=== PATIENT | male | born 1940 | race Caucasian/White ===

== ENCOUNTER → 2016-06-06 | Outpatient (CLI) | payer MEDICARE ==
[~2016-06-06] MED LIST: AMIO200T PO; APIX5TAB PO; BACTOIN EACH NARE; BUME1TAB PO; BUME1TAB28 PO; CARV12.52 PO; CARV3.125 PO; CARV6.25 PO; CEPH500C PO; CLON2TAB PO; COLC1TAB15 PO; COQ-100C2 PO; COUM2TAB PO; DIAZ5 PO; DIGO0.12 PO; ISOS20TA PO; ISOS60TA PO; MAGN1TAB14 PO; METO2.5T PO; MIRA33504 PO; MORP10S2 PO; MORP20SO2 SL; MORP25IN2; MULT-135 PO; NEXI40CA PO; PLAV75TA29 PO; POTA-163 PO; POTA75TA2 PO; PRED10 PO; REQU3TAB PO; ROSU10 PO; SPIRCAP INH; SYMB160A INH; VENTAER INH; VITATAB11 PO
[2016-06-06 14:18] LABS: BLOOD GAS CARBOXYHEMOGLOBIN 2.1 % (0-4); BLOOD GAS HCO3 26 mmol/L (22-26); BLOOD GAS O2 HGB SATURATION 79 % (90-100); BLOOD GAS OXYGEN CONTENT 13.3 Vol % (12.0-20.0); BLOOD GAS PCO2 34 mmHg (38-42); BLOOD GAS PO2 45 mmHg (61-120); BLOOD GAS TOTAL HGB 11.9 G/DL (12.0-16.0); TEMP CORR TO 98.6
[2016-06-06 14:19] LABS: CRITICAL VALUE YES; DRAW SITE RT RADIAL; FIO2 21 %; NUMBER OF ARTERIAL PUNCTURES 1; STAT NO; ULNAR PULSE PRESENT
--- NOTE | 2016-06-07 09:45 | RSPPFT ---
DATE OF PROCEDURE: 06/06/16 COMMENTS: Spirometry with FVC of 1.6 predicted 2.9, FEV1 of 0.9 predicted 2.0, FEV1/FVC ratio 57% predicted 70%. Post-bronchodilator FVC increases to 1.9 and FEV1 1.0. Severe air trapping is present with RV at 3.6 predicted 2.1. DLCO is 32% of predicted. IMPRESSION: On the basis of the above, patient has a moderately severe obstructive lung defect with responsiveness to acutely inhaled bronchodilator, significant air trapping and decreased DLCO. Patient does de-saturate with exertion.
== END ==
LOC: HRSP 13:10
PROVIDERS: ATTEND Internal Medicine Pulmonary Disease
DX: J61 Pneumoconiosis due to asbestos and other mineral fibers (principal)
CPT/HCPCS: 36600; 82805; 94060; 94620; 94726; 94729

== ENCOUNTER 2016-06-13 04:55 | Emergency (ER) | payer MEDICARE ==
[~2016-06-13] VITALS: Ht 170.2 cm; Wt 86.5 kg
[~2016-06-13 04:55] MED LIST changes: -AMIO200T PO; -APIX5TAB PO; -BACTOIN EACH NARE; -BUME1TAB PO; -BUME1TAB28 PO; -CARV12.52 PO; -CARV3.125 PO; -CARV6.25 PO; -CEPH500C PO; -CLON2TAB PO; -COLC1TAB15 PO; -COQ-100C2 PO; -COUM2TAB PO; -DIGO0.12 PO; -ISOS20TA PO; -ISOS60TA PO; -MAGN1TAB14 PO; -METO2.5T PO; -MIRA33504 PO; -MORP10S2 PO; -MORP20SO2 SL; -MORP25IN2; -MULT-135 PO; -NEXI40CA PO; -PLAV75TA29 PO; -POTA-163 PO; -POTA75TA2 PO; -PRED10 PO; -REQU3TAB PO; -ROSU10 PO; -SPIRCAP INH; -SYMB160A INH; -VITATAB11 PO
[2016-06-13 04:59] VITALS: BP 118/64; PULSE 83; RESP 18; TEMP 97.8; O2SAT 90
--- NOTE | 2016-06-13 05:16 | PD ---
HPI . Epistaxis Chief Complaint: Nosebleed Time Seen by Provider: 05:04 Travel History International Travel<30 days: No Contact w/Intl Traveler<30days: No Traveled to known affect area: No History of Present Illness HPI Patient presents with a chief complaint of epistaxis. He reports frequent nosebleeds. He is on oxygen at home. He has treated it at home with some nasal packing. Bleeding is currently controlled. PFSH Past Medical History Hx Anticoagulant Therapy: Yes Anemia: Yes Arthritis: Yes Atrial Fibrillation: Yes Anxiety: Yes Heart Rhythm Problems: Yes Cardiomyopathy: Yes High Cholesterol: Yes Chest Pain: Yes Congestive Heart Failure: Yes COPD: Yes Coronary Artery Disease: Yes Diabetes: No Diminished Hearing: Yes GERD: Yes Gout: Yes Hiatal Hernia: Yes Hypertension: Yes Kidney Stones: Yes Neurologic: No Immunizations Current: Yes Pneumonia: Yes Renal Failure: Yes Sleep Apnea: Yes (wears cpap) Past Surgical History AICD: Yes (pacer/defib [facility]) Cholecystectomy: Yes Coronary Artery Bypass Graft: Yes (multiple) Pacemaker: Yes ([facility]) Other Surgery: Yes Social History Alcohol Use: No Tobacco Use: No Substance Use: No Allergies-Medications (Allergen,Severity, Reaction): Coded Allergies: Ambien (Unverified Allergy, Mild, 06/13/16) Decadron (Verified Allergy, Unknown, 06/13/16) "steroid psychosis" HMG-CoA Reductase Inhibitors (Verified Allergy, Unknown, 06/13/16) muscle pain Hydrocodone (Verified Allergy, Unknown, 06/13/16) chest pain Reported Meds & Prescriptions Reported Meds & Active Scripts Active Valium (Diazepam) 5 Mg Tab 5 Mg PO TID PRN Reported Isosorbide Mononitrate 20 Mg Tab 60 Mg PO DAILY Take 2 doses 7 hours apart. Potassimin (Potassium) 75 Mg Tab 80 Meq PO BID Requip (Ropinirole) 3 Mg Tab 3 Mg PO HS Plavix (Clopidogrel Bisulfate) 75 Mg Tab 75 Mg PO DAILY Nexium (Esomeprazole DR) 40 Mg Capdr 40 Mg PO DAILY Morphine Liq (Morphine Sulfate) 20 Mg/5 Ml Liq 20 Mg PO Q4H Morphine Sulfate 25 Mg/Ml Inj Metolazone 2.5 Mg Tab 2.5 Mg PO DAILY Magnesium 400 Mg Tab 400 Mg PO DAILY Digoxin 0.125 Mg Tab 0.125 Mg PO DAILY Crestor (Rosuvastatin Calcium) 10 Mg Tab 10 Mg PO DAILY PRN Coumadin (Warfarin) 2 Mg Tab 2 Mg PO DAILY Coreg (Carvedilol) 6.25 Mg Tab 6.25 Mg PO BID Colchicine 0.6 Mg Tab 0.6 Mg PO DAILY Bumex (Bumetanide) 2 Mg Tab 2 Mg PO BID Clonazepam 2 Mg Tab 2 Mg PO DAILY Bactroban Nasal Oint (Mupirocin Nasal Oint) 2% Oint 1 Applic EACH NARE BID For 5 days. Amiodarone (Amiodarone HCl) 200 Mg Tab 200 Mg PO DAILY Ventolin Hfa 18 GM Inh (Albuterol Sulfate) 90 Mcg/Act Aer 2 Puff INH Q4-6H PRN Review of Systems HENT: Positive: Nosebleed Respiratory: Positive: Shortness of Breath (chronic shortness of breath on home oxygen) Physical Exam Narrative GENERAL: Healthy-appearing older man sitting on the side of the bed with oxygen. SKIN: Warm and dry. HEAD: Atraumatic. Normocephalic. EYES: Pupils equal and round. ENT: He has scant blood on the tissue that is in his left nostril. Kiesselbach' s plexus is hyperemic on the left. There is no active bleeding. NECK: Trachea midline. CARDIOVASCULAR: Regular rate and rhythm. RESPIRATORY: No accessory muscle use. MUSCULOSKELETAL: No obvious deformities. No edema. NEUROLOGICAL: Awake and alert. No obvious cranial nerve deficits. Motor grossly within normal limits. Normal speech. PSYCHIATRIC: Appropriate mood and affect; insight and judgment normal. Data Data Last Documented VS Vital Signs Date Time Temp Pulse Resp B/P Pulse Ox O2 Delivery O2 Flow Rate FiO2 06/13/16 04:59 97.8 83 18 118/64 90 Nasal Cannula Orders Cocaine 4% Top Soln (Cocaine 4% Top Soln (06/13/16 05:30) Lorazepam (Ativan) (06/13/16 06:00) MDM Medical Decision Making Medical Screen Exam Complete: Yes Emergency Medical Condition: Yes Differential Diagnosis Differential diagnosis of epistaxis includes but is not limited to local trauma , friable mucous membranes, coagulopathy, platelet dysfunction, upper respiratory infection, nasal fracture Narrative Course Patient presents for treatment of epistaxis. Procedures Procedure Narrative NASAL PACKING: The L nare was anesthetized topically with cocaine. The nare was packed with a cotton ball. I tried to insert a Merocel sponge. However, the patient has had a previous nasal fracture and insertion of Merocel sponge was not possible. Adequate control of bleeding was obtained. The patient was observed without recurrence of bleeding. Patient tolerated procedure well. Diagnosis Primary Impression: Epistaxis Patient Instructions: Epistaxis (DC), General Instructions Additional Instructions: You may remove the cotton ball before bed tonight. Disposition: 01 DISCHARGE HOME Condition: Stable Sharona Lemus MD Jun 13, 2016 05:16
[2016-06-13] MEDS ORDERED: COCAINE HCL 4% SOLN 4 ML VIAL TOPICAL ONE (05:30)
[2016-06-13] MEDS ORDERED: NEXI40CA PO (05:53)
[2016-06-13] MEDS ORDERED: PLAV75TA29 PO (05:53)
[2016-06-13] MEDS ORDERED: CLON2TAB PO (05:53)
[2016-06-13] MEDS ORDERED: COLC1TAB15 PO (05:53)
[2016-06-13] MEDS ORDERED: BUME1TAB28 PO (05:53)
[2016-06-13] MEDS ORDERED: DIGO0.12 PO (05:53)
[2016-06-13] MEDS ORDERED: ROSU10 PO (05:53)
[2016-06-13] MEDS ORDERED: MAGN1TAB14 PO (05:53)
[2016-06-13] MEDS ORDERED: MORP25IN2 (05:53)
[2016-06-13] MEDS ORDERED: METO2.5T PO (05:53)
[2016-06-13] MEDS ORDERED: CARV6.25 PO (05:53)
[2016-06-13] MEDS ORDERED: MORP10S2 PO (05:53)
[2016-06-13] MEDS ORDERED: AMIO200T PO (05:53)
[2016-06-13] MEDS ORDERED: BACTOIN EACH NARE (05:53)
[2016-06-13] MEDS ORDERED: COUM2TAB PO (05:53)
[2016-06-13] MEDS ORDERED: ISOS20TA PO (05:57)
[2016-06-13] MEDS ORDERED: REQU3TAB PO (05:57)
[2016-06-13] MEDS ORDERED: POTA75TA2 PO (05:57)
[2016-06-13] MEDS ORDERED: LORazepam 2 MG TAB PO ONE (06:00)
[2016-06-13 06:52] VITALS: BP 99/58; PULSE 81; RESP 20; O2SAT 98
[2016-06-13 06:55] VITALS: BP 99/58
== END 2016-06-13 07:07 | disposition home or self-care (01) ==
LOC: NEPC 04:55
DX: R04.0 Epistaxis (principal); Z99.81 Dependence on supplemental oxygen; I48.91 Unspecified atrial fibrillation; E78.00 Pure hypercholesterolemia, unspecified; J44.9 Chronic obstructive pulmonary disease, unspecified; I25.10 Atherosclerotic heart disease of native coronary artery without angina pectoris; K21.9 Gastro-esophageal reflux disease without esophagitis; I10 Essential (primary) hypertension; M10.9 Gout, unspecified; G47.30 Sleep apnea, unspecified; Z79.01 Long term (current) use of anticoagulants

== ENCOUNTER 2016-07-17 15:03 | Inpatient (IN) | payer MEDICARE ==
[~2016-07-17] VITALS: Ht 167.6 cm; Wt 90.1 kg
[~2016-07-17 15:03] MED LIST changes: +AMIO200T PO; +BACTOIN EACH NARE; +BUME1TAB28 PO; +CARV6.25 PO; +CLON2TAB PO; +COLC1TAB15 PO; +COUM2TAB PO; +DIGO0.12 PO; +ISOS20TA PO; +MAGN1TAB14 PO; +METO2.5T PO; +MORP10S2 PO; +MORP25IN2; +NEXI40CA PO; +PLAV75TA29 PO; +POTA75TA2 PO; +REQU3TAB PO; +ROSU10 PO
[2016-07-17 15:06] VITALS: BP 105/61; PULSE 83; RESP 16; TEMP 97.4; O2SAT 95
[2016-07-17] MEDS ORDERED: BUMETANIDE INJ 1 MG/4 ML VIAL IV PUSH ONE (16:15)
[2016-07-17] MEDS ORDERED: SODIUM CHLORIDE 0.9% FLUSH 5 ML FLUSH IVF PRN (16:15)
[2016-07-17 16:34] LABS: BASOPHIL % 0.7 % (0.0-2.0); EOSINOPHIL # 0.1 TH/MM3 (0-0.4); HEMO FLAGS DIFF FINAL; LYMPH % 10.5 % (9.0-44.0); LYMPHOCYTE # 0.7 TH/MM3 (1.0-4.8); MEAN CELL VOLUME 85.4 FL (80.0-100.0); MEAN CORPUSCULAR HEMOGLOBIN 28.4 PG (27.0-34.0); MEAN CORPUSCULAR HGB CONC 33.3 % (32.0-36.0); MONO % 8.9 % (0.0-8.0); NEUT % 77.9 % (16.0-70.0); PLATELET COUNT 110 TH/MM3 (150-450); RED BLOOD COUNT 4.22 MIL/MM3 (4.50-5.90); RED CELL DISTRIBUTION WIDTH 21.6 % (11.6-17.2); WHITE BLOOD COUNT 6.4 TH/MM3 (4.0-11.0)
--- NOTE | 2016-07-17 16:38 | RADRPT ---
EXAM DATE/TIME: 07/17/2016 16:31 [facility] COMPARISON: CHEST SINGLE AP, August 25, 2015, 6:33. INDICATIONS : Patient has become increasinly more short of breath in the past week. MEDICAL HISTORY : None. SURGICAL HISTORY : CABG. Pacemaker. ENCOUNTER: Initial ACUITY: 1 week PAIN SCORE: 0/10 LOCATION: Bilateral chest FINDINGS: Again noted is prior median sternotomy cardiac surgery with a pacemaker AICD device overlying the lef t hemithorax. Atherosclerotic changes are noted of the aorta with compensated left ventricular cardio megaly. No acute process or infiltrate. CONCLUSION: No acute disease. Matt Brown MD on July 17, 2016 at 16:36 Board Certified Radiologist. This report was verified electronically.
[2016-07-17 16:47] LABS: APTT (PATIENT) 32.5 SEC (24.3-30.1); INTERNATIONAL NORMALIZED RATIO 2.1 RATIO; PROTHROMBIN TIME - PATIENT 24.3 SEC (9.8-11.6)
[2016-07-17 16:52] LABS: ANION GAP 10 MEQ/L (5-15); AST (GOT) 17 U/L (15-37); BICARBONATE 31.4 MEQ/L (21.0-32.0); BLOOD UREA NITROGEN 37 MG/DL (7-18); CHLORIDE 95 MEQ/L (98-107); GLOMERULAR FILTRATION RATE 20 ML/MIN (>89); POTASSIUM 4.1 MEQ/L (3.5-5.1); SODIUM (NA) 136 MEQ/L (136-145)
[2016-07-17 16:58] LABS: ALKALINE PHOSPHATASE 80 U/L (45-117); ALT (GPT) 20 U/L (12-78); TOTAL BILIRUBIN ADULT 1.1 MG/DL (0.2-1.0)
[2016-07-17] MEDS ORDERED: MORP20SO2 SL (17:09)
[2016-07-17] MEDS ORDERED: CARV12.52 PO (17:09)
[2016-07-17] MEDS ORDERED: COUM2TAB PO (17:10)
[2016-07-17] MEDS ORDERED: SYMB160A INH (17:10)
[2016-07-17] MEDS ORDERED: MIRA33504 PO (17:10)
[2016-07-17] MEDS ORDERED: MULT-135 PO (17:10)
[2016-07-17] MEDS ORDERED: SPIRCAP INH (17:10)
[2016-07-17] MEDS ORDERED: POTA-163 PO (17:10)
[2016-07-17] MEDS ORDERED: COQ-100C2 PO (17:10)
[2016-07-17] MEDS ORDERED: VITATAB11 PO (17:10)
[2016-07-17 17:30] VITALS: O2SAT 97
--- NOTE | 2016-07-17 17:40 | PD ---
HPI Chief Complaint: Respiratory Symptoms Time Seen by Provider: 15:59 Travel History International Travel<30 days: No Contact w/Intl Traveler<30days: No Traveled to known affect area: No History of Present Illness HPI This is a 75-year-old male who has a history of congestive heart failure and chronic kidney disease who presents to the emergency department with increasing generalized weakness and exertional shortness of breath it's been present over the past week worsening yesterday, constant. He has had increasing leg swelling. He went to his primary care doctor who told him to take Bumex as long as his blood pressure was okay, but his says his blood pressures been running in the 80s and 90s so she wasn't able to give him his diuretic. He denies any chest pain, fevers, chills or other symptoms. PFSH Past Medical History Hx Anticoagulant Therapy: Yes (PLAVIX, COUMADIN ) Anemia: Yes Arthritis: Yes Atrial Fibrillation: Yes Anxiety: Yes Heart Rhythm Problems: Yes Cardiomyopathy: Yes Cardiovascular Problems: Yes (CHF, CARDIAC STENT ) High Cholesterol: Yes Chest Pain: Yes Congestive Heart Failure: Yes COPD: Yes Coronary Artery Disease: Yes Diabetes: No Diminished Hearing: Yes GERD: Yes Gout: Yes Hiatal Hernia: Yes Hypertension: Yes Kidney Stones: Yes Neurologic: No Respiratory: Yes (COPD, POSSIBLE MA ) Immunizations Current: Yes Pneumonia: Yes Renal Failure: Yes Sleep Apnea: Yes (wears cpap) Past Surgical History AICD: Yes (pacer/defib [facility]) Cholecystectomy: Yes Coronary Artery Bypass Graft: Yes (multiple) Pacemaker: Yes ([facility]) Other Surgery: Yes Social History Alcohol Use: No Tobacco Use: No Substance Use: No Allergies-Medications (Allergen,Severity, Reaction): Coded Allergies: Ambien (Unverified Allergy, Mild, 07/17/16) Decadron (Verified Allergy, Unknown, 07/17/16) "steroid psychosis" HMG-CoA Reductase Inhibitors (Verified Allergy, Unknown, 07/17/16) muscle pain Hydrocodone (Verified Allergy, Unknown, 07/17/16) chest pain Reported Meds & Prescriptions Reported Meds & Active Scripts Active Valium (Diazepam) 5 Mg Tab 5 Mg PO TID PRN Reported Symbicort Inh (Budesonide/Formoterol Fumarate) 160-4.5 Mcg/Act Aero 2 Puff INH BID Spiriva Handihaler (Tiotropium Inh) 18 Mcg Cap 18 Mcg INH DAILY 1 capsule = 18 mcg Coq-10 (Coenzyme Q10 (Ubidecarenone)) 100 Mg Cap 100 Mg PO DAILY Multi Vitamin (Multiple Vitamin) 1 Tab Tab 1 Tab PO DAILY Vitamin B Complex (B-Complex Vitamins) 1 Tab 1 Tab PO DAILY Miralax Powder (Polyethylene Glycol 3350 Powder) 17 Gm Powd 17 Gm PO DAILY PRN Mix and dissolve one measuring capful (17 grams) in water or juice. Coumadin (Warfarin) 2 Mg Tab 1 Mg PO MOFR Take 1/2 tablet (1mg) daily in the pm on Friday and Friday Potassium Chloride ER (Potassium Chloride) 20 Meq Tab 80 Meq PO BID Morphine Liq (Morphine Sulfate) 20 Mg/Ml Liq 10 Mg SL Q3H PRN Give (0.5 ml)for severe pain/shortness of breath Carvedilol 12.5 Mg Tab 12.5 Mg PO BID Isosorbide Mononitrate 20 Mg Tab 60 Mg PO DAILY Take 2 doses 7 hours apart. Requip (Ropinirole) 3 Mg Tab 3 Mg PO HS Plavix (Clopidogrel Bisulfate) 75 Mg Tab 75 Mg PO DAILY Nexium (Esomeprazole DR) 40 Mg Capdr 40 Mg PO DAILY Metolazone 2.5 Mg Tab 2.5 Mg PO SUTH Take 1 tablet (2.5mg) 30 minutes before taking Bumex on Friday and Magnesium 400 Mg Tab 400 Mg PO DAILY Digoxin 0.125 Mg Tab 0.125 Mg PO MOWEFR Take 1 tablet (0.125mg) daily on Friday,Friday and Friday Crestor (Rosuvastatin Calcium) 10 Mg Tab 10 Mg PO DAILY Coumadin (Warfarin) 2 Mg Tab 2 Mg PO SUTUWETHSA Take 1 tablet (2mg) daily in the pm on Friday,Friday,Friday, and Friday Colchicine 0.6 Mg Tab 0.6 Mg PO MOWEFR Take 1 tablet (0.6mg) daily on Friday,Friday and Friday Bumex (Bumetanide) 2 Mg Tab 2 Mg PO BID Clonazepam 2 Mg Tab 2 Mg PO HS Bactroban Nasal Oint (Mupirocin Nasal Oint) 2% Oint 1 Applic EACH NARE DAILY PRN Amiodarone (Amiodarone HCl) 200 Mg Tab 100 Mg PO MOWEFR Take 1/2 tablet (100mg) daily on Friday,Friday and Friday Ventolin Hfa 18 GM Inh (Albuterol Sulfate) 90 Mcg/Act Aer 2 Puff INH BID PRN Review of Systems Except as stated in HPI: all other systems reviewed are Neg Physical Exam Narrative GENERAL:Well appearing, no acute distress SKIN: Warm and dry. HEAD: Atraumatic. Normocephalic. EYES: Pupils equal and round. No injection or drainage. ENT: Moist mucous membranes NECK: Trachea midline. CARDIOVASCULAR: Regular rate and rhythm. No murmur appreciated. 3+ pitting edema in the bilateral lower extremities. RESPIRATORY: Clear to auscultation. Breath sounds equal bilaterally. GASTROINTESTINAL: Abdomen soft, non-tender, nondistended. MUSCULOSKELETAL: No obvious deformities. NEUROLOGICAL: Awake and alert. No obvious cranial nerve deficits. Moving all extremities. PSYCHIATRIC: Appropriate mood and affect; insight and judgment normal. Data Data Last Documented VS Vital Signs Date Time Temp Pulse Resp B/P Pulse Ox O2 Delivery O2 Flow Rate FiO2 07/17/16 19:13 97 Nasal Cannula 4 07/17/16 16:08 86 18 07/17/16 15:06 97.4 105/61 Orders Complete Blood Count With Diff (07/17/16 16:11) Comprehensive Metabolic Panel (07/17/16 16:11) B-Type Natriuretic Peptide (07/17/16 16:11) Act Partial Throm Time (Ptt) (07/17/16 16:11) Prothrombin Time / Inr (Pt) (07/17/16 16:11) Troponin I (07/17/16 16:11) Iv Access Insert/Monitor (07/17/16 16:11) Ecg Monitoring (07/17/16 16:11) Oximetry (07/17/16 16:11) Oxygen Administration (07/17/16 16:11) Chest, Single Ap (07/17/16 16:11) Sodium Chloride 0.9% Flush (Ns Flush) (07/17/16 16:15) Bumetanide Inj (Bumex Inj) (07/17/16 16:15) Admit Order (Ed Use Only) (07/17/16 19:23) Labs Laboratory Tests Test 07/17/16 16:00 White Blood Count 6.4 TH/MM3 Red Blood Count 4.22 MIL/MM3 Hemoglobin 12.0 GM/DL Hematocrit 36.0 % Mean Corpuscular Volume 85.4 FL Mean Corpuscular Hemoglobin 28.4 PG Mean Corpuscular Hemoglobin 33.3 % Concent Red Cell Distribution Width 21.6 % Platelet Count 110 TH/MM3 Mean Platelet Volume 9.6 FL Neutrophils (%) (Auto) 77.9 % Lymphocytes (%) (Auto) 10.5 % Monocytes (%) (Auto) 8.9 % Eosinophils (%) (Auto) 2.0 % Basophils (%) (Auto) 0.7 % Neutrophils # (Auto) 5.0 TH/MM3 Lymphocytes # (Auto) 0.7 TH/MM3 Monocytes # (Auto) 0.6 TH/MM3 Eosinophils # (Auto) 0.1 TH/MM3 Basophils # (Auto) 0.0 TH/MM3 CBC Comment DIFF FINAL Differential Comment Prothrombin Time 24.3 SEC Prothromb Time International 2.1 RATIO Ratio Activated Partial 32.5 SEC Thromboplast Time Sodium Level 136 MEQ/L Potassium Level 4.1 MEQ/L Chloride Level 95 MEQ/L Carbon Dioxide Level 31.4 MEQ/L Anion Gap 10 MEQ/L Blood Urea Nitrogen 37 MG/DL Creatinine 3.03 MG/DL Estimat Glomerular Filtration 20 ML/MIN Rate Random Glucose 137 MG/DL Calcium Level 9.5 MG/DL Total Bilirubin 1.1 MG/DL Aspartate Amino Transf 17 U/L (AST/SGOT) Alanine Aminotransferase 20 U/L (ALT/SGPT) Alkaline Phosphatase 80 U/L Troponin I 0.02 NG/ML B-Type Natriuretic Peptide 244 PG/ML Total Protein 7.7 GM/DL Albumin 3.8 GM/DL [facility] Medical Decision Making Medical Screen Exam Complete: Yes Emergency Medical Condition: Yes Interpretation(s) Afebrile, no tachycardia, normotensive Anemia Thrombocytopenia Renal insufficiency similar to prior BNP is 244 Troponin is 0.02 Differential Diagnosis Congestive heart failure, pneumonia, COPD, asbestosis, myocardial infarction Narrative Course This is a 75-year-old male who has a history of congestive heart failure and COPD as well as chronic kidney disease who presents to the emergency department with increasing shortness of breath and weakness. His has noted increasing leg swelling and he has gained about 4 pounds. She has been hesitant to give the patient has Bumex because his blood pressure has been in the 90s systolic. Here in the emergency department patient has had a blood pressure anywhere from the 90s to 110s systolic. He looks quite well. He was placed on a monitor and an IV was established. Labs are at his baseline. Chest x-rays reassuring. He was given a dose of IV Bumex and diuresed appropriately. I was hoping to discharge the patient but we performed an ambulatory oxygen saturation and he became dyspneic and desaturated to 86% once walking a short distance. I think his hypoxia is likely secondary to his chronic pulmonary fibrosis and asbestosis, but may also be secondary to some volume overload. Patient will be admitted for continued IV diuresis and possible pulmonary consultation. Physician Communication Physician Communication Discussed with Dr. Mendoza Diagnosis Primary Impression: Hypoxia Admitting Information Admitting Physician Requests: Admit Kya Santos MD Jul 17, 2016 17:40
[2016-07-17 19:41] VITALS: BP 104/71; PULSE 60; RESP 16; TEMP 97.8; O2SAT 97
[2016-07-17] MEDS ORDERED: MORPHINE SULFATE ORAL SOLN 10 MG/0.5 ML SYRINGE SL PRN (20:45)
[2016-07-17] MEDS ORDERED: NALOXONE HCL 0.4 MG/ML AMP IV PRN (20:45)
[2016-07-17] MEDS ORDERED: ALBUTEROL SULFATE 90 MCG/ACT HFA 8 GM INHALER INH PRN (20:45)
[2016-07-17] MEDS ORDERED: AMIODARONE 200 MG TAB PO SCH (20:45)
[2016-07-17] MEDS ORDERED: SODIUM CHLORIDE 0.9% FLUSH 5 ML FLUSH FLUSH PRN (20:45)
[2016-07-17] MEDS ORDERED: MUPIROCIN 2% OINT 1 APPLIC/GM SYR EACH NARE PRN (20:45)
[2016-07-17] MEDS: CARVEDILOL 12.5 MG TAB PO SCH (21:00)
[2016-07-17] MEDS ORDERED: methylPREDNISolone SOD SUCC 125 MG/2 ML VIAL IVP SCH (21:00)
[2016-07-17] MEDS: BUMETANIDE INJ 1 MG/4 ML VIAL IV PUSH SCH (21:00)
[2016-07-17 21:39] VITALS: BP 95/66; PULSE 84; RESP 16; O2SAT 97
[2016-07-17] MEDS: SODIUM CHLORIDE 0.9% FLUSH 5 ML FLUSH FLUSH SCH (21:40)
[2016-07-17 22:00] VITALS: BP 91/67; PULSE 83; RESP 19; TEMP 95.4; O2SAT 94
[2016-07-17 22:20] LABS: BLOOD, URINE NEG (NEG); COMMENT (UR) CULT NOT INDICATED; CULTURE IF INDICATED CULT NOT INDICATED; GLUCOSE,URINE NEG (NEG); HYALINE CAST, URINE 4 /lpf (RARE); KETONE, URINE NEG (NEG); MUCUS URINE FEW /lpf (OCC); NITRITE,URINE NEG (NEG); PH, URINE 6.5 (5.0-8.5); URINE COLOR YELLOW (YELLW/STRAW)
[2016-07-18] VITALS (14 sets, daily range): BP systolic 83–109; BP diastolic 62–84; PULSE 80–86; RESP 16–20; TEMP 95.6–98.2; O2SAT 91–99
[2016-07-18] MEDS: POTASSIUM CHLORIDE 20 MEQ CONTROLLED RELEASE TAB PO SCH ×3 (00:04→23:21)
[2016-07-18] MEDS: clonazePAM 1 MG TAB PO SCH ×2 (00:05→23:20)
[2016-07-18] MEDS: BUDESONIDE-FORMOTEROL 160/4.5 MCG INHALER INH SCH ×3 (00:06→21:00)
[2016-07-18] MEDS: ALBUMIN HUMAN 25% 12.5 GM/50 ML BAGP IV SCH ×3 (00:07→23:21)
[2016-07-18 02:56] LABS: AUTOMATED NEUTROPHIL # 5.1 TH/MM3 (1.8-7.7); BASOPHIL # 0.1 TH/MM3 (0-0.2); BASOPHIL % 0.8 % (0.0-2.0); EOSINOPHIL # 0.1 TH/MM3 (0-0.4); EOSINOPHIL % 1.6 % (0.0-4.0); HEMATOCRIT 32.5 % (39.0-51.0); HEMO FLAGS DIFF FINAL; LYMPH % 11.8 % (9.0-44.0); LYMPHOCYTE # 0.8 TH/MM3 (1.0-4.8); MEAN CELL VOLUME 85.5 FL (80.0-100.0); MEAN CORPUSCULAR HEMOGLOBIN 28.3 PG (27.0-34.0); MEAN CORPUSCULAR HGB CONC 33.1 % (32.0-36.0); MONO % 9.5 % (0.0-8.0); NEUT % 76.3 % (16.0-70.0); PLATELET COUNT 104 TH/MM3 (150-450); RED CELL DISTRIBUTION WIDTH 22.1 % (11.6-17.2); WHITE BLOOD COUNT 6.7 TH/MM3 (4.0-11.0)
[2016-07-18 03:18] LABS: BICARBONATE 30.2 MEQ/L (21.0-32.0); POTASSIUM 4.5 MEQ/L (3.5-5.1); URIC ACID 11.7 MG/DL (2.6-7.2)
[2016-07-18 03:22] LABS: INDIRECT BILIRUBIN 0.6 MG/DL (0.0-0.8); TOTAL BILIRUBIN ADULT 1.1 MG/DL (0.2-1.0)
[2016-07-18] MEDS: TIOTROPIUM BROMIDE 18 MCG INH INH SCH (09:00)
[2016-07-18] MEDS: BUMETANIDE INJ 1 MG/4 ML VIAL IV PUSH SCH (09:00)
[2016-07-18] MEDS: SODIUM CHLORIDE 0.9% FLUSH 5 ML FLUSH FLUSH SCH ×2 (09:00→23:22)
[2016-07-18] MEDS ORDERED: NON-FORMULARY DRUG (B-Complex Vitamins (Vitamin B Complex) 1 TAB) PO SCH (09:00)
[2016-07-18] MEDS ORDERED: NON-FORMULARY DRUG (Coenzyme Q10 (Ubidecarenone) (Coq-10) 100 MG) PO SCH (09:00)
[2016-07-18] MEDS: METOLAZONE 2.5 MG TAB PO SCH (09:00)
[2016-07-18] MEDS: ISOSORBIDE MONONITRATE 60 MG TAB PO SCH (09:09)
[2016-07-18] MEDS: CLOPIDOGREL 75 MG TAB PO SCH (09:09)
[2016-07-18] MEDS: ATORVASTATIN 20 MG TAB PO SCH (09:10)
[2016-07-18] MEDS: MAGNESIUM OXIDE 400 MG TAB PO SCH (09:10)
[2016-07-18] MEDS: MULTIVITAMIN TAB PO SCH (09:10)
[2016-07-18] MEDS: VITAMIN B COMPLEX/VIT C TAB PO SCH (09:11)
[2016-07-18] MEDS: CARVEDILOL 12.5 MG TAB PO SCH ×2 (09:11→23:20)
[2016-07-18] MEDS: PANTOPRAZOLE SOD 40 MG DELAYED RELEASE TAB PO SCH (09:11)
--- NOTE | 2016-07-18 09:42 | HHI.HP ---
HPI Service [facility] Primary Care Physician Paul Reyez M.D. Admission Diagnosis hypoxia Diagnoses: Chief Complaint: SOB Travel History International Travel<30 Days: No Contact w/Intl Traveler <30 Da: No Traveled to Known Affected Are: No History of Present Illness This is a pleasant 75-year-old white male with significant past medical history of CAD, cardiomyopathy, chronic kidney disease stage IV, restrictive lung disease and interstitial fibrosis, oxygen dependent, obstructive sleep apnea, chronic A. fib, AICD, cardiac cath in 2016 with stent placement. Patient is a part-time resident in the area, the rest of the year he lives in [facility]. 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 Patient presented to the emergency room with complaint of increasing generalized weakness and worsening dyspnea on exertion. Patient is not a very good historian, he is requesting that I speak to his who just left. He is able to provide some details and the rest is obtained from review of previous admissions and the ER record. According to the patient, he has had ongoing shortness of breath for the last 4 months that has been worsening in the last couple of days. Although he has lost some weight as he's had very little appetite, he has been retaining fluid in the last couple days. Per ER report, he went to see primary care physician who told him to take Bumex as long as his blood pressure was okay but his indicated that the blood pressure had been running in the 80s and 90s so she was not able to give him the diuretic. Review from previous admission shows that patient's blood pressure typically runs 90s to 100s. Indicates he's had increased dyspnea on exertion, he's only able to walk 10 feet and then becomes extreme severely short of breath with some mild chest tightness. Denies any fever, no chills. Has had a cough that is mild, no sputum. He has been extremely weak. He uses oxygen at home at 2 L. He did have a cardiac catheter last year and had a stent placement. He does have chronic kidney disease stage IV and continues to make urine. Patient was evaluated in the emergency room, laboratory workup was completed. Temperature 97.4, pulse rate 86, respiratory rate 18, blood pressure 105/61 sats 97%. WBC 6.4, hemoglobin 12, hematocrit 36. Platelet count 110. B UN appears at baseline, B1 37, creatinine 3.03 with GFR of 20. B natruretic peptide 244. Chest x-ray did not reveal any acute findings. He was given IV Bumex in the emergency room and has been diuresing well. He has leg edema has improved. Patient was ambulated in the emergency room and was noted with dyspnea and desaturated to 86. Patient is now evaluated in his room, he's noted with periorbital cyanosis and clubbing. He is short of breath with conversation. Sats are 91% on 4 L. I have put a stat request to transfer patient to [facility]. Patient is admitted for further evaluation and treatment. Review of Systems Constitutional: COMPLAINS OF: Fatigue, Weight loss, Chills, Change in appetite Endocrine: DENIES: Heat/cold intolerance, Polydipsia, Polyuria, Polyphagia Respiratory: COMPLAINS OF: Cough, Shortness of breath Cardiovascular: COMPLAINS OF: Dyspnea on Exertion, Lower Extremity Edema Past Family Social History Past Medical History Coronary artery disease A. fib Chronic kidney disease stage IV COPD AICD, originally placed 2012 Multiple cardiac catheterizations Hyperlipidemia Asbestosis Cardiomegaly Bibasilar interstitial fibrosis Severe restrictive disease Gout Hypertension GERD Had hiatal hernia CHF Restless leg syndrome Loss of hearing Angina Blepharitis Anxiety depression Obstructive sleep apnea Chronic anemia Kidney stones Gynecomastia EF 40-50% per echo in 2012 Previous blood transfusions cardiac cath and stent Summer 2015 after he went back to [place] Past Surgical History Angioplasty 1989 Multiple cardiac catheterization Cholecystectomy MILAGROS and cardioversion in 1999, 2006, 2008 CABG 5 in 1990 CABG 5 in 1996 Defibrillator placement Reported Medications Reported Meds & Active Scripts Active Valium (Diazepam) 5 Mg Tab 5 Mg PO TID PRN Reported Symbicort Inh (Budesonide/Formoterol Fumarate) 160-4.5 Mcg/Act Aero 2 Puff INH BID Spiriva Handihaler (Tiotropium Inh) 18 Mcg Cap 18 Mcg INH DAILY 1 capsule = 18 mcg Coq-10 (Coenzyme Q10 (Ubidecarenone)) 100 Mg Cap 100 Mg PO DAILY Multi Vitamin (Multiple Vitamin) 1 Tab Tab 1 Tab PO DAILY Vitamin B Complex (B-Complex Vitamins) 1 Tab 1 Tab PO DAILY Miralax Powder (Polyethylene Glycol 3350 Powder) 17 Gm Powd 17 Gm PO DAILY PRN Mix and dissolve one measuring capful (17 grams) in water or juice. Coumadin (Warfarin) 2 Mg Tab 1 Mg PO MOFR Take 1/2 tablet (1mg) daily in the pm on Friday and Friday Potassium Chloride ER (Potassium Chloride) 20 Meq Tab 80 Meq PO BID Morphine Liq (Morphine Sulfate) 20 Mg/Ml Liq 10 Mg SL Q3H PRN Give (0.5 ml)for severe pain/shortness of breath Carvedilol 12.5 Mg Tab 12.5 Mg PO BID Isosorbide Mononitrate 20 Mg Tab 60 Mg PO DAILY Take 2 doses 7 hours apart. Requip (Ropinirole) 3 Mg Tab 3 Mg PO HS Plavix (Clopidogrel Bisulfate) 75 Mg Tab 75 Mg PO DAILY Nexium (Esomeprazole DR) 40 Mg Capdr 40 Mg PO DAILY Metolazone 2.5 Mg Tab 2.5 Mg PO SUTH Take 1 tablet (2.5mg) 30 minutes before taking Bumex on Friday and Magnesium 400 Mg Tab 400 Mg PO DAILY Digoxin 0.125 Mg Tab 0.125 Mg PO MOWEFR Take 1 tablet (0.125mg) daily on Friday,Friday and Friday Crestor (Rosuvastatin Calcium) 10 Mg Tab 10 Mg PO DAILY Coumadin (Warfarin) 2 Mg Tab 2 Mg PO SUTUWETHSA Take 1 tablet (2mg) daily in the pm on Friday,Friday,Friday, and Friday Colchicine 0.6 Mg Tab 0.6 Mg PO MOWEFR Take 1 tablet (0.6mg) daily on Friday,Friday and Friday Bumex (Bumetanide) 2 Mg Tab 2 Mg PO BID Clonazepam 2 Mg Tab 2 Mg PO HS Bactroban Nasal Oint (Mupirocin Nasal Oint) 2% Oint 1 Applic EACH NARE DAILY PRN Amiodarone (Amiodarone HCl) 200 Mg Tab 100 Mg PO MOWEFR Take 1/2 tablet (100mg) daily on Friday,Friday and Friday Ventolin Hfa 18 GM Inh (Albuterol Sulfate) 90 Mcg/Act Aer 2 Puff INH BID PRN Allergies: Coded Allergies: Ambien (Unverified Allergy, Mild, 07/17/16) Decadron (Verified Allergy, Unknown, 07/17/16) "steroid psychosis" HMG-CoA Reductase Inhibitors (Verified Allergy, Unknown, 07/17/16) muscle pain Hydrocodone (Verified Allergy, Unknown, 07/17/16) chest pain Active Ordered Medications Inpatient Medications Albumin Human (Albumin 25% Inj) 12.5 gm Q12H IV Last administered on 07/18/16 00:07; Start 07/17/16 at 21:00; Stop 07/18/16 at 23:00 Albuterol Sulfate (Proair Hfa Inh) 2 puff BID PRN INH SHORTNESS OF BREATH; Start 07/17/16 at 20:45 Amiodarone HCl (Cordarone) 100 mg MOWEFR PO ; Start 07/19/16 at 09:00 Atorvastatin Calcium (Lipitor) 20 mg DAILY PO Last administered on 07/18/16 09 :10; Start 07/18/16 at 09:00 Budesonide/ Formoterol Fumarate (Symbicort 160-4.5 Inh) 2 puff BID INH Last administered on 07/18/16 00:06; Start 07/17/16 at 21:00 Bumetanide (Bumex Inj) 1 mg BID@,18 IV PUSH ; Start 07/17/16 at 21:00 Carvedilol (Coreg) 12.5 mg BID PO Last administered on 07/18/16 09:11; Start 07/17/16 at 21:00 Clonazepam (KlonoPIN) 2 mg HS PO Last administered on 07/18/16 00:05; Start at 21:00 Clopidogrel Bisulfate (Plavix) 75 mg DAILY PO Last administered on 07/18/16 09 :09; Start 07/18/16 at 09:00 Colchicine (Colchicine) 0.6 mg MOWEFR PO ; Start 07/19/16 at 09:00 Diazepam (Valium) 5 mg TID PRN PO SPASM; Start 07/17/16 at 20:45 Digoxin (Lanoxin) 0.125 mg MOWEFR PO ; Start 07/19/16 at 09:00 Isosorbide Mononitrate (Imdur) 60 mg DAILY PO Last administered on 07/18/16 09 :09; Start 07/18/16 at 09:00 IV Flush (NS Flush) 2 ml BID FLUSH Last administered on 07/17/16 21:40; Start 07/17/16 at 21:00 Magnesium Oxide (Mag-Ox) 400 mg DAILY PO Last administered on 07/18/16 09:10; Start 07/18/16 at 09:00 Methylprednisolone Sodium Succinate (SoluMEDROL INJ) 80 mg PAPER SORTER AND COUNTER IVP ; Start 07/17/16 at 21:00; Stop 07/18/16 at 20:59 Metolazone (Zaroxolyn) 2.5 mg SUTH PO ; Start 07/18/16 at 09:00 Morphine Sulfate (Roxanol Liq) 10 mg Q3H PRN SL PAIN SCALE 6 TO 10; Start at 20:45 Multivitamins (Theragran) 1 tab DAILY PO Last administered on 07/18/16 09:10; Start 07/18/16 at 09:00 Mupirocin (Bactroban Nasal 2% Oint) 1 applic DAILY PRN EACH NARE DRY NOSE; Start 07/17/16 at 20:45 Naloxone HCl (Narcan Inj) 0.4 mg UNSCH PRN IV SEE LABEL COMMENTS; Start at 20:45 Pantoprazole Sodium (Protonix) 40 mg DAILY PO Last administered on 07/18/16 09 :11; Start 07/18/16 at 09:00 Patient Medication Teaching (Coumadin Booklet) 1 ONCE ONCE XX ; Start 07/18/16 at 16:00; Stop 07/18/16 at 16:01 Polyethylene Glycol (Miralax) 17 gm DAILY PRN PO CONSTIPATION; Start 07/17/16 at 20:45 Potassium Chloride (KCl) 80 meq BID PO Last administered on 07/18/16 09:11; Start 07/17/16 at 21:00 Ropinirole HCl (Requip) 3 mg HS PO Last administered on 07/18/16 00:05; Start 07/17/16 at 21:00 Tiotropium [place] (Spiriva Inh) 18 mcg DAILY INH ; Start 07/18/16 at 09:00 Vitamin B Complex/ Vitamin C ([place] C) 1 tab DAILY PO Last administered on 09:11; Start 07/18/16 at 09:00 Warfarin Sodium (Coumadin) 2 mg SUTUWETHSA PO ; Start 07/18/16 at 16:00 Family History Positive for history of coronary artery disease Social History Patient is , 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 Has grown children. Has never smoked, no alcohol, no illegal drug use. Physical Exam Vital Signs Vital Signs Date Time Temp Pulse Resp B/P Pulse Ox O2 Delivery O2 Flow Rate FiO2 07/18/16 04:45 97.9 80 19 89/66 91 07/18/16 00:45 96.3 80 20 89/62 92 07/17/16 23:30 Nasal Cannula 4.00 07/17/16 22:00 95.4 83 19 91/67 94 07/17/16 21:39 84 16 95/66 97 Room Air 07/17/16 19:41 97.8 60 16 104/71 97 Room Air 07/17/16 19:13 97 Nasal Cannula 4 07/17/16 17:30 97 Nasal Cannula 4 07/17/16 16:08 86 18 96 Nasal Cannula 4 07/17/16 15:06 97.4 83 16 105/61 95 Nasal Cannula 4 Physical Exam GENERAL: This is a well-nourished, well-developed patient, in no apparent distress. SKIN: Bluish discoloration around lips, finger tips with clubbing, and cyanosis. HEAD: Atraumatic. Normocephalic. No temporal or scalp tenderness. EYES: Pupils equal round and reactive. Extraocular motions intact. No scleral icterus. No injection or drainage. ENT: Nose without bleeding, purulent drainage or septal hematoma. Throat without erythema, tonsillar hypertrophy or exudate. Uvula midline. Airway patent. NECK: Trachea midline. No JVD or lymphadenopathy. Supple, nontender, no meningeal signs. CARDIOVASCULAR: Regular rate and rhythm with soft murmur. Bilat LE with pretibial edema, pulses 1+ bilat. RESPIRATORY: Bibasilar rales. Mildly SOB with conversation GASTROINTESTINAL: Abdomen soft, non-tender, nondistended. No hepato-splenomegaly , or palpable masses. No guarding. MUSCULOSKELETAL: Extremities without clubbing. No joint tenderness, effusion, or edema noted. No calf tenderness. Negative Homans sign bilaterally. NEUROLOGICAL: Awake and alert. Cranial nerves II through XII intact. Motor and sensory grossly within normal limits. Five out of 5 muscle strength in all muscle groups. Normal speech. Laboratory Laboratory Tests Test 2/22/17 2/22/17 2/22/17 2/23/17 16:00 21:40 21:41 02:15 White Blood Count 6.4 6.7 Red Blood Count 4.22 3.80 Hemoglobin 12.0 10.7 Hematocrit 36.0 32.5 Mean Corpuscular Volume 85.4 85.5 Mean Corpuscular Hemoglobin 28.4 28.3 Mean Corpuscular Hemoglobin 33.3 33.1 Concent Red Cell Distribution Width 21.6 22.1 Platelet Count 110 104 Mean Platelet Volume 9.6 9.9 Neutrophils (%) (Auto) 77.9 76.3 Lymphocytes (%) (Auto) 10.5 11.8 Monocytes (%) (Auto) 8.9 9.5 Eosinophils (%) (Auto) 2.0 1.6 Basophils (%) (Auto) 0.7 0.8 Neutrophils # (Auto) 5.0 5.1 Lymphocytes # (Auto) 0.7 0.8 Monocytes # (Auto) 0.6 0.6 Eosinophils # (Auto) 0.1 0.1 Basophils # (Auto) 0.0 0.1 CBC Comment DIFF FINAL DIFF FINAL Differential Comment Prothrombin Time 24.3 Prothromb Time International 2.1 Ratio Activated Partial 32.5 Thromboplast Time Sodium Level 136 138 Potassium Level 4.1 4.5 Chloride Level 95 99 Carbon Dioxide Level 31.4 30.2 Anion Gap 10 9 Blood Urea Nitrogen 37 36 Creatinine 3.03 2.76 Estimat Glomerular Filtration 20 23 Rate Random Glucose 137 87 Calcium Level 9.5 9.0 Total Bilirubin 1.1 1.1 Aspartate Amino Transf 17 14 (AST/SGOT) Alanine Aminotransferase 20 16 (ALT/SGPT) Alkaline Phosphatase 80 66 Troponin I 0.02 0.02 0.02 B-Type Natriuretic Peptide 244 Total Protein 7.7 6.6 Albumin 3.8 3.6 Total Creatine Kinase 24 22 Urine Color YELLOW Urine Turbidity CLEAR Urine pH 6.5 Urine Specific [place] 1.007 Urine Protein NEG Urine Glucose (UA) NEG Urine Ketones NEG Urine Occult Blood NEG Urine Nitrite NEG Urine Bilirubin NEG Urine Urobilinogen LESS THAN 2.0 Urine Leukocyte Esterase NEG Urine WBC LESS THAN 1 Urine Hyaline Casts 4 Urine Mucus FEW Microscopic Urinalysis Comment CULT NOT INDICATED Uric Acid 11.7 Direct Bilirubin 0.5 Indirect Bilirubin 0.6 Result Diagram: 07/18/1621407/18/16214 Imaging Last Impressions Chest X-Ray 07/17/16 1611 Signed Impressions: Service Date/Time: Sunday, July 17, 2016 16:31 - CONCLUSION: No acute disease. Matt Brown MD Assessment and Plan Problem List: (1) Hypoxia (2) Cardiomyopathy (3) Obstructive sleep apnea (4) CKD (chronic kidney disease) stage 4, GFR 15-29 ml/min (5) COPD exacerbation (6) Interstitial fibrosis (7) Hx of CABG (8) CAD (coronary artery disease) (9) Low blood pressure Assessment and Plan Admit to Dr. Carter 75-year-old male with significant past medical history of this CHF, chronic kidney disease, interstitial fibrosis, COPD, CAD and stents. Patient presented to emergency room with worsening shortness of breath, possible CHF exacerbation versus hypoxia secondary to interstitial fibrosis. Hypoxia, pulm fibrosis exacerbation -Consult pulmonology for evaluation DuoNeb's as needed Continue with oxygen therapy to keep sats greater than 92%. -Solu-Medrol 40 mg IV twice a day CHF exacerbation, as echocardiogram August 2015, showed EF of 30-40%. Patient has AICD -Change Bumex to 1 mg by mouth twice a day -Echocardiogram has been ordered, follow up on result Chronic kidney disease stage IV, Monitor renal function closely Avoid nephrotoxic agents Coronary artery disease with recent stent, Continue to monitor Continue home medications Chronic A. fib, on Coumadin Continue with Coumadin Follow INR daily -Continue with carvedilol, amiodarone, digoxin -Continuous cardiac telemetry Hyperlipidemia Continue with home medications History of gout, stable Continue with home medications Home medications reviewed, initiated as indicated For DVT prophylaxis, continue Coumadin Patient's condition is guarded. Due to hypoxia, presence of cyanosis. Patient will be transferred to [facility] for closer monitoring, may need noninvasive ventilation Plan of care has been discussed with the patient, attending and registered nurse. Further management of the patient will be dependent on the hospital course This patient was seen by myself and Dr. Carter, this H&P is written on her behalf Physician Certification 2 Midnight Certification Type: Admission for Inpatient Services Order for Inpatient Services The services are ordered in accordance with Medicare regulations or non- Medicare payer requirements, as applicable. In the case of services not specified as inpatient-only, they are appropriately provided as inpatient services in accordance with the 2-midnight benchmark. Estimated LOS (days): 2 2 days is the estimated time the patient will need to remain in the hospital, assuming treatment plan goals are met and no additional complications. Post-Hospital Plan: Not yet determined Problem Qualifiers (1) Cardiomyopathy: Qualified Code: I42.9 - Cardiomyopathy, unspecified type (2) CAD (coronary artery disease): Qualified Code: I25.10 - Coronary artery disease involving alturas coronary artery of alturas heart without angina pectoris (3) Low blood pressure: Qualified Code: I95.9 - Hypotension, unspecified hypotension type Marlee Choi Jul 18, 2016 09:42
[2016-07-18] MEDS: BUMETANIDE 1 MG TAB PO SCH ×2 (13:12→17:40)
[2016-07-18] MEDS: DIAZEPAM 5 MG TAB PO PRN ×3 (13:12→23:37)
[2016-07-18] MEDS: WARFARIN SOD 2 MG TAB PO SCH (15:35)
--- NOTE | 2016-07-18 16:39 | EC ---
Study Study Date:07/18/2016 STUDY CONCLUSIONS SUMMARY - Left ventricle: The cavity size was normal. Systolic function was moderately reduced. The estimated ejection fraction was in the range of 35% to 40%. Diffuse hypokinesis. - Aortic valve: Right coronary, left coronary, and noncoronary cusp mobility was severely restricted. There was mild stenosis by mean gradient, but visually appears moderate to severe, possible psuedo- vs low flow low gradient . Valve area: 0.56cm^2(VTI). Valve area: 0.61cm^2 (Vmax). - Mitral valve: Mild regurgitation. - Left atrium: The atrium was moderately dilated. - Right ventricle: The cavity size was mildly dilated. - Tricuspid valve: Mild regurgitation. - Pulmonary arteries: PA peak pressure: 60mm Hg (S). - Pericardium, extracardiac: A small pericardial effusion vs fat pad was noted. No evidence of tamponade. If LV function is below 40, please consider prescribing an ACEI or ARB or document rationale for non-use. PROCEDURE DATA STUDY STATUS: Elective. Procedure: Transthoracic echocardiography. Image quality was good. Scanning was performed from the parasternal, apical, and subcostal acoustic windows. Study completion: The patient tolerated the procedure well. Transthoracic echocardiography. M-mode, complete 2D, complete spectral Doppler, and color Doppler. Patient status: Inpatient. CARDIAC ANATOMY LEFT VENTRICLE: The cavity size was normal. Systolic function was moderately reduced. The estimated ejection fraction was in the range of 35% to 40%. Diffuse hypokinesis. AORTIC VALVE: Trileaflet; moderately calcified leaflets. Right coronary, left coronary, and noncoronary cusp mobility was severely restricted. Doppler: There was mild stenosis by mean gradient, but visually appears moderate to severe, possible psuedo- vs low flow low gradient . No regurgitation. Valve area: 0.56cm^2(VTI). Valve area: 0.61cm^2 (Vmax). Mean gradient: 11mm Hg (S). Peak gradient: 19mm Hg (S). MITRAL VALVE: The valve appears to be grossly normal. Doppler: There was no evidence for stenosis. Mild regurgitation. LEFT ATRIUM: The atrium was moderately dilated. RIGHT VENTRICLE: The cavity size was mildly dilated. Pacer wire or catheter noted in right ventricle. PULMONIC VALVE: Not well visualized. TRICUSPID VALVE: The valve appears to be grossly normal. Doppler: There was no evidence for stenosis. Mild regurgitation. RIGHT ATRIUM: The atrium was normal in size. PERICARDIUM: A small pericardial effusion vs fat pad was noted. No evidence of tamponade. BASIC MEASUREMENTS ADULT Normal Left ventricle LV internal dimension, ED, chordal level, *53 mm 43-52 PLAX LV internal dimension, ES, chordal level, *44.4 mm 23-38 PLAX Fractional shortening, chordal level, PLAX *16 % >29 LV posterior wall thickness, ED 12.2 mm IVS/LVPW ratio, ED *1.39 <1.3 Ventricular septum Septal thickness, ED 16.9 mm Aortic valve Leaflet separation *8 mm 15-26 Right ventricle RV internal dimension, ED, PLAX 28.6 mm 19-38 BASIC MEASUREMENTS ADULT Normal Aortic valve Leaflet separation *8 mm 15-26 Aorta Root diameter, ED 29 mm 20-37 Left atrium Anterior-posterior dimension, ES *53 mm 19-40 LA/aortic root ratio 1.83 DOPPLER MEASUREMENTS ADULT Normal Main pulmonary artery Pressure, S *60 mm Hg =30 Aortic valve Peak velocity, S 216 cm/s Mean velocity, S 154 cm/s VTI, S 40.9 cm Mean gradient, S 11 mm Hg Peak gradient, S 19 mm Hg Valve area, VTI 0.56 cm^2 Valve area, Vmax 0.61 cm^2 Tricuspid valve Regurgitant peak velocity 352 cm/s Peak RV-RA gradient, S 50 mm Hg Maximal regurgitant velocity 352 cm/s Systemic veins Estimated CVP 10 mm Hg Right ventricle RV pressure, S *60 mm Hg <30 LEGEND: Mean values are shown as u=mean value. Asterisk (*) moss values outside specified normal range. Prepared and signed by German Segura [id number]
[2016-07-18] MEDS: methylPREDNISolone SOD SUCC 40 MG/1 ML VIAL IV PUSH SCH (23:21)
[2016-07-18] MEDS: POLYETHYLENE GLYCOL 17 GM PKG PO PRN (23:39)
[2016-07-19] VITALS (25 sets, daily range): BP systolic 96–110; BP diastolic 66–84; PULSE 80–86; RESP 16–22; TEMP 97.7–98.1; O2SAT 92–94
[2016-07-19 07:09] LABS: HEMATOCRIT 32.9 % (39.0-51.0); MEAN CELL VOLUME 85.6 FL (80.0-100.0); MEAN CORPUSCULAR HEMOGLOBIN 28.7 PG (27.0-34.0); MEAN CORPUSCULAR HGB CONC 33.5 % (32.0-36.0); PLATELET COUNT 102 TH/MM3 (150-450); RED BLOOD COUNT 3.84 MIL/MM3 (4.50-5.90); RED CELL DISTRIBUTION WIDTH 21.8 % (11.6-17.2); REVIEW FLAG FINAL; WHITE BLOOD COUNT 4.8 TH/MM3 (4.0-11.0)
[2016-07-19 07:34] LABS: INTERNATIONAL NORMALIZED RATIO 1.9 RATIO; PROTHROMBIN TIME - PATIENT 21.7 SEC (9.8-11.6)
[2016-07-19 07:52] LABS: BICARBONATE 27.9 MEQ/L (21.0-32.0); POTASSIUM 5.4 MEQ/L (3.5-5.1)
--- NOTE | 2016-07-19 08:02 | MB ---
cc: TOBY VILLAR DATE OF CONSULTATION: 07/18/2016 Mr. Levin is a 75-year-old white male with a history of coronary artery disease, coronary bypass, ischemic cardiomyopathy, chronic kidney disease, asbestosis, chronic atrial fibrillation and ICD placement. He presented with generalized weakness, exertional dyspnea and increased lower extremity edema. He saw Dr. Reyez and was supposed to take Bumex but his blood pressure was low and his did not give him his diuretic. He has not had any chest pain. He is feeling better after significant diuresis. PAST MEDICAL HISTORY 1. Coronary artery disease. 2. Coronary artery bypass x5 in 1990 and x5 in 1996. 3. ICD placement in 2012. 4. Ischemic cardiomyopathy with moderate left ventricular systolic function. 5. Chronic atrial fibrillation. 6. COPD on home oxygen. 7. Dyslipidemia. 8. Asbestosis. 9. Interstitial fibrosis. 10.Gout. 11.Hypertension. 12.Gastroesophageal reflux disease. MEDICATIONS 1. Coumadin. 2. Colchicine. 3. Digoxin. 4. Amiodarone. 5. Warfarin. 6. Plavix. 7. Isosorbide. 8. Metolazone. 9. Multivitamin. 10.Spiriva. 11.Protonix. 12.Atorvastatin. 13.Vitamin-B. 14.Vitamin-C. 15.Carvedilol. 16.Clonazepam. 17.Potassium. 18.Ropinirole. 19.Albumin. ALLERGIES 1. AMBIEN. 2. DECADRON. 3. HMG. 4. COENZYME. 5. REDUCTASE INHIBITORS. 6. HYDROCODONE. SOCIAL HISTORY The patient does not smoke. He does not drink alcohol. FAMILY HISTORY Positive for coronary artery disease in both parents. REVIEW OF SYSTEMS Otherwise negative. PHYSICAL EXAMINATION VITAL SIGNS: Blood pressure 89/66, pulse 80 and regular. HEENT: Negative. NECK: 2+ carotid upstrokes. No bruit. LUNGS: Clear. HEART: Regular, with no murmur or gallop. ABDOMEN: Soft. No bruit. EXTREMITIES: 2+ pitting edema up to the knees. 1+ distal pulses. NEUROLOGIC: Grossly nonfocal. LABORATORY Hemoglobin 10.7. Potassium 4.5, creatinine 3.03 and 2.76. Troponin 0.02 x3. BNP 244. AST and ALT normal. DIAGNOSIS 1. Respiratory insufficiency. 2. COPD. 3. Pulmonary fibrosis. 4. Acute exacerbation of chronic systolic congestive heart failure. 5. Ischemic cardiomyopathy with moderate left ventricular systolic function. 6. Coronary artery disease, history of redo coronary bypass. 7. Chronic kidney disease. DISPOSITION Mr. Levin will be monitored on telemetry. His symptoms are likely related to his COPD and pulmonary fibrosis since his BNP is relatively low. He has had exacerbation of his congestive heart failure and fluid overload related to his chronic kidney disease as well. He has responded to diuresis. His renal function has remained stable. I recommend to continue therapy for congestive heart failure including diuresis. I recommend pulmonary evaluation and management. We will closely monitor his renal function. I will follow him for cardiology during his hospitalization. MD ROMY Kimbrough/JUAN JOSÉ /9:34 AM /7:38 AM YONATHAN
[2016-07-19] MEDS: CARVEDILOL 12.5 MG TAB PO SCH ×2 (08:23→22:03)
[2016-07-19] MEDS: ATORVASTATIN 20 MG TAB PO SCH (08:23)
[2016-07-19] MEDS: VITAMIN B COMPLEX/VIT C TAB PO SCH (08:23)
[2016-07-19] MEDS: DIGOXIN 0.125 MG TAB PO SCH (08:23)
[2016-07-19] MEDS: COLCHICINE 0.6 MG TAB PO SCH (08:23)
[2016-07-19] MEDS: MAGNESIUM OXIDE 400 MG TAB PO SCH (08:23)
[2016-07-19] MEDS: SODIUM CHLORIDE 0.9% FLUSH 5 ML FLUSH FLUSH SCH ×2 (08:23→22:03)
[2016-07-19] MEDS: MULTIVITAMIN TAB PO SCH (08:23)
[2016-07-19] MEDS: methylPREDNISolone SOD SUCC 40 MG/1 ML VIAL IV PUSH SCH ×2 (08:23→22:02)
[2016-07-19] MEDS: BUMETANIDE 1 MG TAB PO SCH ×2 (08:24→17:37)
[2016-07-19] MEDS: POTASSIUM CHLORIDE 20 MEQ CONTROLLED RELEASE TAB PO SCH ×2 (08:24→21:00)
[2016-07-19] MEDS: AMIODARONE 200 MG TAB PO SCH (08:24)
[2016-07-19] MEDS: ISOSORBIDE MONONITRATE 60 MG TAB PO SCH (08:24)
[2016-07-19] MEDS: CLOPIDOGREL 75 MG TAB PO SCH (08:24)
[2016-07-19] MEDS: PANTOPRAZOLE SOD 40 MG DELAYED RELEASE TAB PO SCH (08:24)
[2016-07-19] MEDS: BUDESONIDE-FORMOTEROL 160/4.5 MCG INHALER INH SCH ×2 (08:25→21:00)
[2016-07-19] MEDS: TIOTROPIUM BROMIDE 18 MCG INH INH SCH (08:25)
[2016-07-19] MEDS ORDERED: SODIUM POLYSTYRENE SULFONATE SUSP 15 GM/60 ML CUP PO ONE (10:00)
--- NOTE | 2016-07-19 10:27 | HHI.PR ---
Subjective Interval History awake alert and oriented laying in bed still appears cyanotic able to talk in sentences, but admits to Shortness of breath on 4L NC wore CPAP last night no fever no other complaints no family at bedside Vitals/Results Intake & Output 07/18/16 07/18/16 07/19/16 15:00 23:00 07:00 Intake Total 460 ml 580 ml Output Total 650 ml 400 ml Balance -190 ml 180 ml Intake Oral 360 ml 480 ml IV Total 100 ml 100 ml Output Urine Total 650 ml 400 ml # Bowel Movements 1 Vital Signs Vital Signs Date Time Temp Pulse Resp B/P Pulse Ox O2 Delivery O2 Flow Rate FiO2 07/19/16 08:00 97.8 80 19 110/84 92 07/19/16 08:00 86 07/19/16 07:02 Nasal Cannula 4.00 07/19/16 06:00 82 07/19/16 05:00 82 07/19/16 04:00 80 07/19/16 04:00 97.7 83 21 103/75 94 07/19/16 02:00 80 07/19/16 01:00 82 07/19/16 00:00 82 07/19/16 00:00 98.0 86 18 99/67 92 07/18/16 23:00 82 07/18/16 22:00 80 07/18/16 21:00 80 07/18/16 20:00 97.8 80 20 83/69 92 07/18/16 20:00 82 07/18/16 19:00 92 Nasal Cannula 4.00 07/18/16 17:00 82 07/18/16 16:00 98.2 86 16 92/68 92 07/18/16 16:00 86 07/18/16 15:19 18 07/18/16 15:00 82 07/18/16 14:00 84 07/18/16 13:25 98.1 81 16 109/84 99 07/18/16 13:25 85 07/18/16 13:00 86 07/18/16 12:00 96.0 83 20 93/64 97 CBC/BMP: 07/19/16 0622 07/19/16 0622 Lab Results Laboratory Tests Test 07/19/16 06:22 White Blood Count 4.8 TH/MM3 Red Blood Count 3.84 MIL/MM3 Hemoglobin 11.0 GM/DL Hematocrit 32.9 % Mean Corpuscular Volume 85.6 FL Mean Corpuscular Hemoglobin 28.7 PG Mean Corpuscular Hemoglobin 33.5 % Concent Red Cell Distribution Width 21.8 % Platelet Count 102 TH/MM3 Mean Platelet Volume 10.0 FL Prothrombin Time 21.7 SEC Prothromb Time International 1.9 RATIO Ratio Sodium Level 135 MEQ/L Potassium Level 5.4 MEQ/L Chloride Level 98 MEQ/L Carbon Dioxide Level 27.9 MEQ/L Anion Gap 9 MEQ/L Blood Urea Nitrogen 40 MG/DL Creatinine 2.69 MG/DL Estimat Glomerular Filtration 23 ML/MIN Rate Random Glucose 134 MG/DL Calcium Level 9.4 MG/DL Physical Exam General General Appearance: Well Nourished Appearance Remarks auricular cyanosis bharat oral cyanosis Eyes Eye Exam: Pupils Equal, Pupils Reactive Throat Throat Exam: Oral Mucosa [place] & Moist Neck Neck Exam: Neck Supple, Trachea Midline Pulmonary Resp Exam: Clear Bilaterally, Breath Sounds Equal Cardiology CV Exam: Regular, Normal Sinus Rhythm Gastrointestinal/Abdomen GI Exam: Soft, Non-Tender, Bowel Sounds Present Musculoskeletal MS Exam: Joints Intact, Normal Gait, Normal Tone Integumentary Skin Exam: Clear, Warm, Dry, Intact Extremeties Extremities Exam: No Edema Neurologic Neuro Exam: Alert, Awake, Oriented, Speech Clear, Moving All Extremities Psychiatric Psych Exam: Appropriate Responses Assessment/Plan Assessment/Plan Assessment and Plan Assessment and Plan Problem List: (1) Hypoxia (2) Cardiomyopathy (3) Obstructive sleep apnea (4) CKD (chronic kidney disease) stage 4, GFR 15-29 ml/min (5) COPD exacerbation (6) Interstitial fibrosis (7) Hx of CABG (8) CAD (coronary artery disease) (9) Low blood pressure Assessment and Plan Admit to Dr. Carter 75-year-old male with significant past medical history of this CHF, chronic kidney disease, interstitial fibrosis, COPD, CAD and stents. Patient presented to emergency room with worsening shortness of breath, possible CHF exacerbation versus hypoxia secondary to interstitial fibrosis. Hypoxia, pulm fibrosis exacerbation -Consult pulmonology for evaluation DuoNeb's as needed Continue with oxygen therapy to keep sats greater than 92%. -Solu-Medrol 40 mg IV twice a day _CT chest ordered CHF exacerbation, as echocardiogram August 2015, showed EF of 30-40%. Patient has AICD -Change Bumex to 1 mg by mouth twice a day -Echocardiogram has been ordered, follow up on result -Appreciate Cardiology input, CHF exacerbation, unlikely per Cardiology Chronic kidney disease stage IV, Monitor renal function closely Avoid nephrotoxic agents Coronary artery disease with recent stent, Continue to monitor Continue home medications Chronic A. fib, on Coumadin Continue with Coumadin Follow INR daily -Continue with carvedilol, amiodarone, digoxin -Continuous cardiac telemetry Hyperlipidemia Continue with home medications History of gout, stable Continue with home medications Home medications reviewed, initiated as indicated For DVT prophylaxis, continue Coumadin discussed with patient Namrata Carter MD Jul 19, 2016 10:27
--- NOTE | 2016-07-19 11:49 | PD.CARD.PN ---
Objective Medications Atyp lower ant CP, mild SOB Vital Signs / I&O Vital Signs Date Time Temp Pulse Resp B/P Pulse Ox O2 Delivery O2 Flow Rate FiO2 07/19/16 08:00 97.8 80 19 110/84 92 07/19/16 08:00 86 07/19/16 07:02 Nasal Cannula 4.00 07/19/16 06:00 82 07/19/16 05:00 82 07/19/16 04:00 80 07/19/16 04:00 97.7 83 21 103/75 94 07/19/16 02:00 80 07/19/16 01:00 82 07/19/16 00:00 82 07/19/16 00:00 98.0 86 18 99/67 92 07/18/16 23:00 82 07/18/16 22:00 80 07/18/16 21:00 80 07/18/16 20:00 97.8 80 20 83/69 92 07/18/16 20:00 82 07/18/16 19:00 92 Nasal Cannula 4.00 07/18/16 17:00 82 07/18/16 16:00 98.2 86 16 92/68 92 07/18/16 16:00 86 07/18/16 15:19 18 07/18/16 15:00 82 07/18/16 14:00 84 07/18/16 13:25 98.1 81 16 109/84 99 07/18/16 13:25 85 07/18/16 13:00 86 07/18/16 12:00 96.0 83 20 93/64 97 I/O 07/18/16 07/18/16 07/18/16 07/19/16 07/19/16 07/19/16 07:00 15:00 23:00 07:00 15:00 23:00 Intake Total 240 ml 460 ml 580 ml Output Total 300 ml 650 ml 400 ml Balance -60 ml -190 ml 180 ml Intake Oral 240 ml 360 ml 480 ml IV Total 100 ml 100 ml Output Urine Total 300 ml 650 ml 400 ml # Voids 1 # Bowel Movements 0 1 Physical Exam GENERAL: In NAD. SKIN: Warm and dry. HEAD: Normocephalic. EYES: No scleral icterus. No injection or drainage. NECK: Supple, trachea midline. No JVD or lymphadenopathy. CARDIOVASCULAR: Regular rate and rhythm without murmurs, gallops, or rubs. RESPIRATORY: Breath sounds equal bilaterally. No accessory muscle use. Few rhonchi. GASTROINTESTINAL: Abdomen soft, non-tender, nondistended. MUSCULOSKELETAL: No cyanosis, trace edema. Laboratory Laboratory Tests Test 07/19/16 06:22 White Blood Count 4.8 TH/MM3 Red Blood Count 3.84 MIL/MM3 Hemoglobin 11.0 GM/DL Hematocrit 32.9 % Mean Corpuscular Volume 85.6 FL Mean Corpuscular Hemoglobin 28.7 PG Mean Corpuscular Hemoglobin 33.5 % Concent Red Cell Distribution Width 21.8 % Platelet Count 102 TH/MM3 Mean Platelet Volume 10.0 FL Prothrombin Time 21.7 SEC Prothromb Time International 1.9 RATIO Ratio Sodium Level 135 MEQ/L Potassium Level 5.4 MEQ/L Chloride Level 98 MEQ/L Carbon Dioxide Level 27.9 MEQ/L Anion Gap 9 MEQ/L Blood Urea Nitrogen 40 MG/DL Creatinine 2.69 MG/DL Estimat Glomerular Filtration 23 ML/MIN Rate Random Glucose 134 MG/DL Calcium Level 9.4 MG/DL Imaging Last Impressions Chest X-Ray 07/17/16 1611 Signed Impressions: Service Date/Time: Sunday, July 17, 2016 16:31 - CONCLUSION: No acute disease. Matt Brown MD Assessment and Plan Problem List: (1) COPD exacerbation (2) Interstitial fibrosis (3) Hx of CABG (4) Cardiomyopathy (5) CAD (coronary artery disease) (6) CKD (chronic kidney disease) stage 4, GFR 15-29 ml/min (7) Hypertension (8) Systolic CHF, acute on chronic Assessment and Plan Continue tx for COPD exac and pulmonary fibrosis. Continue diuresis for CHF/ fluid overload. Closely monitor renal fx. Increase activity. Problem Qualifiers (1) Cardiomyopathy: Qualified Code: I42.9 - Cardiomyopathy, unspecified type (2) CAD (coronary artery disease): Qualified Code: I25.10 - Coronary artery disease involving [place] coronary artery of [place] heart without angina pectoris (3) Hypertension: Qualified Code: I10 - Essential hypertension Nathan Tiwari MD Jul 19, 2016 11:49
--- NOTE | 2016-07-19 12:46 | MB ---
cc: DOLORES HAIDER MD, ARJUN D. MD DATE OF CONSULTATION: 07/19/2016 REASON FOR CONSULTATION Pulmonary management. HISTORY OF PRESENT ILLNESS Mr. Levin is a pleasant 75-year-old male from [place], [place]. He has a history of asbestosis, pulmonary fibrosis, coronary artery disease and cardiomyopathy. He has sleep apnea and he uses oxygen all the time, 4 liter nasal cannula. He can barely walk 20 feet and gets short of breath. Over the last one month or so he has been getting more short of breath. He also gained some weight. He did not have any fever or chills. No chest pain. No nausea or vomiting. Because of worsening of his symptoms he came to the hospital. He had a workup done. His chest x-ray shows no acute disease. His WBC count is 4.8, hemoglobin 11,000, hematocrit 32.9, MCV 85, platelet count 102. Sodium 135, potassium 5.4, chloride 98, CO2 27, BUN 40, creatinine 2.69. BNP 244. His INR is 1.9. PAST MEDICAL HISTORY 1. COPD. 2. Pulmonary fibrosis. 3. Asbestosis. 4. Obstructive sleep apnea. 5. Coronary artery disease. 6. Cardiomyopathy. 7. AICD placement. 8. Chronic atrial fibrillation. 9. History of gout. 10.History of angioplasty and multiple cardiac catheterizations. 11.CABG done twice. 12.Defibrillator placement. MEDICATIONS He is currently takin. Coumadin 1 mg. 2. Colchicine 0.6 mg. 3. Digoxin 0.125 mg a day. 4. Albuterol Nebs. 5. Solu-Medrol 40 mg q.12h. 6. Bumex 1 mg twice a day. 7. Plavix 75 mg a day. 8. Imdur 60 mg a day. 9. Metolazone 2.5 mg twice a week. 10.Spiriva once a day. 11.Protonix 40 mg a day. 12.Lipitor 20 mg a day. 13.Symbicort twice a day. 14.Coreg 12.25 mg twice a day. 15.Klonopin 2 mg at bedtime. 16.Requip 3 mg at bedtime. ALLERGIES 1. AMBIEN. 2. DECADRON. 3. HMG-COA REDUCTASE INHIBITORS. 4. HYDROCODONE. SOCIAL HISTORY No history of smoking. No alcohol abuse. 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 FAMILY HISTORY He is . He has one child. REVIEW OF SYSTEMS He walks only 20-30 feet, gets short of breath, uses CPAP every night. Weight is stable. He did gain some weight, which he has lost after diuresis. No seizure, stroke or epilepsy. PHYSICAL EXAMINATION GENERAL: A well-developed, well-nourished male with mild shortness of breath. VITAL SIGNS: Blood pressure 110/84, heart rate 86, respirations 20, temperature 97.8, saturation 92% on four liter nasal cannula. HEENT: Unremarkable. NECK: Supple. JVP not raised. CHEST: Scattered rales. CARDIOVASCULAR: S1, S2, normal. ABDOMEN: Benign. EXTREMITIES: 1+ pedal edema. IMPRESSION 1. Pulmonary fibrosis. 2. Asbestosis. 3. COPD. 4. Obstructive sleep apnea. 5. Hypoxia. 6. Congestive heart failure. 7. Defibrillator placement. 8. Coronary artery disease status post CABG. PLAN He will use CPAP at nighttime. Oxygen at four liter nasal cannula. Keep the saturation greater than 92%. The patient is being diuresed. Monitor electrolytes. Continue Solu-Medrol, Symbicort twice a day, Spiriva once a day. Further treatment will depend on the course in the hospital. Thank you Dr. Haider for this consult. MD MARYJO Costa/JUAN JOSÉ /11:55 AM /12:24 PM [facility]
[2016-07-19] MEDS: WARFARIN SOD 1 MG TAB PO SCH (16:02)
--- NOTE | 2016-07-19 16:28 | EKG ---
Date Performed: 07/18/2016 Time Performed: 14:29:32 PTAGE: 75 years EKG: A-sensed ventricular-paced rhythm --- Suggests dextrocardia --- Abnormal ECG PREVIOUS TRACING : 08/28/2015 15.28 Since previous tracing, no significant change noted DOCTOR: Le Doty Interpretating Date/Time 07/19/2016 16:27:04
--- NOTE | 2016-07-19 17:41 | RADRPT ---
EXAM DATE/TIME: 07/19/2016 16:53 [facility] COMPARISON: No previous studies available for comparison. INDICATIONS : Short of breath. RADIATION DOSE: 9.59 CTDIvol (mGy) MEDICAL HISTORY : Cardiovascular disease. Chronic obstructive pulmonary disease. SURGICAL HISTORY : Cholecystectomy. ENCOUNTER: Initial ACUITY: 1 day PAIN SCALE: 5/10 LOCATION: chest TECHNIQUE: Volumetric scanning of the chest was performed. Using automated exposure control and adjustment of t he mA and/or kV according to patient size, radiation dose was kept as low as reasonably achievable to obtain optimal diagnostic quality images. FINDINGS: There is a moderate right pleural effusion and mild lung base atelectasis. There is no evidence of uriarte spicious mass or nodule. Contralateral left lung is clear. The heart is enlarged. Pacemaker is present. Coronary artery calcifications and other atherosclerotic calcifications are present. There is no evidence of mediastinal mass or adenopathy. There is no evidence of axillary adenopathy or chest wall obstruction. CONCLUSION: Right pleural effusion. Paul Thurman MD on July 19, 2016 at 17:37 Board Certified Radiologist. This report was verified electronically.
[2016-07-19] MEDS: clonazePAM 1 MG TAB PO SCH (22:03)
[2016-07-19] MEDS: DIAZEPAM 5 MG TAB PO PRN (23:38)
[2016-07-20] VITALS (12 sets, daily range): BP systolic 93–111; BP diastolic 67–77; PULSE 81–86; RESP 16–20; TEMP 97.4–98; O2SAT 92–99
[2016-07-20 05:24] LABS: AUTOMATED NEUTROPHIL # 6.5 TH/MM3 (1.8-7.7); BASOPHIL % 0.6 % (0.0-2.0); EOSINOPHIL # 0.1 TH/MM3 (0-0.4); EOSINOPHIL % 0.9 % (0.0-4.0); HEMATOCRIT 31.4 % (39.0-51.0); HEMO FLAGS DIFF FINAL; LYMPH % 4.1 % (9.0-44.0); LYMPHOCYTE # 0.3 TH/MM3 (1.0-4.8); MEAN CELL VOLUME 85.7 FL (80.0-100.0); MEAN CORPUSCULAR HEMOGLOBIN 29.4 PG (27.0-34.0); MEAN CORPUSCULAR HGB CONC 34.3 % (32.0-36.0); MONO % 3.5 % (0.0-8.0); NEUT % 90.9 % (16.0-70.0); PLATELET COUNT 105 TH/MM3 (150-450); RED BLOOD COUNT 3.66 MIL/MM3 (4.50-5.90); RED CELL DISTRIBUTION WIDTH 21.7 % (11.6-17.2); WHITE BLOOD COUNT 7.2 TH/MM3 (4.0-11.0)
[2016-07-20 05:49] LABS: BICARBONATE 30.1 MEQ/L (21.0-32.0); POTASSIUM 4.4 MEQ/L (3.5-5.1)
[2016-07-20 07:23] LABS: PROTHROMBIN TIME - PATIENT 22.8 SEC (9.8-11.6)
[2016-07-20] MEDS: SODIUM CHLORIDE 0.9% FLUSH 5 ML FLUSH FLUSH SCH ×2 (08:43→21:16)
[2016-07-20] MEDS: TIOTROPIUM BROMIDE 18 MCG INH INH SCH (08:44)
[2016-07-20] MEDS: ISOSORBIDE MONONITRATE 60 MG TAB PO SCH (08:44)
[2016-07-20] MEDS: BUMETANIDE 1 MG TAB PO SCH ×2 (08:44→18:00)
[2016-07-20] MEDS: MAGNESIUM OXIDE 400 MG TAB PO SCH (08:45)
[2016-07-20] MEDS: PANTOPRAZOLE SOD 40 MG DELAYED RELEASE TAB PO SCH (08:45)
[2016-07-20] MEDS: MULTIVITAMIN TAB PO SCH (08:47)
[2016-07-20] MEDS: ATORVASTATIN 20 MG TAB PO SCH (08:48)
[2016-07-20] MEDS: VITAMIN B COMPLEX/VIT C TAB PO SCH (08:48)
[2016-07-20] MEDS: CLOPIDOGREL 75 MG TAB PO SCH (08:48)
[2016-07-20] MEDS: CARVEDILOL 12.5 MG TAB PO SCH ×2 (08:48→21:00)
[2016-07-20] MEDS: methylPREDNISolone SOD SUCC 40 MG/1 ML VIAL IV PUSH SCH ×2 (08:49→21:16)
[2016-07-20] MEDS: POTASSIUM CHLORIDE 20 MEQ CONTROLLED RELEASE TAB PO SCH ×3 (08:49→20:59)
[2016-07-20] MEDS: BUDESONIDE-FORMOTEROL 160/4.5 MCG INHALER INH SCH ×2 (08:50→20:55)
--- NOTE | 2016-07-20 11:09 | HHI.PR ---
Subjective Interval History awake alert and oreinted laying in bed on 4 L N[place] appears comfortable less cyanotic today no other complaints no family at bed side Vitals/Results Intake & Output 07/19/16 07/19/16 07/20/16 15:00 23:00 07:00 Intake Total 540 ml Output Total 1150 ml 250 ml Balance -610 ml -250 ml Intake Oral 540 ml Output Urine Total 1150 ml 250 ml # Bowel Movements 0 Vital Signs Vital Signs Date Time Temp Pulse Resp B/P Pulse Ox O2 Delivery O2 Flow Rate FiO2 07/20/16 08:00 Nasal Cannula 4.00 07/20/16 08:00 97.4 84 18 111/76 93 07/20/16 08:00 84 07/20/16 05:07 99 BiPAP 4.00 07/20/16 05:00 84 07/20/16 04:20 98.0 81 16 104/77 93 07/20/16 04:00 86 07/20/16 03:00 84 07/20/16 02:00 84 07/20/16 01:09 94 Nasal Cannula 4.00 07/20/16 01:00 82 07/20/16 00:00 82 07/19/16 23:30 97.7 80 16 99/68 93 07/19/16 23:00 80 07/19/16 22:00 80 07/19/16 21:00 80 07/19/16 20:00 80 07/19/16 19:50 97.8 82 16 104/69 94 07/19/16 19:00 80 07/19/16 18:00 86 07/19/16 17:00 85 07/19/16 16:00 86 07/19/16 16:00 98.1 83 16 96/66 94 07/19/16 15:00 82 07/19/16 14:00 82 07/19/16 13:00 82 07/19/16 12:00 83 07/19/16 12:00 97.9 82 22 100/71 92 CBC/BMP: 07/20/16 0422 07/20/16 0422 Lab Results Laboratory Tests Test 07/20/16 04:22 White Blood Count 7.2 TH/MM3 Red Blood Count 3.66 MIL/MM3 Hemoglobin 10.8 GM/DL Hematocrit 31.4 % Mean Corpuscular Volume 85.7 FL Mean Corpuscular Hemoglobin 29.4 PG Mean Corpuscular Hemoglobin 34.3 % Concent Red Cell Distribution Width 21.7 % Platelet Count 105 TH/MM3 Mean Platelet Volume 10.0 FL Neutrophils (%) (Auto) 90.9 % Lymphocytes (%) (Auto) 4.1 % Monocytes (%) (Auto) 3.5 % Eosinophils (%) (Auto) 0.9 % Basophils (%) (Auto) 0.6 % Neutrophils # (Auto) 6.5 TH/MM3 Lymphocytes # (Auto) 0.3 TH/MM3 Monocytes # (Auto) 0.3 TH/MM3 Eosinophils # (Auto) 0.1 TH/MM3 Basophils # (Auto) 0.0 TH/MM3 CBC Comment DIFF FINAL Differential Comment Prothrombin Time 22.8 SEC Prothromb Time International 2.0 RATIO Ratio Sodium Level 139 MEQ/L Potassium Level 4.4 MEQ/L Chloride Level 99 MEQ/L Carbon Dioxide Level 30.1 MEQ/L Anion Gap 10 MEQ/L Blood Urea Nitrogen 43 MG/DL Creatinine 2.52 MG/DL Estimat Glomerular Filtration 25 ML/MIN Rate Random Glucose 122 MG/DL Calcium Level 9.3 MG/DL Physical Exam General General Appearance: Well Nourished Appearance Remarks facial cyanosis improving Eyes Eye Exam: Pupils Equal, Pupils Reactive Throat Throat Exam: Oral Mucosa [place] & Moist Neck Neck Exam: Neck Supple, Trachea Midline Pulmonary Resp Exam: Clear Bilaterally, Breath Sounds Equal Cardiology CV Exam: Regular, Normal Sinus Rhythm Gastrointestinal/Abdomen GI Exam: Soft, Non-Tender, Bowel Sounds Present Musculoskeletal MS Exam: Joints Intact, Normal Gait, Normal Tone Integumentary Skin Exam: Clear, Warm, Dry, Intact Extremeties Extremities Exam: No Edema Neurologic Neuro Exam: Alert, Awake, Oriented, Speech Clear, Moving All Extremities Psychiatric Psych Exam: Appropriate Responses Assessment/Plan Assessment/Plan Assessment and Plan Assessment and Plan Problem List: (1) Hypoxia (2) Cardiomyopathy (3) Obstructive sleep apnea (4) CKD (chronic kidney disease) stage 4, GFR 15-29 ml/min (5) COPD exacerbation (6) Interstitial fibrosis (7) Hx of CABG (8) CAD (coronary artery disease) (9) Low blood pressure Assessment and Plan 75-year-old male with significant past medical history of this CHF, chronic kidney disease, interstitial fibrosis, COPD, CAD and stents. Patient presented to emergency room with worsening shortness of breath, possible CHF exacerbation versus hypoxia secondary to interstitial fibrosis. Hypoxia, pulm fibrosis exacerbation Pulmonary following DuoNeb's as needed Continue with oxygen therapy to keep sats greater than 92%. -Solu-Medrol 40 mg IV twice a day _CT chest noted CHF exacerbation, as echocardiogram August 2015, showed EF of 30-40%. Patient has AICD -Change Bumex to 1 mg by mouth twice a day -Echocardiogram EF 35-40%, diffuse hypokinesis -Appreciate Cardiology input, CHF exacerbation, unlikely per Cardiology Chronic kidney disease stage IV, Monitor renal function closely Avoid nephrotoxic agents Coronary artery disease with recent stent, Continue to monitor Continue home medications Chronic A. fib, on Coumadin Continue with Coumadin Follow INR daily -Continue with carvedilol, amiodarone, digoxin -Continuous cardiac telemetry Hyperlipidemia Continue with home medications History of gout, stable Continue with home medications Home medications reviewed, initiated as indicated For DVT prophylaxis, continue Coumadin discussed with patient continue current care slowly improving Namrata Carter MD Jul 20, 2016 11:09
[2016-07-20] MEDS: WARFARIN SOD 2 MG TAB PO SCH (16:00)
[2016-07-20] MEDS: clonazePAM 1 MG TAB PO SCH (20:59)
[2016-07-21] VITALS (18 sets, daily range): BP systolic 88–109; BP diastolic 65–86; PULSE 78–96; RESP 16–20; TEMP 97.7–98.2; O2SAT 93–97
[2016-07-21] MEDS: DIAZEPAM 5 MG TAB PO PRN (00:01)
[2016-07-21 04:39] LABS: AUTOMATED NEUTROPHIL # 8.7 TH/MM3 (1.8-7.7); BASOPHIL % 0.2 % (0.0-2.0); HEMATOCRIT 34.6 % (39.0-51.0); HEMO FLAGS DIFF FINAL; LYMPHOCYTE # 0.4 TH/MM3 (1.0-4.8); MEAN CELL VOLUME 86.6 FL (80.0-100.0); MEAN CORPUSCULAR HEMOGLOBIN 28.2 PG (27.0-34.0); MEAN CORPUSCULAR HGB CONC 32.5 % (32.0-36.0); MONO % 2.9 % (0.0-8.0); NEUT % 92.9 % (16.0-70.0); PLATELET COUNT 118 TH/MM3 (150-450); RED CELL DISTRIBUTION WIDTH 21.9 % (11.6-17.2); WHITE BLOOD COUNT 9.3 TH/MM3 (4.0-11.0)
[2016-07-21 04:51] LABS: INTERNATIONAL NORMALIZED RATIO 2.1 RATIO; PROTHROMBIN TIME - PATIENT 23.6 SEC (9.8-11.6)
[2016-07-21 04:59] LABS: BICARBONATE 31.1 MEQ/L (21.0-32.0); POTASSIUM 4.9 MEQ/L (3.5-5.1)
[2016-07-21] MEDS: VITAMIN B COMPLEX/VIT C TAB PO SCH (08:30)
[2016-07-21] MEDS: PANTOPRAZOLE SOD 40 MG DELAYED RELEASE TAB PO SCH (08:31)
[2016-07-21] MEDS: MAGNESIUM OXIDE 400 MG TAB PO SCH (08:31)
[2016-07-21] MEDS: ISOSORBIDE MONONITRATE 60 MG TAB PO SCH (08:31)
[2016-07-21] MEDS: CARVEDILOL 12.5 MG TAB PO SCH (08:31)
[2016-07-21] MEDS: BUMETANIDE 1 MG TAB PO SCH ×2 (08:31→17:53)
[2016-07-21] MEDS: ATORVASTATIN 20 MG TAB PO SCH (08:31)
[2016-07-21] MEDS: MULTIVITAMIN TAB PO SCH (08:31)
[2016-07-21] MEDS: CLOPIDOGREL 75 MG TAB PO SCH (08:31)
[2016-07-21] MEDS: TIOTROPIUM BROMIDE 18 MCG INH INH SCH (08:31)
[2016-07-21] MEDS: BUDESONIDE-FORMOTEROL 160/4.5 MCG INHALER INH SCH ×2 (08:32→21:00)
[2016-07-21] MEDS: SODIUM CHLORIDE 0.9% FLUSH 5 ML FLUSH FLUSH SCH (08:32)
[2016-07-21] MEDS: methylPREDNISolone SOD SUCC 40 MG/1 ML VIAL IV PUSH SCH ×2 (08:32→21:09)
[2016-07-21] MEDS: METOLAZONE 2.5 MG TAB PO SCH (08:33)
[2016-07-21] MEDS: POTASSIUM CHLORIDE 20 MEQ CONTROLLED RELEASE TAB PO SCH ×2 (08:36→21:00)
[2016-07-21] MEDS: POLYETHYLENE GLYCOL 17 GM PKG PO PRN (09:50)
--- NOTE | 2016-07-21 12:21 | HHI.PR ---
Subjective Interval History patient sleepy today, arousable less cyanotic appearing remains on 4l NC durign day , and on CPAP at night low BP today no family at bed side Vitals/Results Intake & Output 07/20/16 07/20/16 07/21/16 15:00 23:00 07:00 Intake Total 720 ml Balance 720 ml Intake Oral 720 ml # Voids 4 # Bowel Movements 0 Vital Signs Vital Signs Date Time Temp Pulse Resp B/P Pulse Ox O2 Delivery O2 Flow Rate FiO2 07/21/16 10:55 89 07/21/16 09:00 96 07/21/16 08:00 89 07/21/16 08:00 97.7 86 20 99/86 96 07/21/16 07:25 96 Nasal Cannula 4.00 07/21/16 04:00 98.0 78 16 88/65 93 07/21/16 04:00 94 Nasal Cannula 4.00 07/21/16 00:40 98.0 83 16 90/70 93 07/20/16 20:01 98.0 82 16 93/67 93 07/20/16 16:20 84 07/20/16 16:20 97.8 84 20 96/74 92 07/20/16 12:20 81 07/20/16 12:20 97.6 86 20 94/70 92 CBC/BMP: 07/21/16 0426 07/21/16 0416 Lab Results Laboratory Tests Test 07/21/16 07/21/16 04:16 04:26 Prothrombin Time 23.6 SEC Prothromb Time International 2.1 RATIO Ratio Sodium Level 139 MEQ/L Potassium Level 4.9 MEQ/L Chloride Level 98 MEQ/L Carbon Dioxide Level 31.1 MEQ/L Anion Gap 10 MEQ/L Blood Urea Nitrogen 51 MG/DL Creatinine 2.38 MG/DL Estimat Glomerular Filtration 27 ML/MIN Rate Random Glucose 114 MG/DL Calcium Level 9.0 MG/DL White Blood Count 9.3 TH/MM3 Red Blood Count 4.00 MIL/MM3 Hemoglobin 11.3 GM/DL Hematocrit 34.6 % Mean Corpuscular Volume 86.6 FL Mean Corpuscular Hemoglobin 28.2 PG Mean Corpuscular Hemoglobin 32.5 % Concent Red Cell Distribution Width 21.9 % Platelet Count 118 TH/MM3 Mean Platelet Volume 9.7 FL Neutrophils (%) (Auto) 92.9 % Lymphocytes (%) (Auto) 4.0 % Monocytes (%) (Auto) 2.9 % Eosinophils (%) (Auto) 0.0 % Basophils (%) (Auto) 0.2 % Neutrophils # (Auto) 8.7 TH/MM3 Lymphocytes # (Auto) 0.4 TH/MM3 Monocytes # (Auto) 0.3 TH/MM3 Eosinophils # (Auto) 0.0 TH/MM3 Basophils # (Auto) 0.0 TH/MM3 CBC Comment DIFF FINAL Differential Comment Physical Exam General General Appearance: Well Nourished Appearance Remarks facial cyanosis improving Eyes Eye Exam: Pupils Equal, Pupils Reactive Throat Throat Exam: Oral Mucosa [place] & Moist Neck Neck Exam: Neck Supple, Trachea Midline Pulmonary Resp Exam: Clear Bilaterally, Breath Sounds Equal Cardiology CV Exam: Regular, Normal Sinus Rhythm Gastrointestinal/Abdomen GI Exam: Soft, Non-Tender, Bowel Sounds Present Musculoskeletal MS Exam: Joints Intact, Normal Gait, Normal Tone Integumentary Skin Exam: Clear, Warm, Dry, Intact Extremeties Extremities Exam: No Edema Neurologic Neuro Exam: Alert, Awake, Oriented, Speech Clear, Moving All Extremities Psychiatric Psych Exam: Appropriate Responses Assessment/Plan Assessment/Plan Assessment and Plan Assessment and Plan Problem List: (1) Hypoxia (2) Cardiomyopathy (3) Obstructive sleep apnea (4) CKD (chronic kidney disease) stage 4, GFR 15-29 ml/min (5) COPD exacerbation (6) Interstitial fibrosis (7) Hx of CABG (8) CAD (coronary artery disease) (9) Low blood pressure Assessment and Plan 75-year-old male with significant past medical history of this CHF, chronic kidney disease, interstitial fibrosis, COPD, CAD and stents. Patient presented to emergency room with worsening shortness of breath, possible CHF exacerbation versus hypoxia secondary to interstitial fibrosis. Hypoxia, pulm fibrosis exacerbation Pulmonary following DuoNeb's as needed Continue with oxygen therapy to keep sats greater than 92%. -Solu-Medrol 40 mg IV twice a day, likely switch to po in am _CT chest noted CHF exacerbation, as echocardiogram August 2015, showed EF of 30-40%. Patient has AICD -Change Bumex to 1 mg by mouth twice a day -Echocardiogram EF 35-40%, diffuse hypokinesis -Appreciate Cardiology input, CHF exacerbation, unlikely per Cardiology Chronic kidney disease stage IV, Monitor renal function closely Avoid nephrotoxic agents Coronary artery disease with recent stent, Continue to monitor Continue home medications - low BP, dose of Coreg decreased to 6.25 mg po bid Chronic A. fib, on Coumadin Continue with Coumadin Follow INR daily -Continue with carvedilol, amiodarone, digoxin -Continuous cardiac telemetry Hyperlipidemia Continue with home medications History of gout, stable Continue with home medications Home medications reviewed, initiated as indicated For DVT prophylaxis, continue Coumadin discussed with patient continue current care slowly improving Namrata Carter MD Jul 21, 2016 12:20
[2016-07-21] MEDS: WARFARIN SOD 2 MG TAB PO SCH (16:00)
[2016-07-21] MEDS ORDERED: CARVEDILOL 6.25 MG TAB PO SCH (21:00)
[2016-07-21] MEDS: clonazePAM 1 MG TAB PO SCH (21:05)
[2016-07-22] VITALS (22 sets, daily range): BP systolic 94–110; BP diastolic 65–74; PULSE 80–96; RESP 18–20; TEMP 97–98; O2SAT 92–98
[2016-07-22] MEDS: DIAZEPAM 5 MG TAB PO PRN ×2 (00:13→22:33)
[2016-07-22 06:15] LABS: INTERNATIONAL NORMALIZED RATIO 2.2 RATIO; PROTHROMBIN TIME - PATIENT 24.9 SEC (9.8-11.6)
[2016-07-22] MEDS: SODIUM CHLORIDE 0.9% FLUSH 5 ML FLUSH FLUSH SCH (09:00)
[2016-07-22] MEDS: BUDESONIDE-FORMOTEROL 160/4.5 MCG INHALER INH SCH ×2 (09:00→21:00)
[2016-07-22] MEDS: TIOTROPIUM BROMIDE 18 MCG INH INH SCH (09:00)
[2016-07-22] MEDS: CLOPIDOGREL 75 MG TAB PO SCH (09:00)
[2016-07-22] MEDS: MULTIVITAMIN TAB PO SCH (09:36)
[2016-07-22] MEDS: PANTOPRAZOLE SOD 40 MG DELAYED RELEASE TAB PO SCH (09:36)
[2016-07-22] MEDS: WARFARIN SOD 1 MG TAB PO SCH (09:37)
[2016-07-22] MEDS: ISOSORBIDE MONONITRATE 60 MG TAB PO SCH (09:37)
[2016-07-22] MEDS: COLCHICINE 0.6 MG TAB PO SCH (09:37)
[2016-07-22] MEDS: VITAMIN B COMPLEX/VIT C TAB PO SCH (09:38)
[2016-07-22] MEDS: ATORVASTATIN 20 MG TAB PO SCH (09:38)
[2016-07-22] MEDS: AMIODARONE 200 MG TAB PO SCH (09:38)
[2016-07-22] MEDS: MAGNESIUM OXIDE 400 MG TAB PO SCH (09:38)
[2016-07-22] MEDS: POTASSIUM CHLORIDE 20 MEQ CONTROLLED RELEASE TAB PO SCH ×2 (09:38→21:00)
[2016-07-22] MEDS: DIGOXIN 0.125 MG TAB PO SCH (09:39)
[2016-07-22] MEDS: BUMETANIDE 1 MG TAB PO SCH ×2 (09:39→17:36)
[2016-07-22] MEDS: methylPREDNISolone SOD SUCC 40 MG/1 ML VIAL IV PUSH SCH (09:40)
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
--- NOTE | 2016-07-22 16:00 | HHI.PR ---
Subjective Remarks 75 YOWM with COPD,OZ,Asbestos exposure,CHF Feels better Up on the bedside No Fever No CP Uses CPAP at night Objective Vital Signs Vital Signs Date Time Temp Pulse Resp B/P Pulse Ox O2 Delivery O2 Flow Rate FiO2 07/22/16 15:53 97.0 94 18 100/68 96 07/22/16 15:51 93 07/22/16 14:50 94 07/22/16 13:04 84 07/22/16 12:41 94 07/22/16 11:43 84 07/22/16 11:43 07/22/16 10:20 98.0 84 20 110/68 98 07/22/16 10:16 84 07/22/16 07:55 Nasal Cannula 4.00 07/22/16 07:55 89 07/22/16 04:00 98.0 88 20 98/65 92 07/22/16 04:00 88 07/22/16 03:00 86 07/22/16 02:00 88 07/22/16 01:00 88 07/22/16 00:00 88 07/21/16 23:30 98.2 86 18 109/70 93 07/21/16 23:00 84 07/21/16 22:00 84 07/21/16 21:00 84 07/21/16 20:00 98.2 88 18 98/67 97 07/21/16 20:00 94 Nasal Cannula 4.00 07/21/16 20:00 88 07/21/16 18:16 80 07/21/16 17:47 83 07/21/16 16:06 98.1 90 18 102/67 97 07/21/16 16:06 84 I/O 07/21/16 07/21/16 07/21/16 07/22/16 07/22/16 07/22/16 07:00 15:00 23:00 07:00 15:00 23:00 Intake Total 720 ml 940 ml 1000 ml Output Total 650 ml 425 ml Balance 70 ml 515 ml 1000 ml Intake Oral 720 ml 940 ml 1000 ml IV Total 0 ml Output Urine Total 650 ml 425 ml # Voids 3 3 # Bowel Movements 0 Result Diagram: 07/21/16 0426 07/21/16 0416 Objective Remarks GENERAL: MBMN WM, NAD SKIN: Warm and dry. HEAD: Normocephalic. EYES: No scleral icterus. No injection or drainage. NECK: Supple, trachea midline. No JVD or lymphadenopathy. CARDIOVASCULAR: Regular rate and rhythm without murmurs, gallops, or rubs. RESPIRATORY: Breath sounds equal bilaterally. No accessory muscle use. GASTROINTESTINAL: Abdomen soft, non-tender, nondistended. MUSCULOSKELETAL: No cyanosis, or edema. BACK: Nontender without obvious deformity. No CVA tenderness. A/P Assessment and Plan COPD OZ Asbestos exposure Pulm Fibrosis CHF CAD, s/p CABG PLAN: Diurease Aerosol nebs DC Solumedrol Pred 10 mg bid Supplement 02 CPAP at night Uziel Mcneal MD Jul 22, 2016 16:00
[2016-07-22] MEDS ORDERED: WARFARIN SOD 1 MG TAB PO SCH (17:00)
[2016-07-22] MEDS: CARVEDILOL 3.125 MG TAB PO SCH (21:00)
[2016-07-22] MEDS: predniSONE 10 MG TAB PO SCH (21:00)
[2016-07-22] MEDS: clonazePAM 1 MG TAB PO SCH (21:00)
[2016-07-23] VITALS (19 sets, daily range): BP systolic 104–143; BP diastolic 70–99; PULSE 64–90; RESP 18–23; TEMP 97–97.8; O2SAT 91–100
[2016-07-23 06:17] LABS: INTERNATIONAL NORMALIZED RATIO 2.4 RATIO; PROTHROMBIN TIME - PATIENT 27.5 SEC (9.8-11.6)
[2016-07-23] MEDS: BUDESONIDE-FORMOTEROL 160/4.5 MCG INHALER INH SCH (09:00)
[2016-07-23] MEDS: POTASSIUM CHLORIDE 20 MEQ CONTROLLED RELEASE TAB PO SCH (09:00)
[2016-07-23] MEDS: VITAMIN B COMPLEX/VIT C TAB PO SCH (09:00)
[2016-07-23] MEDS: TIOTROPIUM BROMIDE 18 MCG INH INH SCH (09:00)
[2016-07-23] MEDS: CLOPIDOGREL 75 MG TAB PO SCH (09:15)
[2016-07-23] MEDS: PANTOPRAZOLE SOD 40 MG DELAYED RELEASE TAB PO SCH (09:15)
[2016-07-23] MEDS: ATORVASTATIN 20 MG TAB PO SCH (09:15)
[2016-07-23] MEDS: predniSONE 10 MG TAB PO SCH (09:15)
[2016-07-23] MEDS: CARVEDILOL 3.125 MG TAB PO SCH (09:15)
[2016-07-23] MEDS: BUMETANIDE 1 MG TAB PO SCH (09:16)
[2016-07-23] MEDS: ISOSORBIDE MONONITRATE 60 MG TAB PO SCH (09:16)
[2016-07-23] MEDS: MAGNESIUM OXIDE 400 MG TAB PO SCH (09:16)
[2016-07-23] MEDS: MULTIVITAMIN TAB PO SCH (09:16)
[2016-07-23] MEDS: SODIUM CHLORIDE 0.9% FLUSH 5 ML FLUSH FLUSH SCH (09:30)
--- NOTE | 2016-07-23 11:56 | HHI.PR ---
Subjective Interval History awake alert laying in bed appears comfortable appears to be at baseline no fever remains on 4L NC and CPAP at night no family at bed side cleared by PULm for discharge Vitals/Results Intake & Output 07/22/16 07/22/16 07/23/16 15:00 23:00 07:00 Intake Total 1000 ml 1000 ml 100 ml Balance 1000 ml 1000 ml 100 ml Intake Oral 1000 ml 1000 ml 100 ml IV Total 0 ml 0 ml # Voids 3 3 4 # Bowel Movements 2 Vital Signs Vital Signs Date Time Temp Pulse Resp B/P Pulse Ox O2 Delivery O2 Flow Rate FiO2 07/23/16 07:00 97.5 80 23 104/83 96 07/23/16 06:00 84 07/23/16 05:00 86 07/23/16 04:20 97.5 80 18 112/83 100 07/23/16 04:00 83 07/23/16 03:00 83 07/23/16 02:00 88 07/23/16 01:00 86 07/23/16 00:10 97 Bi-Pap 6.00 07/23/16 00:10 97.0 88 18 107/72 97 07/23/16 00:00 84 07/22/16 23:00 84 07/22/16 22:00 80 07/22/16 21:00 96 07/22/16 20:00 96 07/22/16 19:40 97.7 80 18 94/74 96 07/22/16 19:40 Nasal Cannula 4.00 07/22/16 19:00 88 07/22/16 18:21 83 07/22/16 17:22 80 07/22/16 15:53 97.0 94 18 100/68 96 07/22/16 15:51 93 07/22/16 14:50 94 07/22/16 13:04 84 07/22/16 12:41 94 CBC/BMP: 07/21/16 0426 07/21/16 0416 Lab Results Laboratory Tests Test 07/23/16 05:20 Prothrombin Time 27.5 SEC Prothromb Time International 2.4 RATIO Ratio Physical Exam General General Appearance: Well Nourished Appearance Remarks facial cyanosis improving Eyes Eye Exam: Pupils Equal, Pupils Reactive Ears & Nose Ears & Nose Remarks nose bleed left nostril , per nursing patient was picking his nose Throat Throat Exam: Oral Mucosa [place] & Moist Neck Neck Exam: Neck Supple, Trachea Midline Pulmonary Resp Exam: Clear Bilaterally, Breath Sounds Equal Cardiology CV Exam: Regular, Normal Sinus Rhythm Gastrointestinal/Abdomen GI Exam: Soft, Non-Tender, Bowel Sounds Present Musculoskeletal MS Exam: Joints Intact, Normal Gait, Normal Tone Integumentary Skin Exam: Clear, Warm, Dry, Intact Extremeties Extremities Exam: No Edema Neurologic Neuro Exam: Alert, Awake, Oriented, Speech Clear, Moving All Extremities Psychiatric Psych Exam: Appropriate Responses Assessment/Plan Assessment/Plan Assessment and Plan Assessment and Plan Problem List: (1) Hypoxia (2) Cardiomyopathy (3) Obstructive sleep apnea (4) CKD (chronic kidney disease) stage 4, GFR 15-29 ml/min (5) COPD exacerbation (6) Interstitial fibrosis (7) Hx of CABG (8) CAD (coronary artery disease) (9) Low blood pressure Assessment and Plan 75-year-old male with significant past medical history of this CHF, chronic kidney disease, interstitial fibrosis, COPD, CAD and stents. Patient presented to emergency room with worsening shortness of breath, possible CHF exacerbation versus hypoxia secondary to interstitial fibrosis. Hypoxia, pulm fibrosis exacerbation Pulmonary following DuoNeb's as needed Continue with oxygen therapy to keep sats greater than 92%. -switched to PO prednisone _CT chest noted -Cleared by PUlm for discharge CHF exacerbation, as echocardiogram August 2015, showed EF of 30-40%. Patient has AICD -Change Bumex to 1 mg by mouth twice a day -Echocardiogram EF 35-40%, diffuse hypokinesis -Appreciate Cardiology input, CHF exacerbation, unlikely per Cardiology Chronic kidney disease stage IV, Monitor renal function closely Avoid nephrotoxic agents Coronary artery disease with recent stent, Continue to monitor Continue home medications - low BP, dose of Coreg decreased to 3.125 mg po bid Chronic A. fib, on Coumadin Continue with Coumadin Follow INR daily -Continue with carvedilol, amiodarone, digoxin -Continuous cardiac telemetry Hyperlipidemia Continue with home medications History of gout, stable Continue with home medications Home medications reviewed, initiated as indicated For DVT prophylaxis, continue Coumadin discussed with patient discussed with Dr Mcnealok to d/c home, Appears at baseline Discharge to home with [facility] Namrata Carter MD Jul 23, 2016 11:56
[2016-07-23] MEDS ORDERED: PRED10 PO (12:01)
[2016-07-23] MEDS ORDERED: BUME1TAB PO (12:01)
[2016-07-23] MEDS ORDERED: CARV3.125 PO (12:01)
--- NOTE | 2016-07-23 12:02 | HHI.FF ---
Face to Face Verification Diagnosis: (1) Interstitial fibrosis (2) Hypoxia Physical Therapy Order: Evaluate and Treat Occupational Therapy Order: Evaluate and Treat Home Health Nursing Order: Signs/symptoms of disease process I have seen patient Aleks Levin on 07/23/16. My clinical findings support the need for the requested home health care services because: Patient has SOB I certify that my clinical findings support that this patient is homebound because: Hx COPD- exertion dyspnea/weakness Namrata Carter MD Jul 23, 2016 12:02
[2016-07-23] MEDS ORDERED: WARFARIN SOD 2 MG TAB PO SCH (16:00)
--- NOTE | 2016-07-23 17:56 | HHI.DS ---
Discharge Summary Admission Date Jul 17, 2016 at 19:26 Discharge Date: Jul 23, 2016 Admitting Diagnosis hypoxia (1) Hypoxia Diagnosis: Principal (2) Cardiomyopathy Diagnosis: Secondary (3) Obstructive sleep apnea Diagnosis: Secondary (4) CKD (chronic kidney disease) stage 4, GFR 15-29 ml/min Diagnosis: Secondary (5) COPD exacerbation Diagnosis: Principal (6) Interstitial fibrosis Diagnosis: Secondary (7) Hx of CABG Diagnosis: Secondary (8) CAD (coronary artery disease) Diagnosis: Secondary (9) Low blood pressure Diagnosis: Principal Brief History This was a pleasant 75-year-old white male with significant past medical history of CAD, cardiomyopathy, chronic kidney disease stage IV, restrictive lung disease and interstitial fibrosis, oxygen dependent, obstructive sleep apnea, chronic A. fib, AICD, cardiac cath in 2016 with stent placement. Patient was a part-time resident in the area, the rest of the year he lived in [facility]. He had 3 plane tableman that he followed regularly in [place]. He had no local plane tableman in the area. Patient presented to the emergency room with complaint of increasing generalized weakness and worsening dyspnea on exertion. Patient was not a very good historian, he was requesting that I speak to his who just left on admission to the hospital. He was able to provide some details and the rest was obtained from review of previous admissions and the ER record. According to the patient, he had ongoing shortness of breath for the last 4 months that had been worsening in the last couple of days before admission. Although he had lost some weight as he's had very little appetite, he had been retaining fluid in the last couple days. Per ER report, he went to see primary care physician who told him to take Bumex as long as his blood pressure was okay but his indicated that the blood pressure had been running in the 80s and 90s so she was not able to give him the diuretic. CBC/BMP: 07/21/16 0426 07/21/16 0416 Significant Findings Laboratory Tests Test 07/21/16 07/21/16 07/22/16 07/23/16 04:16 04:26 05:20 05:20 Prothrombin Time 23.6 SEC 24.9 SEC 27.5 SEC (9.8-11.6) (9.8-11.6) (9.8-11.6) Blood Urea Nitrogen 51 MG/DL (7-18) Creatinine 2.38 MG/DL (0.60-1.30) Estimat Glomerular Filtration 27 ML/MIN (>89) Rate Random Glucose 114 MG/DL (74-106) Red Blood Count 4.00 MIL/MM3 (4.50-5.90) Hemoglobin 11.3 GM/DL (13.0-17.0) Hematocrit 34.6 % (39.0-51.0) Red Cell Distribution Width 21.9 % (11.6-17.2) Platelet Count 118 TH/MM3 (150-450) Neutrophils (%) (Auto) 92.9 % (16.0-70.0) Lymphocytes (%) (Auto) 4.0 % (9.0-44.0) Neutrophils # (Auto) 8.7 TH/MM3 (1.8-7.7) Lymphocytes # (Auto) 0.4 TH/MM3 (1.0-4.8) Imaging Last Impressions Chest CT 07/19/16 0000 Signed Impressions: Service Date/Time: Tuesday, July 19, 2016 16:53 - CONCLUSION: Right pleural effusion. Paul Thurman MD Chest X-Ray 07/17/16 1611 Signed Impressions: Service Date/Time: Sunday, July 17, 2016 16:31 - CONCLUSION: No acute disease. Matt Brown MD PE at Discharge General Appearance: Well Nourished Appearance Remarks facial cyanosis improving Eye Exam: Pupils Equal, Pupils Reactive Ears & Nose Remarks nose bleed left nostril , per nursing patient was picking his nose Throat Exam: Oral Mucosa [place] & Moist Neck Exam: Neck Supple, Trachea Midline Resp Exam: Clear Bilaterally, Breath Sounds Equal CV Exam: Regular, Normal Sinus Rhythm GI Exam: Soft, Non-Tender, Bowel Sounds Present MS Exam: Joints Intact, Normal Gait, Normal Tone Skin Exam: Clear, Warm, Dry, Intact Extremities Exam: No Edema Neuro Exam: Alert, Awake, Oriented, Speech Clear, Moving All Extremities Psych Exam: Appropriate Responses Hospital Course According to records in the ER and from previous admission, shows that patient' s blood pressure typically ran 90s to 100s. He's had increased dyspnea on exertion, he's only able to walk 10 feet and then became extreme severely short of breath with some mild chest tightness. He denied any fever, no chills. He had a cough that was mild, no sputum. He had been extremely weak. He used oxygen at home at 2 L. He did have a cardiac catheter last year and had a stent placement. He did have chronic kidney disease stage IV and continues to make urine. Patient was evaluated in the emergency room, laboratory workup was completed. Temperature 97.4, pulse rate 86, respiratory rate 18, blood pressure 105/61 sats 97%. WBC 6.4, hemoglobin 12, hematocrit 36. Platelet count 110. B UN appears at baseline, B1 37, creatinine 3.03 with GFR of 20. B natruretic peptide 244. Chest x-ray did not reveal any acute findings. He was given IV Bumex in the emergency room and had been diuresing well. He had leg edema, but improved. Patient was ambulated in the emergency room and was noted with dyspnea and desaturated to 86. Patient was evaluated in his room, he's noted with periorbital cyanosis and clubbing. He was short of breath with conversation. Sats were 91% on 4 L. Subsequently, patient was transfered to [facility]. These are the diagnoses that were used to treat this patient and his plan of care during his hospital stay. (1) Hypoxia (2) Cardiomyopathy (3) Obstructive sleep apnea (4) CKD (chronic kidney disease) stage 4, GFR 15-29 ml/min (5) COPD exacerbation (6) Interstitial fibrosis (7) Hx of CABG (8) CAD (coronary artery disease) (9) Low blood pressure Initially patient was transferred to the [facility] for further intensive monitoring and treatment plan. Hypoxia, was noted with his pulm fibrosis exacerbation. Pulmonary consult and followed throughout hospital stay DuoNeb's as needed were ordered Patient had continuous oxygen therapy to keep sats greater than 92%. Initially required IV steroids, but was able to be swapped to by mouth when stabilized. _CT chest was done for his treatment regimen. Pulmonary followed patient throughout his stay and did okay his discharge before leaving the hospital. CHF exacerbation was treated during his hospital stay. Patient had echocardiogram August 2015, showed EF of 30-40%. Patient already has AICD. -During the course of this treatment , his Bumex was changed to 1 mg by mouth twice a day. -Echocardiogram EF 35-40%, diffuse hypokinesis was noted on his echo. Cardiology consult was appreciated and input for his treatment plan. Cardiology felt patient did not have a CHF exacerbation. Patient has Chronic kidney disease stage IV, Monitor renal function closely during his hospital stay included Avoid of nephrotoxic agents. Coronary artery disease with recent stent before this hospital stay. We did continue to monitor and reconciled and continued patient's home medications. Patient did have episodes of hypotension, dose of Coreg decreased to 3.125 mg po bid. this was monitored throughout his stay. Chronic A. fib, on Coumadin on admission. We will Continue with Coumadin and Follow INR daily. -Continue his medications of carvedilol, amiodarone, digoxin during his hospital stay as well as -Continuous cardiac telemetry. Hyperlipidemia Continue with home medications History of gout, stable Continue with home medications Home medications reviewed, initiated as indicated For DVT prophylaxis, continue Coumadin On day of discharge patient was seen per Dr. Carter. She felt patient was back to his baseline and was stable for discharge. Pt Condition on Discharge: Stable Discharge Disposition: Disch w/ Home Health Serv Discharge Instructions DIET: Follow Instructions for: Heart Healthy Diet Fluid Restrictions: 1000 ml/day Activities you can perform: Regular-No Restrictions Follow up Referrals: Pulmonology - 1 Week with Uziel Mcneal MD New Medications: Bumetanide (Bumetanide) 1 Mg Tab 1 MG PO BID@,18 CHF Days 30 TAB Carvedilol (Coreg) 3.125 Mg Tab 3.125 MG PO BID A fib Days 30 TAB Prednisone (Prednisone) 10 Mg Tab 10 MG PO BID Shortness of Breath Days 14 TAB Continued Medications: Albuterol 18 GM Inh (Ventolin Hfa 18 GM Inh) 90 Mcg/Act Aer 2 PUFF INH BID PRN SHORTNESS OF BREATH #1 Ref 0 INHALER Amiodarone (Amiodarone) 200 Mg Tab 100 MG PO MOWEFR Take 1/2 tablet (100mg) daily on Friday,Friday and Friday Regulate Heart Beat #30 Ref 0 TAB B-Complex Vitamins (Vitamin B Complex) 1 Tab 1 TAB PO DAILY Budesonide-Formoterol Inh (Symbicort Inh) 160-4.5 Mcg/Act Aero 2 PUFF INH BID #1 Ref 0 INHALER Clonazepam (Clonazepam) 2 Mg Tab 2 MG PO HS #90 Ref 0 TAB Clopidogrel (Plavix) 75 Mg Tab 75 MG PO DAILY Blood Clot Prevention #30 Ref 0 TAB Coenzyme Q10 (Ubidecarenone) (Coq-10) 100 Mg Cap 100 MG PO DAILY Colchicine (Colchicine) 0.6 Mg Tab 0.6 MG PO MOWEFR Take 1 tablet (0.6mg) daily on Friday,Friday and Friday Gout Prevention Ref 0 TAB Diazepam (Valium) 5 Mg Tab 5 MG PO TID PRN SPASM #12 Ref 0 TAB Digoxin (Digoxin) 0.125 Mg Tab 0.125 MG PO MOWEFR Take 1 tablet (0.125mg) daily on Friday,Friday and Friday Regulate Heart Beat #30 Ref [address] (Nexium) 40 Mg Capdr 40 MG PO DAILY Ref 0 CAP Isosorbide Mononitrate (Isosorbide Mononitrate) 20 Mg Tab 60 MG PO DAILY Take 2 doses 7 hours apart. Prevent Chest Pain #60 Ref 0 TAB Magnesium (Magnesium) 400 Mg Tab 400 MG PO DAILY Nutritional Supplement Ref 0 TAB Metolazone (Metolazone) 2.5 Mg Tab 2.5 MG PO SUTH Take 1 tablet (2.5mg) 30 minutes before taking Bumex on Friday and #30 Ref 0 TAB Morphine Liq (Morphine Liq) 20 Mg/Ml Liq 10 MG SL Q3H Give (0.5 ml)for severe pain/shortness of breath PRN PAIN SCALE 6 TO 10 Ref 0 ML Multiple Vitamin (Multi Vitamin) 1 Tab Tab 1 TAB PO DAILY TAB Mupirocin Nasal Oint (Bactroban Nasal Oint) 2% Oint 1 APPLIC EACH NARE DAILY PRN DRY NOSE #1 Ref 0 TUBE Polyethylene Glycol 3350 Powder (Miralax Powder) 17 Gm Powd 17 GM PO DAILY Mix and dissolve one measuring capful (17 grams) in water or juice. PRN CONSTIPATION #1 Ref 0 BOTTLE Potassium Chloride ER (Potassium Chloride ER) 20 Meq Tab 80 MEQ PO BID Electrolyte Replacement #60 Ref 0 TAB Ropinirole (Requip) 3 Mg Tab 3 MG PO HS #30 Ref 0 TAB Rosuvastatin (Crestor) 10 Mg Tab 10 MG PO DAILY Cholesterol Management #30 Ref 0 TAB Tiotropium Inh (Spiriva Handihaler) 18 Mcg Cap 18 MCG INH DAILY 1 capsule = 18 mcg COPD #30 Ref 0 CAP Warfarin (Coumadin) 2 Mg Tab 2 MG PO SUTUWETHSA Take 1 tablet (2mg) daily in the pm on Friday,Friday, Friday, and Friday Prevent Blood Clot #30 Ref 0 TAB Warfarin (Coumadin) 2 Mg Tab 1 MG PO MOFR Take 1/2 tablet (1mg) daily in the pm on Friday and Friday Prevent Blood Clot #30 Ref 0 TAB Discontinued Medications: Bumetanide (Bumex) 2 Mg Tab 2 MG PO BID Ref 0 TAB Carvedilol (Carvedilol) 12.5 Mg Tab 12.5 MG PO BID #60 Ref 0 TAB Kendal Jones Jul 23, 2016 17:56
== END 2016-07-23 17:27 | disposition home health service (06) | DRG 196 ==
LOC: NEPE 15:03 → NEDA 19:26 → N06A 22:02 → HCIN 07-18 13:16
PROVIDERS: ADMIT Internal Medicine; ATTEND Internal Medicine
PROC: 3E0F7GC Introduction of Other Therapeutic Substance into Respiratory Tract, Via Natural or Artificial Opening (ICD-10-PCS; principal; 2016-07-17)
DX: J61 Pneumoconiosis due to asbestos and other mineral fibers (principal); I50.23 Acute on chronic systolic (congestive) heart failure; N18.4 Chronic kidney disease, stage 4 (severe); I95.9 Hypotension, unspecified; I48.2 Chronic atrial fibrillation; E87.70 Fluid overload, unspecified; J44.1 Chronic obstructive pulmonary disease with (acute) exacerbation; Z99.81 Dependence on supplemental oxygen; I12.9 Hypertensive chronic kidney disease with stage 1 through stage 4 chronic kidney disease, or unspecified chronic kidney disease; G25.81 Restless legs syndrome; I25.5 Ischemic cardiomyopathy; I25.10 Atherosclerotic heart disease of native coronary artery without angina pectoris; E78.00 Pure hypercholesterolemia, unspecified; R09.02 Hypoxemia; M19.90 Unspecified osteoarthritis, unspecified site; H91.90 Unspecified hearing loss, unspecified ear; K21.9 Gastro-esophageal reflux disease without esophagitis; M10.9 Gout, unspecified; K44.9 Diaphragmatic hernia without obstruction or gangrene; G47.33 Obstructive sleep apnea (adult) (pediatric); E78.5 Hyperlipidemia, unspecified; R04.0 Epistaxis; F41.8 Other specified anxiety disorders; N62 Hypertrophy of breast; Z88.5 Allergy status to narcotic agent; Z88.8 Allergy status to other drugs, medicaments and biological substances; Z95.1 Presence of aortocoronary bypass graft; Z87.442 Personal history of urinary calculi; Z95.5 Presence of coronary angioplasty implant and graft; Z79.01 Long term (current) use of anticoagulants; Z95.810 Presence of automatic (implantable) cardiac defibrillator
CPT/HCPCS: 71010; 71250; 76937; 80048; 80053; 80076; 81001; 82550; 83880; 84484; 84550; 85025; 85027; 85610; 85730; 93005; 93306; 96374; J2920; J7512; P9047

== ENCOUNTER 2016-08-03 16:15 | Emergency (ER) | payer MEDICARE ==
[~2016-08-03] VITALS: Ht 170.2 cm; Wt 88.0 kg
[~2016-08-03 16:15] MED LIST changes: +BUME1TAB PO; -BUME1TAB28 PO; +CARV3.125 PO; -CARV6.25 PO; +COQ-100C2 PO; +MIRA33504 PO; -MORP10S2 PO; +MORP20SO2 SL; -MORP25IN2; +MULT-135 PO; +POTA-163 PO; -POTA75TA2 PO; +PRED10 PO; +SPIRCAP INH; +SYMB160A INH; +VITATAB11 PO
[2016-08-03 16:18] VITALS: BP 110/71; PULSE 82; RESP 20; TEMP 97.5; O2SAT 95
--- NOTE | 2016-08-03 17:15 | PD ---
Physical Exam Narrative Patient was seen and examined with my general office assistant. Data Data Last Documented VS Vital Signs Date Time Temp Pulse Resp B/P Pulse Ox O2 Delivery O2 Flow Rate FiO2 08/03/16 16:18 97.5 82 20 110/71 95 Room Air Orders Complete Blood Count With Diff (08/03/16 17:07) Prothrombin Time / Inr (Pt) (08/03/16 17:07) MDM Supervised Visit with RAYSHAWN: Yes Kevin Manley MD Aug 03, 2016 17:15
--- NOTE | 2016-08-03 17:22 | PD ---
HPI Chief Complaint: Laceration/Skin Injury Time Seen by Provider: 17:08 Travel History International Travel<30 days: No Contact w/Intl Traveler<30days: No Traveled to known affect area: No History of Present Illness HPI This is a 75-year-old male who is on Coumadin and Plavix. He presents for evaluation of a bleeding wound. Symptoms started yesterday evening. He reports that he had a scab which he had been picking at on his right arm and yesterday evening he started bleeding. The patient and his are having difficulty stopping the bleeding at home with pressure dressings and so they come in for evaluation. He is denying any lightheadedness or dizziness. He does also have a wound on his lateral right ankle which has apparently already stopped bleeding. No other complaints. PFSH Past Medical History Hx Anticoagulant Therapy: Yes Anemia: Yes Arthritis: Yes Atrial Fibrillation: Yes Anxiety: Yes Heart Rhythm Problems: Yes Cardiomyopathy: Yes Cardiovascular Problems: Yes High Cholesterol: Yes Chemotherapy: No Chest Pain: Yes Congestive Heart Failure: Yes COPD: Yes Cerebrovascular Accident: No Coronary Artery Disease: Yes Diabetes: No Diminished Hearing: Yes GERD: Yes Gout: Yes Hiatal Hernia: Yes Hypertension: Yes Kidney Stones: Yes Neurologic: No Respiratory: Yes Immunizations Current: Yes Pneumonia: Yes Renal Failure: Yes Sleep Apnea: Yes (wears cpap) Past Surgical History AICD: Yes (pacer/defib [facility]) Cholecystectomy: Yes Coronary Artery Bypass Graft: Yes (multiple) Pacemaker: Yes ([facility]) Other Surgery: Yes Social History Alcohol Use: No Tobacco Use: No Substance Use: No Allergies-Medications (Allergen,Severity, Reaction): Coded Allergies: Ambien (Unverified Allergy, Mild, 08/03/16) Decadron (Verified Allergy, Unknown, 08/03/16) "steroid psychosis" HMG-CoA Reductase Inhibitors (Verified Allergy, Unknown, 08/03/16) muscle pain Hydrocodone (Verified Allergy, Unknown, 08/03/16) chest pain Reported Meds & Prescriptions Reported Meds & Active Scripts Active Prednisone 10 Mg Tab 10 Mg PO BID 14 Days Coreg (Carvedilol) 3.125 Mg Tab 3.125 Mg PO BID 30 Days Bumetanide 1 Mg Tab 1 Mg PO BID@,18 30 Days Valium (Diazepam) 5 Mg Tab 5 Mg PO TID PRN Reported Isosorbide Mononitrate ER (Isosorbide Mononitrate) 60 Mg Tab 60 Mg PO DAILY Symbicort Inh (Budesonide/Formoterol Fumarate) 160-4.5 Mcg/Act Aero 2 Puff INH BID Spiriva Handihaler (Tiotropium Inh) 18 Mcg Cap 18 Mcg INH DAILY 1 capsule = 18 mcg Coq-10 (Coenzyme Q10 (Ubidecarenone)) 100 Mg Cap 100 Mg PO DAILY Multi Vitamin (Multiple Vitamin) 1 Tab Tab 1 Tab PO DAILY Vitamin B Complex (B-Complex Vitamins) 1 Tab 1 Tab PO DAILY Miralax Powder (Polyethylene Glycol 3350 Powder) 17 Gm Powd 17 Gm PO DAILY PRN Mix and dissolve one measuring capful (17 grams) in water or juice. Coumadin (Warfarin) 2 Mg Tab 1 Mg PO MOFR Take 1/2 tablet (1mg) daily in the pm on Friday and Friday Potassium Chloride ER (Potassium Chloride) 20 Meq Tab 80 Meq PO BID Morphine Liq (Morphine Sulfate) 20 Mg/Ml Liq 10 Mg SL Q3H PRN Give (0.5 ml)for severe pain/shortness of breath Requip (Ropinirole) 3 Mg Tab 3 Mg PO HS Plavix (Clopidogrel Bisulfate) 75 Mg Tab 75 Mg PO DAILY Nexium (Esomeprazole DR) 40 Mg Capdr 40 Mg PO DAILY Metolazone 2.5 Mg Tab 2.5 Mg PO SUTH Take 1 tablet (2.5mg) 30 minutes before taking Bumex on Friday and Magnesium 400 Mg Tab 400 Mg PO DAILY Digoxin 0.125 Mg Tab 0.125 Mg PO MOWEFR Take 1 tablet (0.125mg) daily on Friday,Friday and Friday Crestor (Rosuvastatin Calcium) 10 Mg Tab 10 Mg PO HS Coumadin (Warfarin) 2 Mg Tab 2 Mg PO SUTUWETHSA Take 1 tablet (2mg) daily in the pm on Friday,Friday,Friday, and Friday Colchicine 0.6 Mg Tab 0.6 Mg PO MOWEFR Take 1 tablet (0.6mg) daily on Friday,Friday and Friday Clonazepam 2 Mg Tab 2 Mg PO HS Amiodarone (Amiodarone HCl) 200 Mg Tab 100 Mg PO MOWEFR Take 1/2 tablet (100mg) daily on Friday,Friday and Friday Ventolin Hfa 18 GM Inh (Albuterol Sulfate) 90 Mcg/Act Aer 2 Puff INH BID PRN Review of Systems Except as stated in HPI: all other systems reviewed are Neg Physical Exam Narrative GENERAL: Pleasant well-developed well-nourished male in no acute distress SKIN: Warm and dry. On the posterior aspect of the right arm just proximal to the elbow joint there is a 1-2 mm wound which has some oozing of blood. There is no pulsating blood. On the lateral right ankle there is some dried blood with no obvious source. HEAD: Atraumatic. Normocephalic. EYES: Pupils equal and round. No scleral icterus. No injection or drainage. ENT: No nasal bleeding or discharge. Mucous membranes pink and moist. NECK: Trachea midline. No JVD. CARDIOVASCULAR: Regular rate and rhythm. No murmur appreciated. RESPIRATORY: No accessory muscle use. Clear to auscultation. Breath sounds equal bilaterally. MUSCULOSKELETAL: No obvious deformities. 2+ pitting edema bilaterally. NEUROLOGICAL: Awake and alert. No obvious cranial nerve deficits. Motor grossly within normal limits. Normal speech. Data Data Last Documented VS Vital Signs Date Time Temp Pulse Resp B/P Pulse Ox O2 Delivery O2 Flow Rate FiO2 08/03/16 16:18 97.5 82 20 110/71 95 Room Air Orders Complete Blood Count With Diff (08/03/16 17:07) Prothrombin Time / Inr (Pt) (08/03/16 17:07) Labs Laboratory Tests Test 08/03/16 17:30 White Blood Count 9.3 TH/MM3 Red Blood Count 4.34 MIL/MM3 Hemoglobin 11.9 GM/DL Hematocrit 36.9 % Mean Corpuscular Volume 85.2 FL Mean Corpuscular Hemoglobin 27.5 PG Mean Corpuscular Hemoglobin 32.2 % Concent Red Cell Distribution Width 21.3 % Platelet Count 135 TH/MM3 Mean Platelet Volume 9.4 FL Neutrophils (%) (Auto) 86.3 % Lymphocytes (%) (Auto) 5.1 % Monocytes (%) (Auto) 8.3 % Eosinophils (%) (Auto) 0.1 % Basophils (%) (Auto) 0.2 % Neutrophils # (Auto) 8.0 TH/MM3 Lymphocytes # (Auto) 0.5 TH/MM3 Monocytes # (Auto) 0.8 TH/MM3 Eosinophils # (Auto) 0.0 TH/MM3 Basophils # (Auto) 0.0 TH/MM3 CBC Comment DIFF FINAL Differential Comment Prothrombin Time 46.0 SEC Prothromb Time International 3.9 RATIO Ratio MDM Medical Decision Making Medical Screen Exam Complete: Yes Emergency Medical Condition: Yes Medical Record Reviewed: Yes Interpretation(s) INR 3.9 CBC hemoglobin 11.9 platelet count 135 and otherwise unremarkable Differential Diagnosis Bleeding puncture wound versus bleeding ulceration versus supratherapeutic INR versus hemorrhagic anemia Narrative Course The wound on the right arm was closed with wound seal powder. INR and CBC have been ordered. The INR was supratherapeutic at 3.9. The patient is due to take 2 mg of Coumadin today and was advised that he hold it today. He is to follow up closely with his primary care physician for repeat INR. Diagnosis Primary Impression: Bleeding from wound Additional Impression: Supratherapeutic INR Additional Instructions: Follow-up closely with primary care physician regarding INR rechecks. Avoid scratching or picking at skin. Return for any emergent medical conditions. Med/Other Pt SpecificInfo: Wound Care Disposition: 01 DISCHARGE HOME Condition: Stable Frankie Monte Aug 03, 2016 17:22
[2016-08-03 17:56] LABS: BASOPHIL % 0.2 % (0.0-2.0); EOSINOPHIL % 0.1 % (0.0-4.0); HEMATOCRIT 36.9 % (39.0-51.0); HEMO FLAGS DIFF FINAL; LYMPH % 5.1 % (9.0-44.0); LYMPHOCYTE # 0.5 TH/MM3 (1.0-4.8); MEAN CELL VOLUME 85.2 FL (80.0-100.0); MEAN CORPUSCULAR HEMOGLOBIN 27.5 PG (27.0-34.0); MEAN CORPUSCULAR HGB CONC 32.2 % (32.0-36.0); MONO % 8.3 % (0.0-8.0); NEUT % 86.3 % (16.0-70.0); PLATELET COUNT 135 TH/MM3 (150-450); RED BLOOD COUNT 4.34 MIL/MM3 (4.50-5.90); RED CELL DISTRIBUTION WIDTH 21.3 % (11.6-17.2); WHITE BLOOD COUNT 9.3 TH/MM3 (4.0-11.0)
[2016-08-03 17:59] LABS: INTERNATIONAL NORMALIZED RATIO 3.9 RATIO
[2016-08-03] MEDS ORDERED: ISOS60TA PO (17:59)
== END 2016-08-03 19:55 | disposition home or self-care (01) ==
LOC: NEPA 16:15
DX: S41.101A Unspecified open wound of right upper arm, initial encounter (principal); R79.1 Abnormal coagulation profile; R58 Hemorrhage, not elsewhere classified; I48.91 Unspecified atrial fibrillation; E78.00 Pure hypercholesterolemia, unspecified; I10 Essential (primary) hypertension; X58.XXXA Exposure to other specified factors, initial encounter; Z79.01 Long term (current) use of anticoagulants
CPT/HCPCS: 12001; 85025; 85610

== ENCOUNTER 2016-08-24 16:58 | Inpatient (IN) | payer MEDICARE ==
[~2016-08-24] VITALS: Ht 175.3 cm; Wt 85.4 kg
[~2016-08-24 16:58] MED LIST changes: -BACTOIN EACH NARE; -ISOS20TA PO; +ISOS60TA PO
[2016-08-24 17:04] VITALS: BP 96/56; PULSE 84; RESP 19; TEMP 97.8; O2SAT 95
[2016-08-24 17:08] VITALS: BP 96/56; PULSE 84; RESP 18; O2SAT 97
[2016-08-24 17:16] VITALS: O2SAT 97
--- NOTE | 2016-08-24 17:22 | PD ---
HPI Chief Complaint: Pain: Acute or Chronic Time Seen by Provider: 17:09 Travel History International Travel<30 days: No Contact w/Intl Traveler<30days: No Traveled to known affect area: No History of Present Illness HPI 75-year-old male with history of multiple medical issues, presents to the ER today for at least a 1-1/2 week history of left leg pain, swelling, redness, states that initially his left leg was oozing clear fluid but it started getting red at the left anterior dailey area where there was a small laceration. He denies any chest pains, shortness of breath, fevers, or any other symptoms. He states that the pain currently is in a 7 out of 10. Modifying Factors: None Associated Signs & Symptoms: Left leg pain, swelling, redness Risk Factors: None PFSH Past Medical History Hx Anticoagulant Therapy: Yes Anemia: Yes Arthritis: Yes Atrial Fibrillation: Yes Anxiety: Yes Heart Rhythm Problems: Yes Cardiomyopathy: Yes Cardiovascular Problems: Yes High Cholesterol: Yes Chemotherapy: No Chest Pain: Yes Congestive Heart Failure: Yes COPD: Yes Cerebrovascular Accident: No Coronary Artery Disease: Yes Diabetes: No Diminished Hearing: Yes GERD: Yes Gout: Yes Hiatal Hernia: Yes Hypertension: Yes Kidney Stones: Yes Neurologic: No Respiratory: Yes Immunizations Current: Yes Pneumonia: Yes Renal Failure: Yes Sleep Apnea: Yes (wears cpap) Past Surgical History AICD: Yes (pacer/defib [facility]) Cholecystectomy: Yes Coronary Artery Bypass Graft: Yes (multiple) Pacemaker: Yes ([facility]) Other Surgery: Yes Social History Alcohol Use: No Tobacco Use: No Substance Use: No Allergies-Medications (Allergen,Severity, Reaction): Coded Allergies: Ambien (Unverified Allergy, Mild, 08/24/16) Decadron (Verified Allergy, Unknown, 08/24/16) "steroid psychosis" HMG-CoA Reductase Inhibitors (Verified Allergy, Unknown, 08/24/16) muscle pain Hydrocodone (Verified Allergy, Unknown, 08/24/16) chest pain Reported Meds & Prescriptions Reported Meds & Active Scripts Active Coreg (Carvedilol) 3.125 Mg Tab 3.125 Mg PO BID 30 Days Bumetanide 1 Mg Tab 1 Mg PO BID@,18 30 Days Reported Plavix (Clopidogrel Bisulfate) 75 Mg Tab 75 Mg PO DAILY Isosorbide Mononitrate ER (Isosorbide Mononitrate) 60 Mg Tab 60 Mg PO DAILY Symbicort Inh (Budesonide/Formoterol Fumarate) 160-4.5 Mcg/Act Aero 2 Puff INH BID Spiriva Handihaler (Tiotropium Inh) 18 Mcg Cap 18 Mcg INH DAILY 1 capsule = 18 mcg Coq-10 (Coenzyme Q10 (Ubidecarenone)) 100 Mg Cap 100 Mg PO DAILY Multi Vitamin (Multiple Vitamin) 1 Tab Tab 1 Tab PO DAILY Vitamin B Complex (B-Complex Vitamins) 1 Tab 1 Tab PO DAILY Miralax Powder (Polyethylene Glycol 3350 Powder) 17 Gm Powd 17 Gm PO DAILY PRN Mix and dissolve one measuring capful (17 grams) in water or juice. Coumadin (Warfarin) 2 Mg Tab 1 Mg PO MOFR Take 1/2 tablet (1mg) daily in the pm on Friday and Friday Potassium Chloride ER (Potassium Chloride) 20 Meq Tab 80 Meq PO BID Morphine Liq (Morphine Sulfate) 20 Mg/Ml Liq 10 Mg SL Q3H PRN Give (0.5 ml)for severe pain/shortness of breath Requip (Ropinirole) 3 Mg Tab 3 Mg PO HS Plavix (Clopidogrel Bisulfate) 75 Mg Tab 75 Mg PO DAILY Nexium (Esomeprazole DR) 40 Mg Capdr 40 Mg PO DAILY Metolazone 2.5 Mg Tab 2.5 Mg PO SUTH Take 1 tablet (2.5mg) 30 minutes before taking Bumex on Friday and Magnesium 400 Mg Tab 400 Mg PO DAILY Digoxin 0.125 Mg Tab 0.125 Mg PO MOWEFR Take 1 tablet (0.125mg) daily on Friday,Friday and Friday Crestor (Rosuvastatin Calcium) 10 Mg Tab 10 Mg PO HS Coumadin (Warfarin) 2 Mg Tab 2 Mg PO SUTUWETHSA Take 1 tablet (2mg) daily in the pm on Friday,Friday,Friday, and Friday Colchicine 0.6 Mg Tab 0.6 Mg PO MOWEFR Take 1 tablet (0.6mg) daily on Friday,Friday and Friday Clonazepam 2 Mg Tab 2 Mg PO HS Amiodarone (Amiodarone HCl) 200 Mg Tab 100 Mg PO MOWEFR Take 1/2 tablet (100mg) daily on Friday,Friday and Friday Ventolin Hfa 18 GM Inh (Albuterol Sulfate) 90 Mcg/Act Aer 2 Puff INH BID PRN Review of Systems Except as stated in HPI: all other systems reviewed are Neg Physical Exam Narrative GENERAL: Elderly white female patient currently not in acute distress. Awake and oriented 3. SKIN: Focused skin assessment warm/dry. HEAD: Atraumatic. Normocephalic. EYES: Pupils equal and round. No scleral icterus. No injection or drainage. ENT: No nasal bleeding or discharge. Mucous membranes pink and moist. NECK: Trachea midline. No JVD. CARDIOVASCULAR: Regular rate and rhythm. No murmur appreciated. RESPIRATORY: No accessory muscle use. Clear to auscultation. Breath sounds equal bilaterally. GASTROINTESTINAL: Abdomen soft, non-tender, nondistended. Hepatic and splenic margins not palpable. MUSCULOSKELETAL: No obvious deformities. No clubbing. No cyanosis. No edema. NEUROLOGICAL: Awake and alert. No obvious cranial nerve deficits. Motor grossly within normal limits. Normal speech. PSYCHIATRIC: Appropriate mood and affect; insight and judgment normal. EXTREMITIES: No clubbing, cyanosis, or there is notable erythema in bilateral lower leg areas with the left more extensive than the right. There is a perforation on the left lateral leg which is scabbed over with dark eschar. Tender to palpation in both legs. Data Data Last Documented VS Vital Signs Date Time Temp Pulse Resp B/P Pulse Ox O2 Delivery O2 Flow Rate FiO2 08/24/16 18:50 83 18 104/73 96 Nasal Cannula 4 08/24/16 17:04 97.8 Orders Complete Blood Count With Diff (08/24/16 17:09) Comprehensive Metabolic Panel (08/24/16 17:09) Prothrombin Time / Inr (Pt) (08/24/16 17:09) Act Partial Throm Time (Ptt) (08/24/16 17:09) Lactic Acid Sepsis Protocol (08/24/16 17:09) Blood Culture (08/24/16 17:09) Chest, Single Ap (08/24/16 17:09) Blood Glucose (08/24/16 17:09) Ecg Monitoring (08/24/16 17:09) Iv Access Insert/Monitor (08/24/16 17:09) Oximetry (08/24/16 17:09) Oxygen Administration (08/24/16 17:09) Us Leg Venous Doppler Bilat (08/24/16 17:09) B-Type Natriuretic Peptide (08/24/16 17:09) Vancomycin Inj (Vancomycin Inj) (08/24/16 18:40) Piperacil-Tazo 3.375 Gm Premix (Zosyn 3. (08/24/16 18:45) Admit Order (Ed Use Only) (08/24/16 19:25) Labs Laboratory Tests Test 08/24/16 08/24/16 17:15 17:31 White Blood Count 6.0 TH/MM3 Red Blood Count 4.02 MIL/MM3 Hemoglobin 11.0 GM/DL Hematocrit 34.1 % Mean Corpuscular Volume 84.8 FL Mean Corpuscular Hemoglobin 27.3 PG Mean Corpuscular Hemoglobin 32.2 % Concent Red Cell Distribution Width 22.4 % Platelet Count 185 TH/MM3 Mean Platelet Volume 8.7 FL Neutrophils (%) (Auto) 78.5 % Lymphocytes (%) (Auto) 8.7 % Monocytes (%) (Auto) 11.0 % Eosinophils (%) (Auto) 0.7 % Basophils (%) (Auto) 1.1 % Neutrophils # (Auto) 4.7 TH/MM3 Lymphocytes # (Auto) 0.5 TH/MM3 Monocytes # (Auto) 0.7 TH/MM3 Eosinophils # (Auto) 0.0 TH/MM3 Basophils # (Auto) 0.1 TH/MM3 CBC Comment DIFF FINAL Differential Comment Prothrombin Time 57.2 SEC Prothromb Time International 4.8 RATIO Ratio Activated Partial 44.8 SEC Thromboplast Time Sodium Level 137 MEQ/L Potassium Level 4.8 MEQ/L Chloride Level 97 MEQ/L Carbon Dioxide Level 36.1 MEQ/L Anion Gap 4 MEQ/L Blood Urea Nitrogen 42 MG/DL Creatinine 3.25 MG/DL Estimat Glomerular Filtration 19 ML/MIN Rate Random Glucose 64 MG/DL Calcium Level 9.0 MG/DL Total Bilirubin 0.7 MG/DL Aspartate Amino Transf 20 U/L (AST/SGOT) Alanine Aminotransferase 20 U/L (ALT/SGPT) Alkaline Phosphatase 107 U/L B-Type Natriuretic Peptide 233 PG/ML Total Protein 6.7 GM/DL Albumin 2.8 GM/DL Lactic Acid Level 2.1 mmol/L MDM Medical Decision Making Medical Screen Exam Complete: Yes Emergency Medical Condition: Yes Medical Record Reviewed: Yes Interpretation(s) Laboratory Tests Test 08/24/16 08/24/16 17:15 17:31 Red Blood Count 4.02 MIL/MM3 (4.50-5.90) Hemoglobin 11.0 GM/DL (13.0-17.0) Hematocrit 34.1 % (39.0-51.0) Red Cell Distribution Width 22.4 % (11.6-17.2) Neutrophils (%) (Auto) 78.5 % (16.0-70.0) Lymphocytes (%) (Auto) 8.7 % (9.0-44.0) Monocytes (%) (Auto) 11.0 % (0.0-8.0) Lymphocytes # (Auto) 0.5 TH/MM3 (1.0-4.8) Prothrombin Time 57.2 SEC (9.8-11.6) Activated Partial 44.8 SEC Thromboplast Time (24.3-30.1) Chloride Level 97 MEQ/L (98-107) Carbon Dioxide Level 36.1 MEQ/L (21.0-32.0) Anion Gap 4 MEQ/L (5-15) Blood Urea Nitrogen 42 MG/DL (7-18) Creatinine 3.25 MG/DL (0.60-1.30) Estimat Glomerular Filtration 19 ML/MIN (>89) Rate Random Glucose 64 MG/DL (74-106) B-Type Natriuretic Peptide 233 PG/ML (0-100) Albumin 2.8 GM/DL (3.4-5.0) Lactic Acid Level 2.1 mmol/L (0.4-2.0) Last 24 hours Impressions Chest X-Ray 08/24/16 9952 Signed Impressions: Service Date/Time: Wednesday, August 24, 2016 17:19 - CONCLUSION: Stable cardiomegaly. Indistinctness and fullness in the right hilar and infrahilar region may represent either a developing infiltrate or fluid overload. Benny Mckeon MD Differential Diagnosis Bilateral leg cellulitis versus dependent edema versus CHF versus DVT Narrative Course Lab work shows signs of shift and lactate elevation. IV antibiotics were initiated after blood cultures are drawn. At this point, my plan would be to admit the patient for further treatment. Ultrasound reveals no signs of DVT. Case is discussed with Dr. Benedict for admission. Sepsis Criteria Sepsis Criteria (SIRS+source): Infect source susp/known Severe Sepsis (+one): Lactate >2 Diagnosis Primary Impression: Cellulitis of leg Additional Impression: Sepsis affecting skin Admitting Information Admitting Physician Requests: it Alden Montanez MD Aug 24, 2016 17:22
[2016-08-24 17:33] LABS: AUTOMATED NEUTROPHIL # 4.7 TH/MM3 (1.8-7.7); BASOPHIL # 0.1 TH/MM3 (0-0.2); BASOPHIL % 1.1 % (0.0-2.0); EOSINOPHIL % 0.7 % (0.0-4.0); HEMATOCRIT 34.1 % (39.0-51.0); HEMO FLAGS DIFF FINAL; LYMPH % 8.7 % (9.0-44.0); LYMPHOCYTE # 0.5 TH/MM3 (1.0-4.8); MEAN CELL VOLUME 84.8 FL (80.0-100.0); MEAN CORPUSCULAR HEMOGLOBIN 27.3 PG (27.0-34.0); MEAN CORPUSCULAR HGB CONC 32.2 % (32.0-36.0); NEUT % 78.5 % (16.0-70.0); PLATELET COUNT 185 TH/MM3 (150-450); RED BLOOD COUNT 4.02 MIL/MM3 (4.50-5.90); RED CELL DISTRIBUTION WIDTH 22.4 % (11.6-17.2)
[2016-08-24] MEDS ORDERED: PLAV75TA29 PO (17:48)
[2016-08-24 18:01] LABS: APTT (PATIENT) 44.8 SEC (24.3-30.1); INTERNATIONAL NORMALIZED RATIO 4.8 RATIO; PROTHROMBIN TIME - PATIENT 57.2 SEC (9.8-11.6)
[2016-08-24 18:05] LABS: ANION GAP 4 MEQ/L (5-15); BICARBONATE 36.1 MEQ/L (21.0-32.0); BLOOD UREA NITROGEN 42 MG/DL (7-18); CHLORIDE 97 MEQ/L (98-107); GLOMERULAR FILTRATION RATE 19 ML/MIN (>89); POTASSIUM 4.8 MEQ/L (3.5-5.1); SODIUM (NA) 137 MEQ/L (136-145)
[2016-08-24 18:08] LABS: ALKALINE PHOSPHATASE 107 U/L (45-117); ALT (GPT) 20 U/L (12-78); AST (GOT) 20 U/L (15-37); TOTAL BILIRUBIN ADULT 0.7 MG/DL (0.2-1.0)
--- NOTE | 2016-08-24 18:09 | RADRPT ---
EXAM DATE/TIME: 08/24/2016 17:19 [facility] COMPARISON: CHEST SINGLE AP, July 17, 2016, 16:31. INDICATIONS : Short of breath, left leg swelling. MEDICAL HISTORY : Cardiovascular disease. Chronic obstructive pulmonary disease. SURGICAL HISTORY : CABG. Pacemaker. ENCOUNTER: Initial ACUITY: 3 days PAIN SCORE: 0/10 LOCATION: chest FINDINGS: The heart is enlarged, similar in severity to prior exam. Stable cardiac leads. Prior median sterno roberto. There is indistinctness of the bronchopulmonary markings of the right infrahilar region and pe rihilar region and suggestion of some peribronchial thickening. No focal infiltrate seen in the left lung. CONCLUSION: Stable cardiomegaly. Indistinctness and fullness in the right hilar and infrahilar region may repres ent either a developing infiltrate or fluid overload. Benny Mckeon MD on August 24, 2016 at 18:06 Board Certified Radiologist. This report was verified electronically.
[2016-08-24] MEDS ORDERED: VANCOMYCIN INJ 1,000 MG in SODIUM CHLOR 0.9% 250 ML INJ 250 ML IV STA (18:40)
[2016-08-24] MEDS ORDERED: PIPERACIL-TAZO 3.375 GM PREMIX 50 ML IV ONE (18:45)
[2016-08-24 18:50] VITALS: BP 104/73; PULSE 83; RESP 18; O2SAT 96
[2016-08-24 19:35] LABS: LACTIC ACID GHOST NOT REPORTABLE
[2016-08-24] MEDS ORDERED: ONDANSETRON HCL 4 MG/2 ML VIAL IVP PRN (19:45)
[2016-08-24] MEDS ORDERED: SODIUM CHLORIDE 0.9% FLUSH 10 ML FLUSH IV FLUSH PRN (19:45)
[2016-08-24] MEDS ORDERED: NALOXONE HCL 0.4 MG/ML AMP IV PRN (19:45)
--- NOTE | 2016-08-24 19:49 | RADRPT ---
EXAM DATE/TIME: 08/24/2016 18:17 [facility] COMPARISON: No previous studies available for comparison. INDICATIONS : Bilateral leg pain and swelling. MEDICAL HISTORY : Congestive heart failure. Gastroesophageal reflux disease. Chronic obstructive pulmonary disease. Hea ring loss. Cardiomyopathy. Coronay artery disease. Anticoagulant therapy. Hypercholesterolemia. Afib. Hypertension. Pneumonia. Sleep apnea. Hiatal hernia. Renal failure. Renal calculi. Arthritis. Gout. Prostate problems. Anxiety. Anemia. Measles. SURGICAL HISTORY : CABGCholecystectomy. Pacemaker. ENCOUNTER: Initial ACUITY: 1 week PAIN SCORE: 7/10 LOCATION: Bilateral legs. TECHNIQUE: Venous ultrasound of the left and right leg was performed from the inguinal ligament to the proximal calf. Real-time, color Doppler and spectral tracing, compression and augmentation techniques were us ed. FINDINGS: RIGHT LEG: There is normal compressibility of the deep venous system from the inguinal region to the proximal ca lf. No echogenic clot is seen in the lumen of the common femoral, femoral, popliteal, and posterior tibial veins. There is a normal response of the venous system to proximal and distal augmentation an d respiration. LEFT LEG: There is normal compressibility of the deep venous system from the inguinal region to the proximal ca lf. No echogenic clot is seen in the lumen of the common femoral, femoral, popliteal, and posterior tibial veins. There is a normal response of the venous system to proximal and distal augmentation an d respiration. CONCLUSION: The study is negative for deep venous thrombosis bilateral lower extremity. Benny Mckeon MD on August 24, 2016 at 19:46 Board Certified Radiologist. This report was verified electronically.
[2016-08-24] MEDS ORDERED: ALBUTEROL SULFATE 90 MCG/ACT HFA 18 GM INHALER INH PRN (20:00)
[2016-08-24] MEDS ORDERED: POLYETHYLENE GLYCOL 17 GM PKG PO PRN (20:00)
[2016-08-24] MEDS ORDERED: Vancomycin Consult Pharmacy 1 EA OTHER SCH (20:00)
[2016-08-24] MEDS ORDERED: VANCOMYCIN 500 MG/NS 100 ML IV ONE ×2 (21:00)
[2016-08-24] MEDS: BUDESONIDE-FORMOTEROL 160/4.5 MCG INHALER INH SCH (21:00)
[2016-08-24] MEDS: SODIUM CHLORIDE 0.9% FLUSH 10 ML FLUSH IV FLUSH SCH (21:00)
[2016-08-24] MEDS: ENOXAPARIN SODIUM 30 MG/0.3 ML SYRINGE SQ SCH ×2 (22:53→23:00)
[2016-08-24] MEDS: clonazePAM 1 MG TAB PO SCH (22:54)
[2016-08-24] MEDS: CARVEDILOL 3.125 MG TAB PO SCH (22:54)
[2016-08-24] MEDS: POTASSIUM CHLORIDE 20 MEQ CONTROLLED RELEASE TAB PO SCH (22:54)
[2016-08-24 22:57] VITALS: BP 104/58; PULSE 68; RESP 18; TEMP 98.4; O2SAT 94
[2016-08-25 01:52] VITALS: BP 106/62; PULSE 85; RESP 18; TEMP 97.4; O2SAT 21
[2016-08-25] MEDS: PIPERACIL-TAZO 2.25 GM PREMIX 50 ML IV SCH ×4 (02:00→21:51)
--- NOTE | 2016-08-25 04:28 | MB ---
cc: KARNY KUO MD DATE OF CONSULTATION: 08/24/2016 REASON FOR CONSULTATION: Elevated BUN and creatinine for evaluation. HISTORY OF PRESENT ILLNESS This is 75 year-old male with past medical history of chronic lung disease, chronic kidney disease, history of cardiomyopathy with atrial fibrillation, obstructive sleep apnea, restrictive lung disease with interstitial fibrosis, came to the hospital with complaint with swelling and redness of the left leg. I was called to see the patient because of elevated BUN and creatinine. The patient has a history of chronic kidney disease. He [place] green building [place] and [place] to him his creatinine most of the time it stays 2 to 3, and sometimes it has gone up to as high as 4. Looking back it seems like his creatinine in June of this year was around 2.3 to 2.6. At that time he was admitted here, although he was not seen by any green building materials distributor but he was seen by the mold finisher and ornamental ironworker helper. The patient mainly came here today because of the swelling and redness of the left leg which he has noticed going on for the last 2-3 weeks. He has small laceration in the left dailey area for which he has home health care and wound care coming to his home and doing the dressing, but he noticed that there is more swelling, more redness and more pain, so he decided to come to the hospital. There is no history of trauma. There is no history of fever. He has mild shortness of breath which is chronic. There is no chest pain, no dysuria, no hematuria. No difficulty in passing urine. PAST MEDICAL HISTORY: 1. Restrictive lung disease 2. Chronic kidney disease. 3. Ischemic heart disease and cardiomyopathy 4. Sleep apnea 5. Atrial fibrillation 6. Chronic anemia. PAST SURGICAL HISTORY 1. History of multiple cardiac catheterizations with angioplasty and stent placement 2. Cholecystectomy 3. History of coronary artery bypass grafting in 1990, the second in 1996. 4. AICD placement, MILAGROS and cardioversion. SOCIAL HISTORY The patient is lives with his . There is no history of smoking or alcoholism. FAMILY HISTORY: Noncontributory. ALLERGIES He has allergy to multiple medication including: AMBIEN DECADRON STATINS HYDROCODONE. MEDICATIONS Currently he is on following medications: 1. Symbicort 2 puffs inhalation b.i.d. 2. Carvedilol 3.125 mg b.i.d. 3. Potassium chloride 80 milligrams b.i.d. 4. Bumex 1 milligram twice a day. 5. Plavix 75 mg once a day. 6. Multivitamin 1 tablet daily. 7. Spiriva 18 mcg inhalation. 8. Vitamin B and C complex. 9. Protonix 40 mg once a day. 10. Isosorbide 60 mg daily 11. Magnesium oxide 400 milligrams once a day. 12. Requip 3 milligrams q hs. 13. Klonopin 2 milligrams q hs. 14. Warfarin 1 milligram on Friday and Friday. 15. Amiodarone 100 milligrams Friday, Friday and Friday. 16. Colchicine 0.6 milligrams Friday, Friday and Friday. 17. Lovenox 30 milligrams subcu q24 hours. 18. Zosyn 2.25 grams IV q6 hours. 19. Vancomycin, he received one dose. 20. Metolazone 2.5 milligrams Friday and . 21. Warfarin 2 milligrams five days a week. 22. Tylenol and Zofran as needed. 23. Morphine as needed. PHYSICAL EXAMINATION: The patient is awake and alert. He is not in acute distress. VITAL SIGNS: His last blood pressure is 104/58, temperature 98.4, oxygen saturation 94 to 96%. HEENT: Pupils equal and reacting to light. Nonicteric sclera. Conjunctivae pale. Neck: Supple. JVD is not elevated. Lungs: The patient has bilateral decreased air entry with basilar rales and scattered wheezing. Heart: S1-S2 irregular rhythm. Abdomen: Soft, lax. There is no tenderness. Bowel sounds positive. Extremities: He has bilateral 2+ edema more on the left side and left 3/4 of the leg is having redness and some increased temperature. LABORATORY DATA: WBC count is 6.0, hemoglobin 11.0, platelet count 185, neutrophils 78.5%, sodium is 137. Potassium 4.84. Bicarb 36.1, BUN 42, creatinine 3.25, glucose 64. Lactic acids 2.5, it was 2.1, AST, ALT normal, alkaline phosphatase 107, total protein is 6.7. Albumin of 2.8, INR is 4.8. Urinalysis showing there is no protein this was done in June. IMAGING STUDIES The patient had chest x-ray done which shows stable cardiomegaly, fullness in the right hilar and infrahilar region. Ultrasound of the lower extremities done and it shows that he has no deep vein thrombosis. ASSESSMENT/PLAN 1. Cellulitis of left leg. 2. Congestive heart failure and fluid overload. 3. Chronic kidney disease with some acute worsening. 4. Atrial fibrillation 5. History of chronic lung disease. The patient has multiple comorbid conditions. He had some hypotension during his last admission but this time it seems like the blood pressure has been controlled. He has no proteinuria, most likely he has hypertension or renal vascular disease. I will get the ultrasound of the kidneys. He is currently on Bumex and potassium supplement. Will continue that and follow the urine output and the BUN and creatinine. Will continue antibiotics, avoid nephrotoxins. The patient has been followed by green building materials distributor [place], so he most likely has all the workup done, so I am not going to do the extensive workup as renal failure. Will get ultrasound of the kidneys. Continue the diuretics. Thank you for the consultation. I will follow while in the hospital. MD NIMA Aguilar/KYAW /11:11 PM /3:45 AM
[2016-08-25 05:18] VITALS: BP 108/58; PULSE 78; RESP 21; TEMP 98.4; O2SAT 96
[2016-08-25] MEDS: ISOSORBIDE MONONITRATE 60 MG TAB PO SCH (05:54)
[2016-08-25 08:00] VITALS: BP 93/58; PULSE 82; RESP 16; TEMP 97.8; O2SAT 97
[2016-08-25 08:01] LABS: AUTOMATED NEUTROPHIL # 4.9 TH/MM3 (1.8-7.7); BASOPHIL % 0.6 % (0.0-2.0); EOSINOPHIL # 0.1 TH/MM3 (0-0.4); HEMATOCRIT 35.1 % (39.0-51.0); HEMO FLAGS DIFF FINAL; LYMPH % 11.5 % (9.0-44.0); LYMPHOCYTE # 0.7 TH/MM3 (1.0-4.8); MEAN CELL VOLUME 84.5 FL (80.0-100.0); MEAN CORPUSCULAR HEMOGLOBIN 27.8 PG (27.0-34.0); MEAN CORPUSCULAR HGB CONC 32.9 % (32.0-36.0); MONO % 8.8 % (0.0-8.0); NEUT % 78.1 % (16.0-70.0); PLATELET COUNT 206 TH/MM3 (150-450); RED BLOOD COUNT 4.15 MIL/MM3 (4.50-5.90); RED CELL DISTRIBUTION WIDTH 22.4 % (11.6-17.2); WHITE BLOOD COUNT 6.2 TH/MM3 (4.0-11.0)
[2016-08-25 08:04] LABS: INTERNATIONAL NORMALIZED RATIO 4.2 RATIO; PROTHROMBIN TIME - PATIENT 49.4 SEC (9.8-11.6)
[2016-08-25] MEDS: CARVEDILOL 3.125 MG TAB PO SCH ×2 (08:07→21:53)
[2016-08-25] MEDS: VITAMIN B COMPLEX/VIT C TAB PO SCH (08:08)
[2016-08-25] MEDS: PANTOPRAZOLE SOD 40 MG DELAYED RELEASE TAB PO SCH (08:08)
[2016-08-25] MEDS: MAGNESIUM OXIDE 400 MG TAB PO SCH (08:08)
[2016-08-25] MEDS: BUMETANIDE 1 MG TAB PO SCH ×2 (08:08→17:38)
[2016-08-25] MEDS: MULTIVITAMIN TAB PO SCH (08:08)
[2016-08-25] MEDS: POTASSIUM CHLORIDE 20 MEQ CONTROLLED RELEASE TAB PO SCH ×2 (08:09→21:00)
[2016-08-25] MEDS: SODIUM CHLORIDE 0.9% FLUSH 10 ML FLUSH IV FLUSH SCH ×2 (08:09→21:51)
[2016-08-25] MEDS: BUDESONIDE-FORMOTEROL 160/4.5 MCG INHALER INH SCH ×2 (08:12→21:53)
[2016-08-25 08:40] LABS: ALKALINE PHOSPHATASE 109 U/L (45-117); ALT (GPT) 21 U/L (12-78); ANION GAP 9 MEQ/L (5-15); AST (GOT) 23 U/L (15-37); BICARBONATE 31.6 MEQ/L (21.0-32.0); BLOOD UREA NITROGEN 40 MG/DL (7-18); CHLORIDE 97 MEQ/L (98-107); DIGOXIN 1.2 NG/ML (0.8-2.0); GLOMERULAR FILTRATION RATE 19 ML/MIN (>89); POTASSIUM 5.1 MEQ/L (3.5-5.1); SODIUM (NA) 138 MEQ/L (136-145); TOTAL BILIRUBIN ADULT 0.9 MG/DL (0.2-1.0)
[2016-08-25] MEDS ORDERED: CLOPIDOGREL 75 MG TAB PO SCH (09:00)
[2016-08-25] MEDS: TIOTROPIUM BROMIDE 18 MCG INH INH SCH (09:00)
[2016-08-25] MEDS ORDERED: NON-FORMULARY DRUG (Coenzyme Q10 (Ubidecarenone) (Coq-10) 100 MG) PO SCH (09:00)
[2016-08-25] MEDS: CLOPIDOGREL 75 MG TAB PO SCH (09:00)
--- NOTE | 2016-08-25 09:21 | RADRPT ---
EXAM DATE/TIME: 08/25/2016 07:20 [place] COMPARISON: No previous studies available for comparison. INDICATIONS : Increased BUN/creatinine. MEDICAL HISTORY : Congestive heart failure. Hypercholesterolemia. Arthritis. Cardiomyopathy. CAD. Chest pain. A-fib. HTN. COPD. Pneumonia. Sleep apnea. Dyspnea. Hiatal hernia. GERD. Renal failure. R enal calculi. Gout. Anxiety. Anemia. Anticoagulant therapy. SURGICAL HISTORY : CABG. Pacemaker. Cholecystectomy. ENCOUNTER: Initial ACUITY: 2 days PAIN SCORE: 0/10 LOCATION: Bilateral flank MEASUREMENTS: RIGHT KIDNEY: 9.9 x 4.7 x 4.3 cm LEFT KIDNEY: 9.8 x 4.4 x 5.8 cm FINDINGS: RIGHT KIDNEY: The right kidney is small echogenic without mass or hydronephrosis. LEFT KIDNEY: The left kidney is small with echogenic cortex. There is no hydronephrosis. The is a 5 cm cyst. BLADDER: Within normal limits given the degree of distension. CONCLUSION: 1. 5 cm left renal cyst. 2. Small echogenic kidneys without hydronephrosis. Bryant Gonzales MD FACR on August 25, 2016 at 9:15 Board Certified Radiologist. This report was verified electronically.
--- NOTE | 2016-08-25 09:43 | HHI.HP ---
HPI Service [facility] Primary Care Physician Paul Reyez M.D. Admission Diagnosis bilateral leg cellulitis, sepsis Diagnoses: Chief Complaint: leg swelling and tenderness (Marlee Choi) Travel History International Travel<30 Days: No Contact w/Intl Traveler <30 Da: No Traveled to Known Affected Are: No (Marlee Choi) History of Present Illness This is a pleasant 75-year-old white male with significant past medical history of CAD, cardiomyopathy, chronic kidney disease stage IV, restrictive lung disease and interstitial fibrosis, oxygen dependent, obstructive sleep apnea, chronic A. fib, AICD, cardiac cath in 2016 with stent placement. Patient is a part-time resident in the area, the rest of the year he lives in [facility]. Recently admitted for COPD exacerbation secondary to fibrosis, asbestos exposure. Pt. presented to ED for complaint of leg swelling, tenderness, redness. Initially both legs but now more on the leg. Had a cut to left leg that was oozing clear fluid. Denies any fever and chills. Had made appointment with PCP for next week but the leg pain became severe therefore he presented to ED. He is not sure how he hurt his leg. He is on oxygen, 24/7. Patient chronically short of breath, no chest pain. Laboratory workup was sent in the emergency room, he was noted with acute on chronic kidney disease, BUN 42 , creatinine 3.25. Lactic acid elevated, 2.1, repeat 2.5. WBC stable, 6. INR 4.2., Patient on Coumadin. Chest x-ray was completed, no significant findings. Ultrasound of the legs was negative for DVT. Last Impressions Renal Ultrasound 08/25/16 0000 Signed Impressions: Service Date/Time: Thursday, August 25, 2016 07:20 - CONCLUSION: 1. 5 cm left renal cyst. 2. Small echogenic kidneys without hydronephrosis. Bryant Gonzales MD FACR Lower Extremity Ultrasound 08/24/16 312 Signed Impressions: Service Date/Time: Wednesday, August 24, 2016 18:17 - CONCLUSION: The study is negative for deep venous thrombosis bilateral lower extremity. Benny Mckeon MD Chest X-Ray 08/24/16 [id number] Signed Impressions: Service Date/Time: Wednesday, August 24, 2016 17:19 - CONCLUSION: Stable cardiomegaly. Indistinctness and fullness in the right hilar and infrahilar region may represent either a developing infiltrate or fluid overload. Benny Mckeon MD Blood cultures were obtained, empiric antibiotics were started. Nephrology has been consulted, patient was evaluated by Dr. Ly. Pt. on Bumex and Zaroxolyn. Pt. states he has been drinking a lot of water, leg swelling is increased. Although the left leg is larger than the right. He is noted with perioral and fingertip cyanosis which is chronic. Doesn't appear in any distress. Pt. admitted for further evaluation and treatment. (Marlee Choi) Review of Systems ROS Limitations: Poor Historian Cardiovascular: COMPLAINS OF: Dyspnea on Exertion, Lower Extremity Edema Integumentary: COMPLAINS OF: Abnormal pigmentation (Marlee Choi) Past Family Social History Past Medical History Coronary artery disease A. fib Chronic kidney disease stage IV COPD AICD, originally placed 2012 Multiple cardiac catheterizations Hyperlipidemia Asbestosis Cardiomegaly Bibasilar interstitial fibrosis Severe restrictive disease Gout Hypertension GERD Had hiatal hernia CHF Restless leg syndrome Loss of hearing Angina Blepharitis Anxiety depression Obstructive sleep apnea Chronic anemia Kidney stones Gynecomastia EF 40-50% per echo in 2012 Previous blood transfusions cardiac cath and stent Summer 2015 after he went back to [place] asbestos exposure recent admission 07/17 for COPD exacerbation, hypoxia, poss. CHF Past Surgical History Angioplasty 1989 Multiple cardiac catheterization Cholecystectomy MILAGROS and cardioversion in 1999, 2006, 2008 CABG 5 in 1990 CABG 5 in 1996 Defibrillator placement Reported Medications Reported Meds & Active Scripts Active Coreg (Carvedilol) 3.125 Mg Tab 3.125 Mg PO BID 30 Days Bumetanide 1 Mg Tab 1 Mg PO BID@,18 30 Days Reported Plavix (Clopidogrel Bisulfate) 75 Mg Tab 75 Mg PO DAILY Isosorbide Mononitrate ER (Isosorbide Mononitrate) 60 Mg Tab 60 Mg PO DAILY Symbicort Inh (Budesonide/Formoterol Fumarate) 160-4.5 Mcg/Act Aero 2 Puff INH BID Spiriva Handihaler (Tiotropium Inh) 18 Mcg Cap 18 Mcg INH DAILY 1 capsule = 18 mcg Coq-10 (Coenzyme Q10 (Ubidecarenone)) 100 Mg Cap 100 Mg PO DAILY Multi Vitamin (Multiple Vitamin) 1 Tab Tab 1 Tab PO DAILY Vitamin B Complex (B-Complex Vitamins) 1 Tab 1 Tab PO DAILY Miralax Powder (Polyethylene Glycol 3350 Powder) 17 Gm Powd 17 Gm PO DAILY PRN Mix and dissolve one measuring capful (17 grams) in water or juice. Coumadin (Warfarin) 2 Mg Tab 1 Mg PO MOFR Take 1/2 tablet (1mg) daily in the pm on Friday and Friday Potassium Chloride ER (Potassium Chloride) 20 Meq Tab 80 Meq PO BID Morphine Liq (Morphine Sulfate) 20 Mg/Ml Liq 10 Mg SL Q3H PRN Give (0.5 ml)for severe pain/shortness of breath Requip (Ropinirole) 3 Mg Tab 3 Mg PO HS Plavix (Clopidogrel Bisulfate) 75 Mg Tab 75 Mg PO DAILY Nexium (Esomeprazole DR) 40 Mg Capdr 40 Mg PO DAILY Metolazone 2.5 Mg Tab 2.5 Mg PO SUTH Take 1 tablet (2.5mg) 30 minutes before taking Bumex on Friday and Magnesium 400 Mg Tab 400 Mg PO DAILY Digoxin 0.125 Mg Tab 0.125 Mg PO MOWEFR Take 1 tablet (0.125mg) daily on Friday,Friday and Friday Crestor (Rosuvastatin Calcium) 10 Mg Tab 10 Mg PO HS Coumadin (Warfarin) 2 Mg Tab 2 Mg PO SUTUWETHSA Take 1 tablet (2mg) daily in the pm on Friday,Friday,Friday, and Friday Colchicine 0.6 Mg Tab 0.6 Mg PO MOWEFR Take 1 tablet (0.6mg) daily on Friday,Friday and Friday Clonazepam 2 Mg Tab 2 Mg PO HS Amiodarone (Amiodarone HCl) 200 Mg Tab 100 Mg PO MOWEFR Take 1/2 tablet (100mg) daily on Friday,Friday and Friday Ventolin Hfa 18 GM Inh (Albuterol Sulfate) 90 Mcg/Act Aer 2 Puff INH BID PRN ( Marlee Choi) Allergies: Coded Allergies: Ambien (Unverified Allergy, Mild, 08/24/16) Decadron (Verified Allergy, Unknown, 08/24/16) "steroid psychosis" HMG-CoA Reductase Inhibitors (Verified Allergy, Unknown, 08/24/16) muscle pain Hydrocodone (Verified Allergy, Unknown, 08/24/16) chest pain Active Ordered Medications Inpatient Medications Acetaminophen (Tylenol) 650 mg Q4H PRN PO TEMP > 100.4; Start 08/24/16 at 19:45 Albuterol Sulfate (Ventolin Hfa Inh) 2 puff BID PRN INH SHORTNESS OF BREATH; Start 08/24/16 at 20:00 Amiodarone HCl (Cordarone) 100 mg MOWEFR PO ; Start 08/26/16 at 20:00 Budesonide/ Formoterol Fumarate (Symbicort 160-4.5 Inh) 2 puff BID INH Last administered on 08/25/16 08:12; Start 08/24/16 at 21:00 Bumetanide (Bumetanide) 1 mg BID@09,18 PO Last administered on 08/25/16 08:08; Start 08/25/16 at 09:00 Carvedilol (Coreg) 3.125 mg BID PO Last administered on 08/25/16 08:07; Start 08/24/16 at 21:00 Clonazepam (KlonoPIN) 2 mg HS PO Last administered on 08/24/16 22:54; Start 08/24/16 at 21:00 Clopidogrel Bisulfate (Plavix) 75 mg DAILY PO ; Start 08/25/16 at 09:00; Stop 08/25/16 at 09:00; Status DC Colchicine (Colchicine) 0.6 mg MOWEFR PO ; Start 08/26/16 at 20:00 Enoxaparin Sodium (Lovenox Inj) 30 mg Q24H SQ ; Start 08/24/16 at 21:00 Isosorbide Mononitrate (Imdur) 60 mg DAILY@06 PO Last administered on 08/25/16 05:54; Start 08/25/16 at 06:00 Magnesium Oxide (Mag-Ox) 400 mg DAILY PO NS Last administered on 08/25/16 08:08 ; Start 08/25/16 at 09:00 Metolazone (Zaroxolyn) 2.5 mg SUTH PO ; Start 08/25/16 at 20:00 Morphine Sulfate (Roxanol Liq) 10 mg Q3H PRN SL PAIN SCALE 6 TO 10; Start 08/24 at 20:00 Multivitamins (Theragran) 1 tab DAILY PO Last administered on 08/25/16 08:08; Start 08/25/16 at 09:00 Naloxone HCl 0.4 mg 0.4 mg UNSCH PRN IV SEE LABEL COMMENTS; Start 08/24/16 at 19 :45 Non-Formulary Medication 100 mg DAILY PO ; Start 08/25/16 at 09:00; Stop 08/25/16 at 09:00; Status DC Ondansetron HCl (Zofran Inj) 4 mg Q6H PRN IVP NAUSEA OR VOMITING; Start at 19:45 Pantoprazole Sodium (Protonix) 40 mg DAILY PO Last administered on 08/25/16 08: 08; Start 08/25/16 at 09:00 Patient Medication Teaching 1 1 ONCE ONCE OTHER ; Start 08/24/16 at 16:00; Stop 08/24/16 at 20:21; Status DC Patient Own Medication PT OWN MED: Rosuvastatin (Crest... HS PO CM; Start at 21:00; Status Hold Pharmacy Profile Note (Vancomycin Consult Pharmacy) 0 ml @ 0 mls/hr UNSCH OTHER ; Start 08/24/16 at 20:00 Piperacillin Sod/ Tazobactam Sod 50 ml @ 100 mls/hr Q6H IV Last administered on 08/25/16 08:07; Start 08/25/16 at 02:00 Piperacillin Sod/ Tazobactam Sod (Zosyn 3.375 Gm Premix) 50 ml @ 100 mls/hr ONCE ONCE IV Last administered on 08/24/16 18:49; Start 08/24/16 at 18:45; Stop 08/24/16 at 19:14; Status DC Polyethylene Glycol (Miralax) 17 gm DAILY PRN PO CONSTIPATION; Start 08/24/16 at 20:00 Potassium Chloride (KCl) 80 meq BID PO Last administered on 08/25/16 08:09; Start 08/24/16 at 21:00 Ropinirole HCl (Requip) 3 mg HS PO Last administered on 08/25/16 01:47; Start 08/24/16 at 21:00 Sodium Chloride (NS Flush) 2 ml BID IV FLUSH Last administered on 08/25/16 08: 09; Start 08/24/16 at 21:00 Tiotropium Enterprise (Spiriva Inh) 18 mcg DAILY INH ; Start 08/25/16 at 09:00 Vancomycin HCl 1000 mg/Sodium Chloride 250 ml @ 250 mls/hr ONCE STAT IV Last administered on 08/24/16 19:40; Start 08/24/16 at 18:40; Stop 08/24/16 at 19:39; Status DC Vancomycin HCl/ Sodium Chloride (Vancomycin Inj/ NS Inj) 100 ml @ 200 mls/hr ONCE ONCE IV Last administered on 08/25/16 01:48; Start 08/24/16 at 21:00; Stop 08/24/16 at 21:30; Status DC Vitamin B Complex/ Vitamin C (Allbee C) 1 tab DAILY PO Last administered on 08/25 08:08; Start 08/25/16 at 09:00 Warfarin Sodium (Coumadin) 2 mg SuTuWeThSa@16 PO ; Start 08/25/16 at 16:00 Family History Positive for history of coronary artery disease Social History Patient is , 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 Has grown children. Has never smoked, no alcohol, no illegal drug use. (Marlee Choi) Physical Exam Vital Signs Vital Signs Date Time Temp Pulse Resp B/P Pulse Ox O2 Delivery O2 Flow Rate FiO2 08/25/16 08:00 97.8 82 16 93/58 97 08/25/16 05:18 98.4 78 21 108/58 96 08/25/16 01:52 97.4 85 18 106/62 21 08/24/16 22:57 98.4 68 18 104/58 94 08/24/16 18:50 83 18 104/73 96 Nasal Cannula 4 08/24/16 17:16 97 Nasal Cannula 4 08/24/16 17:16 97 4 08/24/16 17:08 84 18 96/56 97 Nasal Cannula 4 08/24/16 17:04 97.8 84 19 96/56 95 Physical Exam GENERAL: This is a well-nourished, well-developed patient, chronically ill- appearing male. SKIN: Bilateral lower extremities with pretibial erythema, left greater than right. Laceration noted to left anterior dailey, crusted over, healing. No oozing noted. Both legs tender to palpation. Nailbeds cyanotic, clubbing noted. HEAD: Atraumatic. Normocephalic. No temporal or scalp tenderness. EYES: Pupils equal round and reactive. Extraocular motions intact. No scleral icterus. No injection or drainage. ENT: Nose without bleeding, purulent drainage or septal hematoma. Throat without erythema, tonsillar hypertrophy or exudate. Uvula midline. Airway patent. Lips cyanotic NECK: Trachea midline. No JVD or lymphadenopathy. Supple, nontender, no meningeal signs. CARDIOVASCULAR: Regular rate and rhythm with 1/6 murmurs, gallops, or rubs. RESPIRATORY: Diminished, poor inspiratory effort. GASTROINTESTINAL: Abdomen soft, non-tender, nondistended. No hepato-splenomegaly , or palpable masses. No guarding. MUSCULOSKELETAL: Extremities without clubbing, cyanosis. Bilateral lower extremity edema, +2, left greater than right. Chronic venous discoloration. No joint tenderness, effusion, or edema noted. No calf tenderness. Negative Homans sign bilaterally. NEUROLOGICAL: Awake and alert. Cranial nerves II through XII intact. Motor and sensory grossly within normal limits. Five out of 5 muscle strength in all muscle groups. Normal speech. Laboratory Laboratory Tests Test 08/24/16 08/24/16 08/24/16 08/25/16 17:15 17:31 20:26 06:35 White Blood Count 6.0 6.2 Red Blood Count 4.02 4.15 Hemoglobin 11.0 11.6 Hematocrit 34.1 35.1 Mean Corpuscular Volume 84.8 84.5 Mean Corpuscular Hemoglobin 27.3 27.8 Mean Corpuscular Hemoglobin 32.2 32.9 Concent Red Cell Distribution Width 22.4 22.4 Platelet Count 185 206 Mean Platelet Volume 8.7 9.1 Neutrophils (%) (Auto) 78.5 78.1 Lymphocytes (%) (Auto) 8.7 11.5 Monocytes (%) (Auto) 11.0 8.8 Eosinophils (%) (Auto) 0.7 1.0 Basophils (%) (Auto) 1.1 0.6 Neutrophils # (Auto) 4.7 4.9 Lymphocytes # (Auto) 0.5 0.7 Monocytes # (Auto) 0.7 0.6 Eosinophils # (Auto) 0.0 0.1 Basophils # (Auto) 0.1 0.0 CBC Comment DIFF FINAL DIFF FINAL Differential Comment Prothrombin Time 57.2 49.4 Prothromb Time International 4.8 4.2 Ratio Activated Partial 44.8 Thromboplast Time Sodium Level 137 138 Potassium Level 4.8 5.1 Chloride Level 97 97 Carbon Dioxide Level 36.1 31.6 Anion Gap 4 9 Blood Urea Nitrogen 42 40 Creatinine 3.25 3.16 Estimat Glomerular Filtration 19 19 Rate Random Glucose 64 77 Calcium Level 9.0 9.3 Total Bilirubin 0.7 0.9 Aspartate Amino Transf 20 23 (AST/SGOT) Alanine Aminotransferase 20 21 (ALT/SGPT) Alkaline Phosphatase 107 109 B-Type Natriuretic Peptide 233 Total Protein 6.7 7.0 Albumin 2.8 2.9 Lactic Acid Level 2.1 2.5 Digoxin Level 1.2 Date/Time Procedure Status Source Growth 08/24/16 17:30 Aerobic Blood Culture Received Blood Peripheral Pending 08/24/16 17:30 Anaerobic Blood Culture Received Blood Peripheral Pending (Marlee Choi) Result Diagram: 08/25/16 0635 08/25/16 0635 Imaging Last Impressions Lower Extremity Ultrasound 08/24/161708 Signed Impressions: Service Date/Time: Wednesday, August 24, 2016 18:17 - CONCLUSION: The study is negative for deep venous thrombosis bilateral lower extremity. Benny Mckeon MD Chest X-Ray 08/24/161708 Signed Impressions: Service Date/Time: Wednesday, August 24, 2016 17:19 - CONCLUSION: Stable cardiomegaly. Indistinctness and fullness in the right hilar and infrahilar region may represent either a developing infiltrate or fluid overload. Benny Mckeon MD (Marlee Choi) Assessment and Plan Problem List: (1) Sepsis affecting skin (2) Cellulitis of leg (3) CKD (chronic kidney disease) stage 4, GFR 15-29 ml/min (4) Systolic CHF, acute on chronic (5) Interstitial fibrosis (6) Obstructive sleep apnea (7) Cardiomyopathy (8) Hypertension (9) Supratherapeutic INR (10) COPD exacerbation (11) Hypoxia (12) CAD (coronary artery disease) (13) Hx of CABG Assessment and Plan Admit to Dr. Benedict 75-year-old male with significant past medical history of this CHF, chronic kidney disease, interstitial fibrosis, COPD, CAD and stents. Patient presented to emergency room with leg tenderness, erythema, oozing from laceration to the left chin. Ultrasound negative for DVT. Also with findings of acute on chronic CHF exacerbation. Bilateral leg cellulitis -Continue with antibiotics Follow cultures COPD, hypoxia, history of fibrosis Continue with oxygen at 2 L DuoNeb's as needed Acute on chronic CHF exacerbation, Echocardiogram 2016, showed EF of 35-40%. Patient has AICD -Change Bumex to 1 mg by mouth twice a day -Continue with Zaroxolyn -Monitor intake and output Limit fluid to 1200 cc Chronic kidney disease stage IV, slight increase in creatinine. Urine output marginal. Monitor renal function closely Avoid nephrotoxic agents -Nephrology following Renal ultrasound results noted, no obstruction. Coronary artery disease with recent stent, Continue to monitor Continue home medications Chronic A. fib, on Coumadin. Supratherapeutic INR Coumadin on hold, INR elevated. Follow INR daily -Continue with carvedilol, amiodarone, digoxin -Continuous cardiac telemetry Hyperlipidemia Continue with home medications History of gout, stable Continue with home medications Home medications reviewed, initiated as indicated For DVT prophylaxis, we'll continue Coumadin when INR back to normal. Protonix for GI prophylaxis Plan of care has been discussed with the patient, attending and registered nurse. Further management of the patient will be dependent on the hospital course This patient was seen by myself and Dr. Benedict, this H&P is written on her behalf (Marlee Choi) Assessment and Plan Patient seen and examined [id number] time spent with patient chart reviewed Labs reviewed Medications reviewed Discussed with MIDDLEWARE SYSTEMS ARCHITECT about plan of care Discussed with RN Discussed with patient and (Cheko Benedict MD) Physician Certification 2 Midnight Certification Type: Admission for Inpatient Services Order for Inpatient Services The services are ordered in accordance with Medicare regulations or non- Medicare payer requirements, as applicable. In the case of services not specified as inpatient-only, they are appropriately provided as inpatient services in accordance with the 2-midnight benchmark. Estimated LOS (days): 2 2 days is the estimated time the patient will need to remain in the hospital, assuming treatment plan goals are met and no additional complications. Post-Hospital Plan: Home Health (Marlee Choi) Problem Qualifiers (1) Cellulitis of leg: Qualified Code: L03.116 - Cellulitis of left lower extremity (2) Cardiomyopathy: Qualified Code: I42.9 - Cardiomyopathy, unspecified type (3) Hypertension: Qualified Code: I10 - Essential hypertension (4) CAD (coronary artery disease): Qualified Code: I25.10 - Coronary artery disease involving [place] coronary artery of [place] heart without angina pectoris Marlee Choi Aug 25, 2016 09:43 Cheko Benedict MD Aug 25, 2016 15:41
[2016-08-25] MEDS ORDERED: RESP: ALBUTEROL 2.5 MG/IPRATROPIUM 0.5 MG NEB (PRN) NEB (09:45)
[2016-08-25 12:00] VITALS: BP 92/57; PULSE 81; RESP 16; TEMP 97.4; O2SAT 95
--- NOTE | 2016-08-25 13:01 | HHI.NPPN ---
Subjective History of Present Illness 75 year-old male with past medical history of chronic lung disease, chronic kidney disease, history of cardiomyopathy with atrial fibrillation, obstructive sleep apnea, restrictive lung disease with interstitial fibrosis, came to the hospital with complaint with swelling and redness of the left leg. I was called to see the patient because of elevated BUN and creatinine. The patient has a history of chronic kidney disease. He has been followed by his mechanical detailer up [place]. Additional Remarks Patient is alert, feeling better, has nasal cannula, pain in left leg on standing. Review of Systems General Constitutional: Fatigue Cardiovascular Cardiac: Edema, MANZO Objective Data Data 08/24/16 08/25/16 19:00 07:00 Intake Total 630 ml Output Total 200 ml Balance 430 ml Intake Oral 480 ml IV Total 150 ml Output Urine Total 200 ml # Voids 1 # Bowel Movements 0 Vital Signs Date Time Temp Pulse Resp B/P Pulse Ox O2 Delivery O2 Flow Rate FiO2 08/25/16 12:00 97.4 81 16 92/57 95 08/25/16 08:00 97.8 82 16 93/58 97 08/25/16 05:18 98.4 78 21 108/58 96 08/25/16 01:52 97.4 85 18 106/62 21 08/24/16 22:57 98.4 68 18 104/58 94 08/24/16 18:50 83 18 104/73 96 Nasal Cannula 4 08/24/16 17:16 97 Nasal Cannula 4 08/24/16 17:16 97 4 08/24/16 17:08 84 18 96/56 97 Nasal Cannula 4 08/24/16 17:04 97.8 84 19 96/56 95 -: 08/25/16 0635 08/25/16 0635 Microbiology 08/24/16 Aerobic Blood Culture - Preliminary, Resulted NO GROWTH IN 1 DAY 08/24/16 Anaerobic Blood Culture - Preliminary, Resulted NO GROWTH IN 1 DAY 08/24/16 Aerobic Blood Culture - Preliminary, Resulted NO GROWTH IN 1 DAY 08/24/16 Anaerobic Blood Culture - Preliminary, Resulted NO GROWTH IN 1 DAY Physical Exam General Appearance: No Acute Distress, Comfortable Eyes Eye Exam: Pupils Equal Throat Throat Exam: Oral Mucosa [place] & Moist Pulmonary Resp Exam: Breath Sounds Equal, No Distress, Rhonchi, Decreased Bases, Diminished Breath Sounds Cardiology CV Exam: Regular, Normal Sinus Rhythm Gastrointestinal/Abdomen GI Exam: Soft, Non-Tender, Bowel Sounds Present, Non-Distended Extremeties Extremities Exam: Moderate Edema (Has redness lowere 1/2 of left leg) Neurologic Neuro Exam: Alert, Awake, Oriented Psychiatric Psych Exam: Appropriate Responses Assessment/Plan Assessment Summary: CHF, Hypertension, CKD Stage IV Problem List: (1) Obstructive sleep apnea (2) Cardiomyopathy (3) Hypertension (4) Low blood pressure (5) Interstitial fibrosis (6) Systolic CHF, acute on chronic (7) CKD (chronic kidney disease) stage 4, GFR 15-29 ml/min (8) Cellulitis of leg Plan Patient has some improvement in the redness. BUN and Creatinine also slightly better. BP is on lower side. On Bumex 1 mg BID and also on metoloazone, 2 times a week. Increase Metolazone to daily and try to remove more fluid. Follow urine out put and BMP. Avoid Nephrotoxins. Problem Qualifiers (1) Cellulitis of leg: Qualified Code: L03.116 - Cellulitis of left lower extremity Eva Ly MD Aug 25, 2016 13:00
[2016-08-25 16:00] VITALS: BP 95/59; PULSE 81; RESP 20; TEMP 97.5; O2SAT 95
[2016-08-25] MEDS ORDERED: WARFARIN SOD 2 MG TAB PO SCH (16:00)
[2016-08-25 20:00] VITALS: BP 106/61; PULSE 84; PULSE 86; RESP 19; TEMP 97.7; O2SAT 93
[2016-08-25] MEDS ORDERED: METOLAZONE 2.5 MG TAB PO SCH (20:00)
[2016-08-25] MEDS: clonazePAM 1 MG TAB PO SCH (21:53)
[2016-08-26] VITALS (8 sets, daily range): BP systolic 93–113; BP diastolic 51–61; PULSE 80–96; RESP 12–18; TEMP 97.5–99; O2SAT 92–95
[2016-08-26] MEDS: MORPHINE SULFATE ORAL SOLN 10 MG/0.5 ML SYRINGE SL PRN (01:51)
[2016-08-26] MEDS: PIPERACIL-TAZO 2.25 GM PREMIX 50 ML IV SCH ×4 (03:48→21:33)
[2016-08-26] MEDS: ISOSORBIDE MONONITRATE 60 MG TAB PO SCH (05:59)
[2016-08-26 08:11] LABS: MEAN CELL VOLUME 83.8 FL (80.0-100.0); MEAN CORPUSCULAR HEMOGLOBIN 27.3 PG (27.0-34.0); MEAN CORPUSCULAR HGB CONC 32.6 % (32.0-36.0); PLATELET COUNT 191 TH/MM3 (150-450); RED BLOOD COUNT 3.58 MIL/MM3 (4.50-5.90); REVIEW FLAG FINAL; WHITE BLOOD COUNT 5.1 TH/MM3 (4.0-11.0)
[2016-08-26 08:22] LABS: INTERNATIONAL NORMALIZED RATIO 4.2 RATIO; PROTHROMBIN TIME - PATIENT 48.9 SEC (9.8-11.6)
[2016-08-26] MEDS: METOLAZONE 2.5 MG TAB PO SCH (08:47)
[2016-08-26] MEDS: VITAMIN B COMPLEX/VIT C TAB PO SCH (08:47)
[2016-08-26] MEDS: BUMETANIDE 1 MG TAB PO SCH ×2 (08:47→17:44)
[2016-08-26] MEDS: MULTIVITAMIN TAB PO SCH (08:47)
[2016-08-26] MEDS: PANTOPRAZOLE SOD 40 MG DELAYED RELEASE TAB PO SCH (08:47)
[2016-08-26] MEDS: MAGNESIUM OXIDE 400 MG TAB PO SCH (08:47)
[2016-08-26] MEDS: POTASSIUM CHLORIDE 20 MEQ CONTROLLED RELEASE TAB PO SCH ×2 (08:48→21:31)
[2016-08-26] MEDS: CLOPIDOGREL 75 MG TAB PO SCH (08:48)
[2016-08-26] MEDS: CARVEDILOL 3.125 MG TAB PO SCH ×2 (08:48→21:31)
[2016-08-26] MEDS: BUDESONIDE-FORMOTEROL 160/4.5 MCG INHALER INH SCH ×2 (08:49→21:40)
[2016-08-26] MEDS: SODIUM CHLORIDE 0.9% FLUSH 10 ML FLUSH IV FLUSH SCH ×2 (08:49→21:33)
[2016-08-26] MEDS: TIOTROPIUM BROMIDE 18 MCG INH INH SCH (08:49)
[2016-08-26 08:51] LABS: BICARBONATE 31.9 MEQ/L (21.0-32.0)
[2016-08-26] MEDS ORDERED: SODIUM CHLORIDE 0.65% NASAL SPRAY 45 ML BTL EACH NARE SCH (11:45)
--- NOTE | 2016-08-26 12:09 | HHI.PR ---
Objective Objective Results - Vital Signs Date Time Temp Pulse Resp B/P Pulse Ox O2 Delivery O2 Flow Rate FiO2 08/26/16 09:00 83 08/26/16 08:26 93 Nasal Cannula 3.00 08/26/16 08:00 97.5 82 12 93/51 95 08/26/16 04:00 97.7 86 18 97/53 95 08/26/16 00:00 99.0 96 18 112/60 92 08/25/16 20:00 97.7 84 19 106/61 93 08/25/16 20:00 86 08/25/16 16:00 97.5 81 20 95/59 95 08/25/16 12:00 97.4 81 16 92/57 95 I/O 08/25/16 08/25/16 08/25/16 08/26/16 08/26/16 08/26/16 07:00 15:00 23:00 07:00 15:00 23:00 Intake Total 630 ml 960 ml 290 ml 170 ml Output Total 200 ml 250 ml 300 ml Balance 430 ml 960 ml 40 ml -130 ml Intake Oral 480 ml 960 ml 240 ml 120 ml IV Total 150 ml 50 ml 50 ml Output Urine Total 200 ml 250 ml 300 ml # Voids 1 # Bowel Movements 0 1 1 (Kendal Jones) Result Diagram: 08/26/1672008/26/16720 Medications and IVs Active Medications Amiodarone HCl (Cordarone) 100 mg MOWEFR PO; Start 08/26/16 at 20:00 Colchicine (Colchicine) 0.6 mg MOWEFR PO; Start 08/26/16 at 20:00 Metolazone (Zaroxolyn) 2.5 mg DAILY PO Last administered on 08/26/16t 08:47; Admin Dose 2.5 MG; Start 08/26/16 at 09:00 Metolazone (Zaroxolyn) 2.5 mg SUTH PO; Start 08/25/16 at 20:00; Stop 08/25/16 at 20:00; Status DC Sodium Chloride 2 spray 2 spray Q4H EACH NARE; Start 08/26/16 at 11:45 Vancomycin HCl/ Sodium Chloride (Vancomycin Inj/ NS 500 ml Inj) 515 ml @ 257.5 mls/ hr ONCE ONCE IV; Start 08/26/16 at 13:00; Stop 08/26/16 at 14:59 Warfarin Sodium (Coumadin) 1 mg MoFr@16 PO; Start 08/26/16 at 16:00; Status Future Hold Warfarin Sodium (Coumadin) 2 mg SuTuWeThSa@16 PO; Start 08/25/16 at 16:00; Status Hold (Kendal Jones) ROS General: Fatigue (generalized), Weakness, Other (10 point ROS done, positives included , other systems unremarkable) HEENT: Other (epistasis) Pulmonary: SOB (exertional) (Kendal Jones) Physical Exam Physical Exam PHYSICAL EXAMINATION GENERAL: This is a well-developed, chronic ill male resting in bed. He is alert and awake, HEAD: Normocephalic without any lesion or mass noted. Facial features appear symmetric. Rt. nare epistasis, acute on chronic, some residual in throat today OROPHARYNGEAL: Oropharynx without erythema or edema NECK: Supple. No nuchal rigidity or lymphadenopathy. Trachea midline without deviation. CARDIAC: Regular rhythm, regular rate, S1 and S2 are heard. Murmur loud, no gallops or rubs. LUNGS: low volumes,decreased to auscultation bilaterally. No use of accessory muscles on inspiration or expiration. ABDOMEN: Soft, nontender, no organomegaly or masses. Bowel sounds are heard in all four quadrants. No rebound. No guarding. EXTREMITIES: trace edema. Pulses equal bilateral. no cyanosis. thin turgor with darkened tissue , NEUROLOGICAL: Patient mood and affect appropriate. No focal deficit, SKIN:Warm and moist, thin turgor Objective Remarks My nose is stopped up. rt. nare (Kendal Jones) A/P Assessment and Plan Bilateral leg cellulitis, improved with constant elevation -Continue with antibiotics Follow cultures COPD, hypoxia, history of fibrosis Continue with oxygen at 2 L prn DuoNeb's as needed Nasal drainage and epistasis. O2 off for now, mild pressure applied. Coughed up small blood clot from throat, first time, probable from rt. nare. Patient and state mild bleeding noted off and on for 3 weeks. Patient picking around at rt. nare. Encouraged to leave alone and ok for soft tissue for now. nasal spray ordered prn, Patient is on Plavix and Coumadin per Cardiology ([facility]) where they live.. Discussed plan of care with Dr. Carter. and nurse. Monitor rt. nare bleeding. Acute on chronic CHF exacerbation, Echocardiogram 2016, showed EF of 35-40%. Patient has AICD Limit fluid to 1200 cc followed per cardiology OP clinic every 3 weeks.. Patient on Plavix and Coumadin, INR elevated. 4s since admission Chronic kidney disease stage IV, slight increase in creatinine. Monitor renal function closely Improvement on today labs. -Nephrology following Coronary artery disease with recent stent, Chronic A. fib, on Coumadin. Supratherapeutic INR, also on Plavix, patient states his Cardiology ordered. Coumadin on hold, INR elevated. Follow INR daily -Continuous cardiac telemetry Hyperlipidemia Continue with home medications Patient goes to OP heart failure clinic every 3 weeks. Protonix for GI prophylaxis DVT prophy Discussed With: Nurse, Family (), Other (Dr. Carter) (Kendal Jones) Assessment and Plan patient seen and examined had cardiac cath and stent placement in [place] last October has been on Plavix since then, along with coumadin now having recurrent nose bleeds, which the patient attributes to him picking his nose drop in HB from 11.6 to 9 also had hemoptysis this am hold pLavix consult Cardiology for opinion regarding continued nee dof dUAL agents consult pulm for hemoptysis coumadin on hold sec to supratherpaeutic INR PT/INR in am discussed with patient and at bed side discussed with Kendal THOMPSON (Namrata Carter MD) Kendal Jones Aug 26, 2016 12:09 Namrata Carter MD Aug 26, 2016 15:40
[2016-08-26] MEDS ORDERED: VANCOMYCIN 1,500 MG/NS 500 ML IV ONE ×2 (13:00)
[2016-08-26] MEDS ORDERED: SODIUM CHLORIDE 0.65% NASAL SPRAY 45 ML BTL EACH NARE PRN (15:45)
[2016-08-26] MEDS ORDERED: WARFARIN SOD 1 MG TAB PO SCH (16:00)
--- NOTE | 2016-08-26 17:14 | HHI.NPPN ---
Subjective History of Present Illness 75 year-old male with past medical history of chronic lung disease, chronic kidney disease, history of cardiomyopathy with atrial fibrillation, obstructive sleep apnea, restrictive lung disease with interstitial fibrosis, came to the hospital with complaint with swelling and redness of the left leg. I was called to see the patient because of elevated BUN and creatinine. The patient has a history of chronic kidney disease. 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 Additional Remarks Patient is alert, feeling better, has nasal cannula, pain in left leg is better has nose bleeding, with nasal cannula. Review of Systems General Constitutional: Fatigue Cardiovascular Cardiac: Edema, MANZO Objective Data Data 08/25/16 08/26/16 19:00 07:00 Intake Total 960 ml 460 ml Output Total 550 ml Balance 960 ml -90 ml Intake Oral 960 ml 360 ml IV Total 100 ml Output Urine Total 550 ml # Bowel Movements 1 1 Vital Signs Date Time Temp Pulse Resp B/P Pulse Ox O2 Delivery O2 Flow Rate FiO2 08/26/16 12:00 97.6 83 12 100/59 94 08/26/16 09:00 83 08/26/16 08:26 93 Nasal Cannula 3.00 08/26/16 08:00 97.5 82 12 93/51 95 08/26/16 04:00 97.7 86 18 97/53 95 08/26/16 00:00 99.0 96 18 112/60 92 08/25/16 20:00 97.7 84 19 106/61 93 08/25/16 20:00 86 -: 08/26/16 0721 08/26/16 0721 Physical Exam General Appearance: No Acute Distress, Comfortable Eyes Eye Exam: Pupils Equal Throat Throat Exam: Oral Mucosa [place] & Moist Pulmonary Resp Exam: Breath Sounds Equal, No Distress, Rhonchi, Decreased Bases, Diminished Breath Sounds Cardiology CV Exam: Regular, Normal Sinus Rhythm Gastrointestinal/Abdomen GI Exam: Soft, Non-Tender, Bowel Sounds Present, Non-Distended Extremeties Extremities Exam: Moderate Edema Neurologic Neuro Exam: Alert, Awake, Oriented Psychiatric Psych Exam: Appropriate Responses Assessment/Plan Assessment Summary: CHF, Hypertension, CKD Stage IV Problem List: (1) Obstructive sleep apnea (2) Cardiomyopathy (3) Hypertension (4) Low blood pressure (5) Interstitial fibrosis (6) Systolic CHF, acute on chronic (7) CKD (chronic kidney disease) stage 4, GFR 15-29 ml/min (8) Cellulitis of leg Plan Patient has some improvement in the redness. BUN and Creatinine continue to improve. BP is on lower side. On Bumex 1 mg BID and also on metolazone. Follow urine out put and BMP. Avoid Nephrotoxins. Pulmonary and cardiology consulted. Problem Qualifiers (1) Cardiomyopathy: Qualified Code: I42.9 - Cardiomyopathy, unspecified type (2) Hypertension: Qualified Code: I10 - Essential hypertension (3) Cellulitis of leg: Qualified Code: L03.116 - Cellulitis of left lower extremity Eva Ly MD Aug 26, 2016 17:14
[2016-08-26] MEDS ORDERED: AMIODARONE 200 MG TAB PO SCH (20:00)
[2016-08-26] MEDS ORDERED: COLCHICINE 0.6 MG TAB PO SCH (20:00)
[2016-08-26] MEDS: clonazePAM 1 MG TAB PO SCH (21:30)
[2016-08-26] MEDS: ACETAMINOPHEN 325 MG TAB PO PRN (21:32)
[2016-08-27] VITALS (9 sets, daily range): BP systolic 92–104; BP diastolic 55–64; PULSE 82–88; RESP 16–22; TEMP 97.4–97.9; O2SAT 92–97
[2016-08-27] MEDS: PIPERACIL-TAZO 2.25 GM PREMIX 50 ML IV SCH ×3 (02:00→13:27)
[2016-08-27] MEDS: ISOSORBIDE MONONITRATE 60 MG TAB PO SCH (05:42)
--- NOTE | 2016-08-27 06:00 | MB ---
cc: CARTER VILLASEÑOR M.D. DATE OF CONSULTATION 08/26/2016 REASON FOR CONSULTATION Evaluation of anticoagulants. HISTORY OF PRESENT ILLNESS This is a very complicated 75-year-old man who gets most of his care [place]. He does not have regular vehicle service attendant down here. He has a [place] defibrillator. He saw Dr. Tiwari in June but did not follow with him because he does not follow with any vehicle service attendant in [place]. It sounds like he has chronic A-fib. He has got a defibrillator. They have not done an EKG so all I have are telemetry strips but it looks like single chamber pacing. I am going to obtain an AICD check. He is on Plavix and Coumadin. The Plavix apparently is for a stent he had in October of 2015. We have no details about the stent. The Coumadin I gather is for chronic atrial fibrillation. INR is very elevated and he has been having nosebleeds. Both of these medicines are currently on hold. The patient denies having angina prior to his previous stent, does not have angina now. He has a sedentary lifestyle. He has had lower extremity edema. He was admitted for cellulitis and lower extremity edema. He has chronic dyspnea. Denies any typical pain. PAST MEDICAL HISTORY 1. Coronary artery disease. 2. Multiple cath procedures. 3. A-fib. 4. Stage IV kidney disease. 5. COPD. 6. Defibrillator originally placed in 2012, apparently three leads which one was recalled, had to be replaced. 7. Hyperlipidemia. 8. History of pulmonary fibrosis and he is taking amiodarone which is very confusing. 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 9. He has never had shocks from his defibrillator that he can tell. 10. Cardiomegaly. 11. Gout. 12. Hypertension. 13. Gastroesophageal reflux disease. 14. Hiatal hernia. 15. Systolic heart failure. 16. [id number]. 17. Restless leg syndrome. 18. Anxiety depression. 19. Sleep apnea. 20. Stage IV kidney disease. 21. Cardiomyopathy. 22. Previous transfusions. PAST SURGICAL HISTORY 1. Angioplasties. 2. Multiple caths. 3. Cholecystectomy. 4. MILAGROS. 5. Cardioversions. 6. Bypass surgery in 1990 and 1996. 7. AICD placement. ALLERGIES His listed allergies include - AMBIEN. DECADRON. STATINS. HYDROCODONE. CURRENT MEDICATION LIST Extensive. Please see chart. He receives - 1. Carvedilol 3.125 b.i.d. 2. He is on a diuretics in the form of metolazone 2.5 mg daily. 3. Bumetanide 1 mg b.i.d. 4. Amiodarone 100 mg Friday, Friday, Fridays. He is not on a statin. He is not on an HADLEY inhibitor, of course, has renal failure. SOCIAL HISTORY Nonsmoker, nondrinker. FAMILY HISTORY Positive for coronary artery disease in both parents. REVIEW OF SYSTEMS Otherwise negative. PHYSICAL EXAMINATION GENERAL: A well-developed, well-nourished man who does not appear to be in any acute distress. HEENT: Exam is unremarkable. NECK: CVP is mildly elevated. CHEST: Mostly clear. CARDIAC EXAM: S1-S2, regular rate and rhythm, a 2/6 systolic ejection murmur. ABDOMEN: Soft. EXTREMITIES: 2+ edema with some redness over the ankles. DIAGNOSTIC STUDIES There is no EKG available to peruse. Labs are charted. Hematocrit is 30, white count of 5100. BUN 33, creatinine 2.88. Dig level was 1.2 on the second. INR was 4.8 on the first, 4.2 on the second, 4.2 on the third. Warfarin is currently on hold. CHEST X-RAY From August 24 shows stable cardiomegaly with indistinctness and fullness in the right hilar region and infrahilar region. LEG ULTRASOUND Negative for DVT in both legs. RENAL ULTRASOUND Small echogenic kidneys without hydronephrosis. IMPRESSION I was asked to render opinion about his anticoagulation. He had a stent placed in October of 2015. He is still on Plavix. It does not sound like the stent was placed for an acute [place] or ACS. Current guidelines would suggested it could probably be stopped this early but we do not know details about the stent, i.e. was it a small diameter stent, multiple stents, etc., so there may be special reasons why doctors [place] want to continue Plavix. Therefore I am comfortable switching this to aspirin at this point. Regarding his anticoagulation, his INR is poorly controlled. There is good evidence that Jessie has a significant lower risk of bleeding appeared to Coumadin particularly in renally impaired patients. For that reason I am recommending that he be transitioned from warfarin to Eliquis. I would let the INR get all the way down to 2 before making the switch. The next issue regards the amiodarone. He apparently is not on this for AICD shocks. It is not clear why he is on it. It looks like he is in chronic A-fib. It is not being used to maintain sinus rhythm. I am going to have a defibrillator check. If he is in chronic A-fib and he is having no ventricular arrhythmias, then the amiodarone should be stopped, particularly in a patient who has evidence for pulmonary fibrosis. I explained to the and the patient too that, for him spending the length of time that he does in [place], they really should have extensive records that they bring with them considering the multitude of medical problems that he has and he is probably not an ideal patient to be traveling back and forth from [facility] to [place], as sick as he is. We will wait to see what his defibrillator check shows and then I will follow up again to see him. Carter Villaseñor MD VEKwame/JANETH /5:42 PM /5:37 AM
[2016-08-27 07:12] LABS: INTERNATIONAL NORMALIZED RATIO 3.5 RATIO; PROTHROMBIN TIME - PATIENT 40.4 SEC (9.8-11.6)
[2016-08-27 07:17] LABS: AUTOMATED NEUTROPHIL # 3.7 TH/MM3 (1.8-7.7); BASOPHIL # 0.1 TH/MM3 (0-0.2); BASOPHIL % 1.1 % (0.0-2.0); EOSINOPHIL # 0.1 TH/MM3 (0-0.4); EOSINOPHIL % 1.2 % (0.0-4.0); HEMATOCRIT 32.5 % (39.0-51.0); LYMPH % 13.9 % (9.0-44.0); LYMPHOCYTE # 0.7 TH/MM3 (1.0-4.8); MEAN CORPUSCULAR HGB CONC 31.8 % (32.0-36.0); MONO % 10.6 % (0.0-8.0); NEUT % 73.2 % (16.0-70.0); PLATELET COUNT 197 TH/MM3 (150-450); RED BLOOD COUNT 3.83 MIL/MM3 (4.50-5.90); RED CELL DISTRIBUTION WIDTH 22.1 % (11.6-17.2)
[2016-08-27 07:23] LABS: HEMO FLAGS AUTO DIFF
[2016-08-27 07:29] LABS: BICARBONATE 31.1 MEQ/L (21.0-32.0)
[2016-08-27 08:28] LABS: ACANTHOCYTES OCC (NORMAL); HELMET CELLS OCC (NORMAL); KERATOCYTES OCC (NORMAL); OVALOCYTES 1+ (NORMAL); PLATELET ESTIMATE SMEAR NORMAL (NORMAL)
[2016-08-27 08:29] LABS: PLATELET MORPHOLOGY NORMAL (NORMAL); SCAN/DIFF AUTO DIFF CONFIRMED
[2016-08-27] MEDS: CARVEDILOL 3.125 MG TAB PO SCH ×2 (09:00→21:00)
[2016-08-27] MEDS: VITAMIN B COMPLEX/VIT C TAB PO SCH (09:00)
[2016-08-27] MEDS: BUDESONIDE-FORMOTEROL 160/4.5 MCG INHALER INH SCH ×2 (09:03→21:36)
[2016-08-27] MEDS: TIOTROPIUM BROMIDE 18 MCG INH INH SCH (09:03)
[2016-08-27] MEDS: SODIUM CHLORIDE 0.9% FLUSH 10 ML FLUSH IV FLUSH SCH ×2 (09:04→21:38)
[2016-08-27] MEDS: METOLAZONE 2.5 MG TAB PO SCH (09:04)
[2016-08-27] MEDS: PANTOPRAZOLE SOD 40 MG DELAYED RELEASE TAB PO SCH (09:05)
[2016-08-27] MEDS: MULTIVITAMIN TAB PO SCH (09:05)
[2016-08-27] MEDS: ACETAMINOPHEN 325 MG TAB PO PRN (09:05)
[2016-08-27] MEDS: BUMETANIDE 1 MG TAB PO SCH ×2 (09:05→17:55)
[2016-08-27] MEDS: POTASSIUM CHLORIDE 20 MEQ CONTROLLED RELEASE TAB PO SCH ×2 (09:05→21:37)
[2016-08-27] MEDS: MAGNESIUM OXIDE 400 MG TAB PO SCH (09:05)
--- NOTE | 2016-08-27 09:44 | MB ---
cc: [employer] DATE OF CONSULTATION: 08/27/2016 REASON FOR CONSULTATION: Hemoptysis. HISTORY OF PRESENT ILLNESS Mr. Levin is a 75-year-old male who was admitted with cellulitis of his left lower extremity. 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 Obstructive sleep apnea, atrial fibrillation, chronic kidney disease and chronic anemia. The patient is followed by nephrology at present he does have his serum creatinine ranges from 2-3. He denies history of fevers or chills, did have what he describes as a one-time episode of hemoptysis about a teaspoon without recurrence he is not sure if it originated from the nose or from the lung but he did cough it up regarding his and do not believe that this relates to the patient's belief that it is related to his picking on his nose. PAST MEDICAL HISTORY: Patients past medical history is that of restrictive airway disease. 2. Question of chronic obstructive pulmonary disease. 3. Obstructive sleep apnea. 4. Coronary artery disease. 5. Atrial fibrillation. 6. Chronic renal insufficiency. 7. Chronic anemia. 8. He did have cardiac catheterization in the past and stent placement. 9. Coronary artery bypass graft surgery 1990 and redo in 1996. 10. Cholecystectomy. 11. AICD in place had a previous cardioversion SOCIAL HISTORY Does not smoke, does not drink. No TB or industrial exposure. FAMILY HISTORY Positive for hypertension and heart disease. ALLERGIES AMBIEN DECADRON STATINS HYDROCODONE. MEDICATIONS AT HOME 1. Symbicort. 2. Carvedilol 3. potassium 4. Bumex 5. Plavix 6. Spiriva. 7. Protonix 8. Isosorbide. 9. Magnesium. 10. Klonopin. 11. Coumadin. 12. Amiodarone. 13. Colchicine 14. Lovenox 15. Zosyn 16. Metolazone REVIEW OF SYSTEMS 12-point review of systems as per HPI and past history otherwise negative PHYSICAL EXAMINATION: IN GENERAL: The patient is alert. VITAL SIGNS: Temperature is 98 degrees Fahrenheit, pulse 80, respiration 20, blood pressure 104/61, 110/60, oxygen saturation 95% on O2 by nasal cannula. HEAD, EYES, EARS, NOSE, AND THROAT: Exam unremarkable. Eyes without icterus. NECK: Without adenopathy or thyroid enlargement. Central trachea. CHEST: A few scattered rhonchi bilaterally. Cardiac exam PMI not appreciated service to audible. No murmur or rub. ABDOMEN: Lax bowel sounds audible. EXTREMITIES: No clubbing, cyanosis or edema. LABORATORY DATA White count 6000, hemoglobin 11, hematocrit 33, platelets 185,000. Sodium 137, potassium 4.8, BUN 42, creatinine 3.2. IMPRESSION Hemoptysis. Chronic interstitial lung disease 3. Chronic obstructive pulmonary disease 4. Obstructive sleep apnea. 5. Atrial fibrillation 6. Coronary artery disease. 7. Chronic kidney disease. PLAN Will obtain CT scan of the chest without contrast to assess for any abnormality, especially given the patient's history of asbestos exposure. Meanwhile continue his bronchodilator therapy and empiric antibiotic therapy. We will obtain PFT as well as arterial blood gas. We will obtain the patient's previous records to assess the need for continued therapy for sleep apnea. I do thank you for asking to partake in Mr. Martha arcos. Sincerely, Zohra العلي MD WWW/ /8:56 AM /9:18 AM
--- NOTE | 2016-08-27 10:07 | HHI.PR ---
Subjective Remarks resting in bed awake no acute SOB at rest extremities with trace edema no family present BP high 90s to 104. Patient states this is his range. (Kendal Jones) Objective Objective Results - Vital Signs Date Time Temp Pulse Resp B/P Pulse Ox O2 Delivery O2 Flow Rate FiO2 08/27/16 08:00 97.7 82 20 92/55 97 08/27/16 04:00 97.4 86 18 97/58 92 08/27/16 00:24 97.9 88 16 104/58 95 08/26/16 20:00 98.1 82 18 113/56 92 08/26/16 20:00 88 08/26/16 16:00 97.7 80 16 109/61 92 08/26/16 12:00 97.6 83 12 100/59 94 I/O 08/26/16 08/26/16 08/26/16 08/27/16 08/27/16 08/27/16 07:00 15:00 23:00 07:00 15:00 23:00 Intake Total 170 ml 840 ml Output Total 300 ml 500 ml Balance -130 ml 840 ml -500 ml Intake Oral 120 ml 840 ml IV Total 50 ml Output Urine Total 300 ml 500 ml # Voids 100 # Bowel Movements 1 0 (Kendal Jones) Result Diagram: 08/27/16 0554 08/27/16 0554 ROS General: Fatigue, Weakness, Other (10 point ROS done, positives noted.) HEENT: Other (no further nasal bleeding , encouraged again not to pick scabs in nare.) Cardiac: Edema (amanda LE) Pulmonary: SOB (exertional prn) Skin: Other (LE thin turgor, ) (Kendal Jones) Physical Exam Physical Exam PHYSICAL EXAMINATION GENERAL: This is an obese chronic ill male who appears to be in no acute distress at rest . He is alert and awake HEAD: Normocephalic. rt nare no epistasis Facial features appear symmetric. OROPHARYNGEAL: Oropharynx without erythema or edema. NECK: Supple. No nuchal rigidity or lymphadenopathy. Trachea midline without deviation. CARDIAC: Regular rhythm, regular rate, S1 and S2 are heard LUNGS: Low volumes. Diminished to auscultation bilaterally. no wheeze, occ rhonchi ABDOMEN: obese,Soft, nontender, no organomegaly or masses. Bowel sounds are heard in all four quadrants. No rebound. No guarding. EXTREMITIES: 1+ edema. Pulses equal bilateral. ext. warm NEUROLOGICAL: Patient mood and affect appropriate. occ. repeats himself SKIN:Warm and moist Objective Remarks Im ok I guess. I havent been up much (Kendal Jones) A/P Assessment and Plan Bilateral leg cellulitis, improved with constant elevation -Continue with antibiotics, Zosyn , WBC normal range. Follow cultures, negative COPD, hypoxia, history of fibrosis Continue with oxygen at 2 L prn DuoNeb's as needed Nasal drainage and epistasis. No further bleeding. Patient admits to picking off scab in rt. nare,. INR decreased to 3.5. Monitoring until INR 2 < before starting Eliquis. appreciate Cardiology input. Patient agrees to try different meds such as eliquis, and changes in Plavix and Amniodarone. Will continue cardiac meds changes and w/u. Appreciate input. AICD/PM to be evaled. Acute on chronic CHF exacerbation, controlled for now. Cardiology evalinf med mangement. Chronic kidney disease stage IV, affected per CVD -Nephrology following, patient probable close to baseline. No acute changes for now. Coronary artery disease with recent stent, Chronic A. fib, on Coumadin. Coumadin on hold, INR elevated. Will change to Eliquis when INR 2< Follow INR daily telemetry Hyperlipidemia Continue with home medications Patient goes to OP heart failure clinic every 3 weeks when at home Once INR stable pt. can discharge. Follow cardiology plan. Protonix for GI prophylaxis DVT prophy Discussed With: Nurse, Family (), Other (Dr. Carter) (Kendal Jones) Assessment and Plan patient seen jonny xamined no more bleeding h & H stable holding coumadin INR coming doen appreciate Cardiology input continue Plavix and switcht o Eliquis once INR less than 2 cellulitis resolved d/c Zosyn, switch to po Kelflex XRay left ankle complaining of severe pain discussed with patient discussed with discussed with Kendal THOMPSON (Namrata Carter MD) Kendal Jones Aug 27, 2016 10:07 Namrata Carter MD Aug 27, 2016 16:00
--- NOTE | 2016-08-27 10:29 | PD.CARD.PN ---
Subjective Subjective Remarks c/o pain in his foot Objective Medications Current Medications Medications (Trade) Dose Ordered Sig/Beckie Route Start Time Stop Time Status Last Admin (NS Flush) 2 ml UNSCH PRN IV FLUSH 08/24/16 19:45 (NS Flush) 2 ml BID IV FLUSH 08/24/16 21:00 08/27/16 09:04 (Tylenol) 650 mg Q4H PRN PO 08/24/16 19:45 08/27/16 09:05 (Zofran Inj) 4 mg Q6H PRN IVP 08/24/16 19:45 Naloxone HCl 0.4 mg 0.4 mg UNSCH PRN IV 08/24/16 19:45 Piperacillin Sod/ Tazobactam Sod 50 ml @ 100 mls/hr Q6H IV 08/25/16 02:00 08/27/16 09:04 (Vancomycin Consult Pharmacy) 0 ml @ 0 mls/hr UNSCH OTHER 08/24/16 20:00 (Ventolin Hfa Inh) 2 puff BID PRN INH 08/24/16 20:00 (Cordarone) 100 mg MOWEFR PO 08/26/16 20:00 08/26/16 21:31 (Symbicort 160-4.5 Inh) 2 puff BID INH 08/24/16 21:00 08/27/16 09:03 (Bumetanide) 1 mg BID@09,18 PO 08/25/16 09:00 08/27/16 09:05 (Coreg) 3.125 mg BID PO 08/24/16 21:00 08/26/16 21:31 (KlonoPIN) 2 mg HS PO 08/24/16 21:00 08/26/16 21:30 (Plavix) 75 mg DAILY PO 08/25/16 09:00 Hold 08/26/16 08:48 (Colchicine) 0.6 mg MOWEFR PO 08/26/16 20:00 08/26/16 21:32 (Imdur) 60 mg DAILY@06 PO 08/25/16 06:00 08/27/16 05:42 (Roxanol Liq) 10 mg Q3H PRN SL 08/24/16 20:00 08/26/16 01:51 (Theragran) 1 tab DAILY PO 08/25/16 09:00 08/27/16 09:05 (Miralax) 17 gm DAILY PRN PO 08/24/16 20:00 (KCl) 80 meq BID PO 08/24/16 21:00 08/27/16 09:05 (Spiriva Inh) 18 mcg DAILY INH 08/25/16 09:00 08/27/16 09:03 (Coumadin) 1 mg MoFr@16 PO 08/26/16 16:00 Hold (Coumadin) 2 mg SuTuWeThSa@16 PO 08/25/16 16:00 Hold (Allbee C) 1 tab DAILY PO 08/25/16 09:00 08/27/16 09:00 (Protonix) 40 mg DAILY PO 08/25/16 09:00 08/27/16 09:05 (Mag-Ox) 400 mg DAILY PO 08/25/16 09:00 08/27/16 09:05 (Requip) 3 mg HS PO 08/24/16 21:00 08/26/16 21:30 Patient Own Medication PT OWN MED: Rosuvastatin ([place]... HS PO 08/24/16 21:00 Hold (Zaroxolyn) 2.5 mg DAILY PO 08/26/16 09:00 08/27/16 09:04 ([employer] [place]) 2 spray Q4H PRN EACH NARE 08/26/16 15:45 Vital Signs / I&O Vital Signs Date Time Temp Pulse Resp B/P Pulse Ox O2 Delivery O2 Flow Rate FiO2 08/27/16 08:00 97.7 82 20 92/55 97 08/27/16 04:00 97.4 86 18 97/58 92 08/27/16 00:24 97.9 88 16 104/58 95 08/26/16 20:00 98.1 82 18 113/56 92 08/26/16 20:00 88 08/26/16 16:00 97.7 80 16 109/61 92 08/26/16 12:00 97.6 83 12 100/59 94 I/O 08/26/16 08/26/16 08/26/16 08/27/16 08/27/16 08/27/16 07:00 15:00 23:00 07:00 15:00 23:00 Intake Total 170 ml 840 ml Output Total 300 ml 500 ml Balance -130 ml 840 ml -500 ml Intake Oral 120 ml 840 ml IV Total 50 ml Output Urine Total 300 ml 500 ml # Voids 100 # Bowel Movements 1 0 Physical Exam Alert Chest Clear CV S1S2 RRR AICD check- no ventricular arrythmias and 100% afib Laboratory Laboratory Tests Test 08/27/16 05:54 White Blood Count 5.0 TH/MM3 Red Blood Count 3.83 MIL/MM3 Hemoglobin 10.3 GM/DL Hematocrit 32.5 % Mean Corpuscular Volume 85.0 FL Mean Corpuscular Hemoglobin 27.0 PG Mean Corpuscular Hemoglobin 31.8 % Concent Red Cell Distribution Width 22.1 % Platelet Count 197 TH/MM3 Mean Platelet Volume 8.7 FL Neutrophils (%) (Auto) 73.2 % Lymphocytes (%) (Auto) 13.9 % Monocytes (%) (Auto) 10.6 % Eosinophils (%) (Auto) 1.2 % Basophils (%) (Auto) 1.1 % Neutrophils # (Auto) 3.7 TH/MM3 Lymphocytes # (Auto) 0.7 TH/MM3 Monocytes # (Auto) 0.5 TH/MM3 Eosinophils # (Auto) 0.1 TH/MM3 Basophils # (Auto) 0.1 TH/MM3 CBC Comment AUTO DIFF Differential Comment AUTO DIFF CONFIRMED Platelet Estimate NORMAL Platelet Morphology Comment NORMAL Ovalocytes 1+ Helmet Cells OCC Acanthocytes OCC Keratocytes OCC Prothrombin Time 40.4 SEC Prothromb Time International 3.5 RATIO Ratio Sodium Level 139 MEQ/L Potassium Level 4.0 MEQ/L Chloride Level 99 MEQ/L Carbon Dioxide Level 31.1 MEQ/L Anion Gap 9 MEQ/L Blood Urea Nitrogen 30 MG/DL Creatinine 3.07 MG/DL Estimat Glomerular Filtration 20 ML/MIN Rate Random Glucose 109 MG/DL Calcium Level 8.8 MG/DL Random Vancomycin Level 24.0 COMMENT Assessment and Plan Problem List: (1) Supratherapeutic INR Assessment and Plan: Stop warfarin permanently (2) Current use of emt intermediate anticoagulation Assessment and Plan: change to Eliquis 5mg bid once INR comes down (3) Stented coronary artery Assessment and Plan: resume clopidogrel 75 mg daily (4) Hx of CABG Assessment and Plan I will sig off. Tramaine Avalos MD Aug 27, 2016 10:29
--- NOTE | 2016-08-27 10:49 | EKG ---
Date Performed: 08/26/2016 Time Performed: 17:53:49 PTAGE: 75 years EKG: ELECTRONIC VENTRICULAR PACEMAKER ABNORMAL RHYTHM ECG Compared to prior tracing no significa nt change PREVIOUS TRACING : 07/18/2016 14.29 DOCTOR: Le Doty Interpretating Date/Time 08/27/2016 10:41:58
--- NOTE | 2016-08-27 11:06 | RADRPT ---
EXAM DATE/TIME: 08/27/2016 10:37 [facility] COMPARISON: CT THORAX W/O CONTRAST, July 19, 2016, 16:53. INDICATIONS : Hemoptysis. RADIATION DOSE: 5.97 CTDIvol (mGy) MEDICAL HISTORY : Cardiovascular disease. Chronic obstructive pulmonary disease. Hypertension. Renal failure. SURGICAL HISTORY : Pacemaker. ENCOUNTER: Initial ACUITY: 1 day PAIN SCALE: 0/10 LOCATION: chest TECHNIQUE: Volumetric scanning of the chest was performed. Using automated exposure control and adjustment of t he mA and/or kV according to patient size, radiation dose was kept as low as reasonably achievable to obtain optimal diagnostic quality images. FINDINGS: Moderate size bilateral pleural effusions are present right greater than left. There is a 4 mm nodul e in the right upper lobe. Followup CT scan in 6 months is recommended. Examination of the mediastinum demonstrates no abnormally enlarged lymph nodes by CT criteria. No axi llary or hilar abnormalities are identified. Coronary artery calcifications are present. A defibrilla tor device is in place via a left sided approach. The visualized upper abdomen demonstrates no abnorm ality. CONCLUSION: 1. Moderate right effusion 2. 4 mm nodule right upper lobe. Followup CT scan in 6 months is recommended. 3. No etiology for hemoptysis is identified. Jimmy Cummings MD on August 27, 2016 at 11:02 Board Certified Radiologist. This report was verified electronically.
[2016-08-27] MEDS: MORPHINE SULFATE ORAL SOLN 10 MG/0.5 ML SYRINGE SL PRN (11:31)
[2016-08-27 14:41] LABS: BLOOD GAS BASE EXCESS 1.9 mmol/L (-2-2); BLOOD GAS CARBOXYHEMOGLOBIN 2.1 % (0-4); BLOOD GAS HCO3 25 mmol/L (22-26); BLOOD GAS METHEMOGLOBIN 0.5 % (0-2); BLOOD GAS O2 HGB SATURATION 88 % (90-100); BLOOD GAS OXYGEN CONTENT 13.1 Vol % (12.0-20.0); BLOOD GAS PCO2 33 mmHg (38-42); BLOOD GAS PO2 57 mmHg (61-120); BLOOD GAS TOTAL HGB 10.5 G/DL (12.0-16.0); TEMP CORR TO 98.6
[2016-08-27 14:42] LABS: CRITICAL VALUE YES; DRAW SITE RT RADIAL; FIO2 21 %; NUMBER OF ARTERIAL PUNCTURES 1; OXYGEN DEVICE ROOM AIR; STAT NO
--- NOTE | 2016-08-27 17:02 | RADRPT ---
EXAM DATE/TIME: 08/27/2016 16:40 [facility] COMPARISON: CHEST SINGLE AP, August 24, 2016, 17:19. INDICATIONS : Left ankle painful and swollen, bilateral lower extremity cellulitis MEDICAL HISTORY : Cardiovascular disease. Chronic obstructive pulmonary disease. Renal failure, chronic. bilateral lower extremity cellulitis, sepsis, hypertension SURGICAL HISTORY : Pacemaker. ENCOUNTER: Subsequent ACUITY: 1 day PAIN SCORE: 10/10 LOCATION: Left ankle FINDINGS: The examination demonstrates soft tissue swelling about the ankle mortise. No acute fracture seen. Note is made of atherosclerotic calcification involving the tibial vessels. CONCLUSION: 1. Soft tissue swelling. No acute fracture. Dheeraj Gonzales MD on August 27, 2016 at 16:59 Board Certified Radiologist. This report was verified electronically.
--- NOTE | 2016-08-27 18:53 | HHI.NPPN ---
Subjective History of Present Illness 75 year-old male with past medical history of chronic lung disease, chronic kidney disease, history of cardiomyopathy with atrial fibrillation, obstructive sleep apnea, restrictive lung disease with interstitial fibrosis, came to the hospital with complaint with swelling and redness of the left leg. I was called to see the patient because of elevated BUN and creatinine. The patient has a history of chronic kidney disease. He has been followed by his radiation control technician up [place]. Additional Remarks Patient is alert, feeling better, has nasal cannula, pain in left leg off and on. Review of Systems General Constitutional: Fatigue Cardiovascular Cardiac: Edema, MANZO Objective Data Data 08/26/16 08/27/16 19:00 07:00 Intake Total 840 ml Output Total 500 ml Balance 840 ml -500 ml Intake Oral 840 ml Output Urine Total 500 ml # Voids 100 # Bowel Movements 1 0 Vital Signs Date Time Temp Pulse Resp B/P Pulse Ox O2 Delivery O2 Flow Rate FiO2 08/27/16 18:14 Nasal Cannula 4.00 08/27/16 16:00 97.6 83 18 98/64 95 08/27/16 12:00 97.9 82 20 93/59 95 08/27/16 08:40 86 08/27/16 08:00 97.7 82 20 92/55 97 08/27/16 07:53 95 Nasal Cannula 4.00 08/27/16 04:00 97.4 86 18 97/58 92 08/27/16 00:24 97.9 88 16 104/58 95 08/26/16 20:00 98.1 82 18 113/56 92 08/26/16 20:00 88 -: 08/27/16 0554 08/27/16 0554 Physical Exam General Appearance: No Acute Distress, Comfortable Eyes Eye Exam: Pupils Equal Throat Throat Exam: Oral Mucosa [place] & Moist Pulmonary Resp Exam: Breath Sounds Equal, No Distress, Rhonchi, Decreased Bases, Diminished Breath Sounds Cardiology CV Exam: Regular, Normal Sinus Rhythm Gastrointestinal/Abdomen GI Exam: Soft, Non-Tender, Bowel Sounds Present, Non-Distended Extremeties Extremities Exam: Moderate Edema Neurologic Neuro Exam: Alert, Awake, Oriented Psychiatric Psych Exam: Appropriate Responses Assessment/Plan Assessment Summary: CHF, Hypertension, CKD Stage IV Problem List: (1) Obstructive sleep apnea (2) Cardiomyopathy (3) Hypertension (4) Low blood pressure (5) Interstitial fibrosis (6) Systolic CHF, acute on chronic (7) CKD (chronic kidney disease) stage 4, GFR 15-29 ml/min (8) Cellulitis of leg Plan Patient has some improvement in the redness. BUN and Creatinine almost same, close to 3.0, possibly his baseline. BP is on lower side. On Bumex 1 mg BID and also on metolazone. Follow urine out put and BMP. Avoid Nephrotoxins. Pulmonary and cardiology consult noted. Follow Creatinine if continue to increase, will consider decreasing the diuretics. Problem Qualifiers (1) Cardiomyopathy: Qualified Code: I42.9 - Cardiomyopathy, unspecified type (2) Hypertension: Qualified Code: I10 - Essential hypertension (3) Cellulitis of leg: Qualified Code: L03.116 - Cellulitis of left lower extremity Eva Ly MD Aug 27, 2016 18:53
[2016-08-27] MEDS: CEPHALEXIN MONOHYDRATE 500 MG CAP PO SCH (21:36)
[2016-08-27] MEDS: clonazePAM 1 MG TAB PO SCH (21:37)
[2016-08-28] VITALS: BP 104/61; PULSE 83; RESP 20; TEMP 98.1; O2SAT 94
[2016-08-28 04:00] VITALS: BP 101/66; PULSE 80; RESP 20; TEMP 97.5; O2SAT 94
[2016-08-28] MEDS: ISOSORBIDE MONONITRATE 60 MG TAB PO SCH (06:01)
[2016-08-28] MEDS: CEPHALEXIN MONOHYDRATE 500 MG CAP PO SCH ×2 (06:01→15:11)
[2016-08-28 07:52] VITALS: PULSE 82
[2016-08-28 07:56] LABS: AUTOMATED NEUTROPHIL # 4.9 TH/MM3 (1.8-7.7); BASOPHIL # 0.1 TH/MM3 (0-0.2); BASOPHIL % 0.8 % (0.0-2.0); EOSINOPHIL # 0.1 TH/MM3 (0-0.4); EOSINOPHIL % 1.2 % (0.0-4.0); HEMO FLAGS DIFF FINAL; LYMPH % 12.2 % (9.0-44.0); LYMPHOCYTE # 0.8 TH/MM3 (1.0-4.8); MEAN CELL VOLUME 84.9 FL (80.0-100.0); MEAN CORPUSCULAR HEMOGLOBIN 27.8 PG (27.0-34.0); MEAN CORPUSCULAR HGB CONC 32.7 % (32.0-36.0); MONO % 9.9 % (0.0-8.0); NEUT % 75.9 % (16.0-70.0); PLATELET COUNT 232 TH/MM3 (150-450); RED BLOOD COUNT 4.13 MIL/MM3 (4.50-5.90); RED CELL DISTRIBUTION WIDTH 21.7 % (11.6-17.2); WHITE BLOOD COUNT 6.5 TH/MM3 (4.0-11.0)
[2016-08-28 08:00] VITALS: BP 122/74; PULSE 84; RESP 20; TEMP 97.4; O2SAT 97
[2016-08-28 08:02] LABS: INTERNATIONAL NORMALIZED RATIO 2.5 RATIO; PROTHROMBIN TIME - PATIENT 28.2 SEC (9.8-11.6)
[2016-08-28 08:34] LABS: BICARBONATE 31.1 MEQ/L (21.0-32.0); POTASSIUM 4.4 MEQ/L (3.5-5.1)
[2016-08-28] MEDS ORDERED: APIXABAN 5 MG TABLET PO SCH (09:00)
--- NOTE | 2016-08-28 09:08 | HHI.PR ---
Subjective Remarks Up in chair with computer awake no acute SOB at rest extremities with trace edema no family present, talk and on phone Asking about going home (Kendal Jones) Objective Objective Results - Vital Signs Date Time Temp Pulse Resp B/P Pulse Ox O2 Delivery O2 Flow Rate FiO2 08/28/16 04:00 97.5 80 20 101/66 94 08/28/16 00:00 98.1 83 20 104/61 94 08/27/16 21:00 95/59 08/27/16 20:00 97.5 86 22 93/56 93 08/27/16 20:00 82 08/27/16 18:14 Nasal Cannula 4.00 08/27/16 16:00 97.6 83 18 98/64 95 08/27/16 12:00 97.9 82 20 93/59 95 I/O 08/27/16 08/27/16 08/27/16 08/28/16 08/28/16 08/28/16 07:00 15:00 23:00 07:00 15:00 23:00 Intake Total 720 ml 240 ml 120 ml Output Total 500 ml 575 ml 700 ml Balance -500 ml 145 ml -460 ml 120 ml Intake Oral 720 ml 240 ml 120 ml Output Urine Total 500 ml 575 ml 700 ml Stool Total 0 ml # Voids 100 2 # Bowel Movements 0 0 0 (Kendal Jones) Result Diagram: 08/28/16 0732 08/28/16 0732 ROS General: Weakness (lower extremity), Other (10 point ROS done positives noted) Pulmonary: SOB (exertional none at rest) GI: Other (no further nasal bleeding) (Kendal Jones) Physical Exam Physical Exam PHYSICAL EXAMINATION GENERAL: This is a obese well-developed,chronically male who appears to be in no acute distress. He is alert and awake, HEAD: Normocephalic without any lesion or mass noted. Facial features appear symmetric. OROPHARYNGEAL: Oropharynx without erythema or edema. NECK: Supple. No nuchal rigidity or lymphadenopathy. Trachea midline without deviation. CARDIAC: Regular rhythm, regular rate, S1 and S2 are heard. LUNGS: Mild diminished to auscultation bilaterally. no wheeze No use of accessory muscles on inspiration or expiration. ABDOMEN: Obese, Soft, nontender, no organomegaly or masses. Bowel sounds are heard in all four quadrants. No rebound. No guarding. EXTREMITIES: Trace lower extremity edema. Pulses equal bilateral. NEUROLOGICAL: Patient mood and affect appropriate. No focal deficit SKIN:Warm and moist Objective Remarks My ankles and lower extremities hurt sometimes (Kendal Jones) A/P Assessment and Plan Bilateral leg cellulitis, improved with constant elevation -Continue with antibiotics, Zosyn , WBC normal range. Follow cultures, negative May want to use wheelchair if he is needing increased ambulation COPD, hypoxia, history of fibrosis Continue with oxygen at 2 L prn DuoNeb's as needed Acute on chronic CHF exacerbation, controlled for now. Cardiology evaling med mangement. Discussion has been around change in some of the medications. Once patient is stable from a cardiac standpoint he can discharge. CT scan, nodule noted right upper lung. Will need follow-up when he is back home in 6 months. Right pleural effusion continues Chronic kidney disease stage IV, affected per CVD -Nephrology following, patient probable close to baseline. Improvement today on today's labs Coronary artery disease with recent stent, Chronic A. fib, on Coumadin. Coumadin on hold, INR elevated. Will change to Eliquis when INR 2< Follow INR daily, normal range today 2.5 telemetry Hyperlipidemia Continue with home medications Patient goes to [facility] heart failure clinic every 3 weeks when at home Advised, and caution with his long distance travel Protonix for GI prophylaxis DVT prophy Discharge Planning Home with , possible today or in a.m. when okay with cardiology Discussed With: Nurse, Family (), Other (Dr. Benedict, seen on his behalf) ( Kendal Jones) Assessment and Plan Patient seen and examined as above with at bedside labs and meds reviewed some pf previous notes reviewed dw pt and in detail about dc planning including meds and followup with his pcp and cardiology and other physicians chivo hamlin about plan of care dw rn see orders total time spent in dc planning of this pt is more than 35 min (Cheko Benedict MD) Kendal Jones Aug 28, 2016 09:08 Cheko Benedict MD Aug 28, 2016 14:16
[2016-08-28] MEDS: BUDESONIDE-FORMOTEROL 160/4.5 MCG INHALER INH SCH (09:31)
[2016-08-28] MEDS: SODIUM CHLORIDE 0.9% FLUSH 10 ML FLUSH IV FLUSH SCH (09:31)
[2016-08-28] MEDS: TIOTROPIUM BROMIDE 18 MCG INH INH SCH (09:31)
[2016-08-28] MEDS: VITAMIN B COMPLEX/VIT C TAB PO SCH (09:32)
[2016-08-28] MEDS: BUMETANIDE 1 MG TAB PO SCH (09:33)
[2016-08-28] MEDS: METOLAZONE 2.5 MG TAB PO SCH (09:33)
[2016-08-28] MEDS: PANTOPRAZOLE SOD 40 MG DELAYED RELEASE TAB PO SCH (09:33)
[2016-08-28] MEDS: MAGNESIUM OXIDE 400 MG TAB PO SCH (09:33)
[2016-08-28] MEDS: MULTIVITAMIN TAB PO SCH (09:33)
[2016-08-28] MEDS: CARVEDILOL 3.125 MG TAB PO SCH (09:33)
[2016-08-28] MEDS: POTASSIUM CHLORIDE 20 MEQ CONTROLLED RELEASE TAB PO SCH (09:33)
[2016-08-28] MEDS: CLOPIDOGREL 75 MG TAB PO SCH (09:35)
--- NOTE | 2016-08-28 10:42 | HHI.NPPN ---
Subjective History of Present Illness 75 year-old male with past medical history of chronic lung disease, chronic kidney disease, history of cardiomyopathy with atrial fibrillation, obstructive sleep apnea, restrictive lung disease with interstitial fibrosis, came to the hospital with complaint with swelling and redness of the left leg. I was called to see the patient because of elevated BUN and creatinine. The patient has a history of chronic kidney disease. [place] Additional Remarks Patient is alert, sitting and eating breakfast, mild SOB. Review of Systems General Constitutional: Fatigue Cardiovascular Cardiac: Edema, MANZO Objective Data Data 08/27/16 08/28/16 19:00 07:00 Intake Total 720 ml 360 ml Output Total 575 ml 700 ml Balance 145 ml -340 ml Intake Oral 720 ml 360 ml Output Urine Total 575 ml 700 ml Stool Total 0 ml # Voids 2 # Bowel Movements 0 0 Vital Signs Date Time Temp Pulse Resp B/P Pulse Ox O2 Delivery O2 Flow Rate FiO2 08/28/16 04:00 97.5 80 20 101/66 94 08/28/16 00:00 98.1 83 20 104/61 94 08/27/16 21:00 95/59 08/27/16 20:00 97.5 86 22 93/56 93 08/27/16 20:00 82 08/27/16 18:14 Nasal Cannula 4.00 08/27/16 16:00 97.6 83 18 98/64 95 08/27/16 12:00 97.9 82 20 93/59 95 -: 08/28/16 0732 08/28/16 0732 Physical Exam General Appearance: No Acute Distress, Comfortable Eyes Eye Exam: Pupils Equal Throat Throat Exam: Oral Mucosa [place] & Moist Pulmonary Resp Exam: Breath Sounds Equal, No Distress, Rhonchi, Decreased Bases, Diminished Breath Sounds Cardiology CV Exam: Regular, Normal Sinus Rhythm Gastrointestinal/Abdomen GI Exam: Soft, Non-Tender, Bowel Sounds Present, Non-Distended Extremeties Extremities Exam: Moderate Edema Neurologic Neuro Exam: Alert, Awake, Oriented Psychiatric Psych Exam: Appropriate Responses Assessment/Plan Assessment Summary: CHF, Hypertension, CKD Stage IV Problem List: (1) Obstructive sleep apnea (2) Cardiomyopathy (3) Hypertension (4) Low blood pressure (5) Interstitial fibrosis (6) Systolic CHF, acute on chronic (7) CKD (chronic kidney disease) stage 4, GFR 15-29 ml/min (8) Cellulitis of leg Plan Patient has some improvement in the redness. BUN and Creatinine almost same, close to 3.0, possibly his baseline. BP is on lower side. On Bumex 1 mg BID and also on metolazone. Follow urine out put and BMP. Avoid Nephrotoxins. Pulmonary and cardiology consult noted. Creatinine is better and urine out put is good. Continue same diuretics for now. Problem Qualifiers (1) Cardiomyopathy: Qualified Code: I42.9 - Cardiomyopathy, unspecified type (2) Hypertension: Qualified Code: I10 - Essential hypertension (3) Cellulitis of leg: Qualified Code: L03.116 - Cellulitis of left lower extremity Eva Ly MD Aug 28, 2016 10:42
[2016-08-28 12:00] VITALS: BP 98/57; PULSE 83; RESP 20; TEMP 97.8; O2SAT 97
[2016-08-28] MEDS ORDERED: CEPH500C PO (14:40)
[2016-08-28] MEDS ORDERED: APIX5TAB PO (14:40)
--- NOTE | 2016-08-28 14:43 | HHI.FF ---
Face to Face Verification Diagnosis: (1) Cardiomyopathy (2) Cellulitis of leg (3) Obstructive sleep apnea (4) CKD (chronic kidney disease) stage 4, GFR 15-29 ml/min (5) Systolic CHF, acute on chronic Home Health Nursing Order: Medical education Signs/symptoms of disease process CHF education Medication education-adverse effect Nursing assessment with vital signs I have seen patient Aleks Levin on 08/28/16. My clinical findings support the need for the requested home health care services because: Ltd mobility - disease progression I certify that my clinical findings support that this patient is homebound because: Hx COPD- exertion dyspnea/weakness Unsafe to leave home unassisted Cheko Benedict MD Aug 28, 2016 14:43
[2016-08-28 16:00] VITALS: BP 105/61; PULSE 82; RESP 20; TEMP 98; O2SAT 98
--- NOTE | 2016-08-28 18:34 | HHI.DS ---
Discharge Summary Admission Date Aug 24, 2016 at 19:27 Discharge Date: Aug 28, 2016 Admitting Diagnosis bilateral leg cellulitis, sepsis (1) Sepsis affecting skin Diagnosis: Principal (2) Cellulitis of leg Diagnosis: Principal (3) CKD (chronic kidney disease) stage 4, GFR 15-29 ml/min Diagnosis: Secondary (4) Systolic CHF, acute on chronic Diagnosis: Principal (5) Interstitial fibrosis Diagnosis: Secondary (6) Obstructive sleep apnea Diagnosis: Principal (7) Cardiomyopathy Diagnosis: Secondary (8) Hypertension Diagnosis: Principal (9) Supratherapeutic INR Diagnosis: Principal (10) COPD exacerbation Diagnosis: Principal (11) Hypoxia Diagnosis: Principal (12) CAD (coronary artery disease) Diagnosis: Secondary (13) Hx of CABG Diagnosis: Secondary Brief History This was a pleasant 75-year-old white male with significant past medical history of CAD, cardiomyopathy, chronic kidney disease stage IV, restrictive lung disease and interstitial fibrosis, oxygen dependent, obstructive sleep apnea, chronic A. fib, AICD, cardiac cath in 2015 with stent placement. Patient was a part-time resident in the area, the rest of the year he lives in [facility]. Recently admitted for COPD exacerbation secondary to fibrosis, asbestos exposure. Pt. presented to ED for complaint of leg swelling, tenderness, redness. Initially both legs but now more on the leg. Had a cut to left leg that was oozing clear fluid. Denies any fever and chills. Had made appointment with PCP for next week but the leg pain became severe therefore he presented to ED. He is not sure how he hurt his leg. He is on oxygen, 24/7. Patient chronically short of breath, no chest pain. Renal Ultrasound 08/25/16 0000 Signed Impressions: Service Date/Time: Thursday, August 25, 2016 07:20 - CONCLUSION: 1. 5 cm left renal cyst. 2. Small echogenic kidneys without hydronephrosis. Bryant Gonzales MD FACR Lower Extremity Ultrasound 08/24/16 302 Signed Impressions: Service Date/Time: Wednesday, August 24, 2016 18:17 - CONCLUSION: The study is negative for deep venous thrombosis bilateral lower extremity. Benny Mckeon MD Chest X-Ray 08/24/16 5602 Signed Impressions: Service Date/Time: Wednesday, August 24, 2016 17:19 - CONCLUSION: Stable cardiomegaly. Indistinctness and fullness in the right hilar and infrahilar region may represent either a developing infiltrate or fluid overload. Benny Mckeon MD Blood cultures were obtained, empiric antibiotics were started. Nephrology has been consulted, patient was evaluated by Dr. Ly. Pt. on Bumex and Zaroxolyn. Pt. states he has been drinking a lot of water, leg swelling is increased. Although the left leg is larger than the right. He is noted with perioral and fingertip cyanosis which is chronic. Doesn't appear in any distress. Pt. admitted for further evaluation and treatment. CBC/BMP: 08/28/16 0732 08/28/16 0732 Significant Findings Laboratory Tests Test 08/26/16 08/27/16 08/27/16 08/28/16 07:21 05:54 14:31 07:32 Red Blood Count 3.58 MIL/MM3 3.83 MIL/MM3 4.13 MIL/MM3 (4.50-5.90) (4.50-5.90) (4.50-5.90) Hemoglobin 9.8 GM/DL 10.3 GM/DL 11.5 GM/DL (13.0-17.0) (13.0-17.0) (13.0-17.0) Hematocrit 30.0 % 32.5 % 35.0 % (39.0-51.0) (39.0-51.0) (39.0-51.0) Red Cell Distribution Width 22.0 % 22.1 % 21.7 % (11.6-17.2) (11.6-17.2) (11.6-17.2) Prothrombin Time 48.9 SEC 40.4 SEC 28.2 SEC (9.8-11.6) (9.8-11.6) (9.8-11.6) Chloride Level 97 MEQ/L 97 MEQ/L (98-107) (98-107) Blood Urea Nitrogen 33 MG/DL (7-18) 30 MG/DL (7-18) 26 MG/DL (7-18) Creatinine 2.88 MG/DL 3.07 MG/DL 2.77 MG/DL (0.60-1.30) (0.60-1.30) (0.60-1.30) Estimat Glomerular Filtration 22 ML/MIN (>89) 20 ML/MIN (>89) 23 ML/MIN (>89) Rate Mean Corpuscular Hemoglobin 31.8 % Concent (32.0-36.0) Neutrophils (%) (Auto) 73.2 % 75.9 % (16.0-70.0) (16.0-70.0) Monocytes (%) (Auto) 10.6 % 9.9 % (0.0-8.0) (0.0-8.0) Lymphocytes # (Auto) 0.7 TH/MM3 0.8 TH/MM3 (1.0-4.8) (1.0-4.8) Ovalocytes 1+ (NORMAL) Random Glucose 109 MG/DL (74-106) Blood Gas Oxygen Saturation 88 % (90-100) Arterial Blood pH 7.49 (7.380-7.420) Arterial Blood Partial 33 mmHg (38-42) Pressure CO2 Arterial Blood Partial 57 mmHg Pressure O2 (61-120) Blood Gas Hemoglobin 10.5 G/DL (12.0-16.0) Imaging Last Impressions Chest CT 08/27/16 0000 Signed Impressions: Service Date/Time: Saturday, August 27, 2016 10:37 - CONCLUSION: 1. Moderate right effusion 2. 4 mm nodule right upper lobe. Followup CT scan in 6 months is recommended. 3. No etiology for hemoptysis is identified. Jimmy Cummings MD Ankle X-Ray 08/27/16 0000 Signed Impressions: Service Date/Time: Saturday, August 27, 2016 16:40 - CONCLUSION: 1. Soft tissue swelling. No acute fracture. Dheeraj Gonzales MD Renal Ultrasound 08/25/16 0000 Signed Impressions: Service Date/Time: Thursday, August 25, 2016 07:20 - CONCLUSION: 1. 5 cm left renal cyst. 2. Small echogenic kidneys without hydronephrosis. Bryant Gonzales MD FACR Lower Extremity Ultrasound 08/24/161708 Signed Impressions: Service Date/Time: Wednesday, August 24, 2016 18:17 - CONCLUSION: The study is negative for deep venous thrombosis bilateral lower extremity. Benny Mckeon MD Chest X-Ray 08/24/161708 Signed Impressions: Service Date/Time: Wednesday, August 24, 2016 17:19 - CONCLUSION: Stable cardiomegaly. Indistinctness and fullness in the right hilar and infrahilar region may represent either a developing infiltrate or fluid overload. Benny Mckeon MD PE at Discharge GENERAL: This was an obese well-developed,chronically male who appeared to be in no acute distress. He was alert and awake, HEAD: Normocephalic without any lesion or mass noted. Facial features appear symmetric. OROPHARYNGEAL: Oropharynx without erythema or edema. NECK: Supple. No nuchal rigidity or lymphadenopathy. Trachea midline without deviation. CARDIAC: Regular rhythm, regular rate, S1 and S2 are heard. LUNGS: Mild diminished to auscultation bilaterally. no wheeze No use of accessory muscles on inspiration or expiration. ABDOMEN: Obese, Soft, nontender, no organomegaly or masses. Bowel sounds are heard in all four quadrants. No rebound. No guarding. EXTREMITIES: Trace lower extremity edema. Pulses equal bilateral. NEUROLOGICAL: Patient mood and affect appropriate. No focal deficit SKIN:Warm and moist Objective Remarks My ankles and lower extremities hurt sometimes (Kendal Jonse) Hospital Course Laboratory workup was sent in the emergency room, he was noted with acute on chronic kidney disease, BUN 42, creatinine 3.25. Lactic acid elevated, 2.1, repeat 2.5. WBC stable, 6. INR 4.2., Patient on Coumadin. Chest x-ray was completed, no significant findings. Ultrasound of the legs was negative for DVT. Plan Please note the diagnosis listed were used to develop patient plan of care. Bilateral leg cellulitis, improved with constant elevation -Continue with antibiotics, Zosyn , WBC normal rangebefore discharge Follow cultures throughout stay, negative May want to use wheelchair if he is needing increased ambulation COPD, hypoxia, history of fibrosis Continue with oxygen at 2 L prn DuoNeb's as needed Acute on chronic CHF exacerbation, controlled for now. Cardiology evaling med mangement. Discussion has been around change in some of the medications. Once patient is stable from a cardiac standpoint he can discharge. CT scan, nodule noted right upper lung. Will need follow-up when he is back home in 6 months. Right pleural effusion continues, but stable Old records were obtained from [facility]. Chronic kidney disease stage IV, affected per CVD -Nephrology following, patient probable close to baseline. Improvement today on today's labs. Labs monitored throughout stay. Coronary artery disease with recent stent, Chronic A. fib, on Coumadin. Coumadin on hold, INR elevated. Discussed change to Eliquis when INR 2<, if ok with patient. Follow INR daily, normal range today 2.5 telemetry Hyperlipidemia Continue with home medications Patient goes to [facility] heart failure clinic every 3 weeks when at home, instructed to return when he goes home. Advised, and caution with his long distance travel Protonix for GI prophylaxis DVT prophylaxsis Discharge Planning Home with , possible today or in a.m. when okay with cardiology. Dr. Benedict saw today. Patient was medicall ystable to dc. 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 with patient. Pt Condition on Discharge: Fair Discharge Disposition: Disch w/ Home Health Serv Discharge Instructions DIET: Follow Instructions for: Heart Healthy Diet Activities you can perform: Weight Bearing as Miky Follow up Referrals: Cardiology - 2 Weeks Nephrology - 3 Weeks PCP Follow-up - 2-3 Days Pulmonology - 3 Weeks SNF/[facility]/ with care jason New Medications: Apixaban (Eliquis) 5 Mg Tab 5 MG PO BID blood thining #60 TAB Cephalexin (Cephalexin) 500 Mg Cap 500 MG PO Q8HR cellulitis #21 CAP Continued Medications: Albuterol 18 GM Inh (Ventolin Hfa 18 GM Inh) 90 Mcg/Act Aer 2 PUFF INH BID PRN SHORTNESS OF BREATH #1 Ref 0 INHALER B-Complex Vitamins (Vitamin B Complex) 1 Tab 1 TAB PO DAILY Budesonide-Formoterol Inh (Symbicort Inh) 160-4.5 Mcg/Act Aero 2 PUFF INH BID #1 Ref 0 INHALER Bumetanide (Bumetanide) 1 Mg Tab 1 MG PO BID@09,18 CHF Days 30 TAB Carvedilol (Coreg) 3.125 Mg Tab 3.125 MG PO BID A fib Days 30 TAB Clonazepam (Clonazepam) 2 Mg Tab 2 MG PO HS #90 Ref 0 TAB Clopidogrel (Plavix) 75 Mg Tab 75 MG PO DAILY Blood Clot Prevention #30 Ref 0 TAB Coenzyme Q10 (Ubidecarenone) (Coq-10) 100 Mg Cap 100 MG PO DAILY Colchicine (Colchicine) 0.6 Mg Tab 0.6 MG PO MOWEFR Take 1 tablet (0.6mg) daily on Friday,Friday and Friday Gout Prevention Ref [address] (Nexium) 40 Mg Capdr 40 MG PO DAILY Ref 0 CAP Isosorbide Mononitrate ER (Isosorbide Mononitrate ER) 60 Mg Tab 60 MG PO DAILY Prevent Chest Pain #30 Ref 0 TAB Magnesium (Magnesium) 400 Mg Tab 400 MG PO DAILY Nutritional Supplement Ref 0 TAB Metolazone (Metolazone) 2.5 Mg Tab 2.5 MG PO SUTH Take 1 tablet (2.5mg) 30 minutes before taking Bumex on Friday and #30 Ref 0 TAB Morphine Liq (Morphine Liq) 20 Mg/Ml Liq 10 MG SL Q3H Give (0.5 ml)for severe pain/shortness of breath PRN PAIN SCALE 6 TO 10 Ref 0 ML Multiple Vitamin (Multi Vitamin) 1 Tab Tab 1 TAB PO DAILY TAB Polyethylene Glycol 3350 Powder (Miralax Powder) 17 Gm Powd 17 GM PO DAILY Mix and dissolve one measuring capful (17 grams) in water or juice. PRN CONSTIPATION #1 Ref 0 BOTTLE Potassium Chloride ER (Potassium Chloride ER) 20 Meq Tab 80 MEQ PO BID Electrolyte Replacement #60 Ref 0 TAB Ropinirole (Requip) 3 Mg Tab 3 MG PO HS #30 Ref 0 TAB Rosuvastatin (Crestor) 10 Mg Tab 10 MG PO HS Cholesterol Management #30 Ref 0 TAB Tiotropium Inh (Spiriva Handihaler) 18 Mcg Cap 18 MCG INH DAILY 1 capsule = 18 mcg COPD #30 Ref 0 CAP Discontinued Medications: Amiodarone (Amiodarone) 200 Mg Tab 100 MG PO MOWEFR Take 1/2 tablet (100mg) daily on Friday,Friday and Friday Regulate Heart Beat #30 Ref 0 TAB Clopidogrel (Plavix) 75 Mg Tab 75 MG PO DAILY Blood Clot Prevention #30 Ref 0 TAB Digoxin (Digoxin) 0.125 Mg Tab 0.125 MG PO MOWEFR Take 1 tablet (0.125mg) daily on Friday,Friday and Friday Regulate Heart Beat #30 Ref 0 TAB Warfarin (Coumadin) 2 Mg Tab 2 MG PO SUTUWETHSA Take 1 tablet (2mg) daily in the pm on Friday,Friday, Friday, and Friday Prevent Blood Clot #30 Ref 0 TAB Warfarin (Coumadin) 2 Mg Tab 1 MG PO MOFR Take 1/2 tablet (1mg) daily in the pm on Friday and Friday Prevent Blood Clot #30 Ref 0 TAB Kendal Jones Aug 28, 2016 18:34
[2016-08-29 08:00] VITALS: BP 142/88; PULSE 86; RESP 22; TEMP 98.4; O2SAT 96
[2016-08-29 12:00] VITALS: BP 142/83; PULSE 84; RESP 24; TEMP 98; O2SAT 97
--- NOTE | 2016-09-30 10:31 | RSPPFT ---
DATE OF PROCEDURE: 08/27/16 COMMENTS: Spirometry with FVC of 1.2, FEV1 of 0.8, FEV1/FVC ratio at 69%. A non-significant response to acutely inhaled bronchodilator noted. Flow volume loop suggests airways obstruction. IMPRESSION: 1. Severe obstructive airways disease. 2. Non-significant response to acutely inhaled bronchodilator.
== END 2016-08-28 19:10 | disposition home or self-care (01) | DRG 871 ==
LOC: NEPE 16:58 → NEDA 19:27 → N04B 21:23
PROVIDERS: ADMIT Specialist; ATTEND Specialist
DX: A41.9 Sepsis, unspecified organism (principal); I50.23 Acute on chronic systolic (congestive) heart failure; N18.4 Chronic kidney disease, stage 4 (severe); J84.10 Pulmonary fibrosis, unspecified; I42.9 Cardiomyopathy, unspecified; J44.1 Chronic obstructive pulmonary disease with (acute) exacerbation; I48.2 Chronic atrial fibrillation; G25.81 Restless legs syndrome; L03.115 Cellulitis of right lower limb; L03.116 Cellulitis of left lower limb; I13.0 Hypertensive heart and chronic kidney disease with heart failure and stage 1 through stage 4 chronic kidney disease, or unspecified chronic kidney disease; Z99.81 Dependence on supplemental oxygen; R79.1 Abnormal coagulation profile; Z77.090 Contact with and (suspected) exposure to asbestos; Z95.810 Presence of automatic (implantable) cardiac defibrillator; Z95.1 Presence of aortocoronary bypass graft; Z79.01 Long term (current) use of anticoagulants; Z79.02 Long term (current) use of antithrombotics/antiplatelets; D64.9 Anemia, unspecified; E78.00 Pure hypercholesterolemia, unspecified; N28.9 Disorder of kidney and ureter, unspecified; R09.02 Hypoxemia; R04.0 Epistaxis; M10.9 Gout, unspecified; K21.9 Gastro-esophageal reflux disease without esophagitis; I25.10 Atherosclerotic heart disease of native coronary artery without angina pectoris; E78.5 Hyperlipidemia, unspecified; G47.33 Obstructive sleep apnea (adult) (pediatric); H91.90 Unspecified hearing loss, unspecified ear; Z87.442 Personal history of urinary calculi; Z95.5 Presence of coronary angioplasty implant and graft
CPT/HCPCS: 36600; 71010; 71250; 73610; 76775; 80048; 80053; 80162; 80202; 82805; 83605; 83880; 85025; 85027; 85610; 85730; 87040; 93005; 93970; 94060; 96365; J1650; J2543; J3370; J7040; J7050